=== PATIENT | male | born 1940 | race Caucasian/White ===

== ENCOUNTER 2016-10-02 10:19 | Emergency (ER) | payer MEDICARE, MEDICAID ==
[~2016-10-02] VITALS: Ht 172.7 cm; Wt 83.0 kg
--- NOTE | 2016-10-02 10:40 | NUR ---
PT BIB FAMILY MEMBER FOR RIGHT LEG AND LEFT SHOULDER PAIN. DENIES TRAUMA. NAD NOTED. VSS. SEEN BY MD FOR EVAL. FAMILY MEMBER FOR INFO. SAFETY AND COMFORT MEASURES PROVIDED. WILL MONITOR.
--- NOTE | 2016-10-02 11:02 | NUR ---
ESTEFANY BRUNSON AT FOR DOPPLER STUDY.
--- NOTE | 2016-10-02 11:40 | NUR ---
Patient discharged to home in stable condition. Written and verbal after care instructions given. Patient verbalizes understanding of instruction.
[2016-10-02 11:58] VITALS: BP 152/70
== END 2016-10-02 12:00 | disposition home or self-care (01) ==
LOC: ER 10:22
DX: M77.9 Enthesopathy, unspecified (principal); I10 Essential (primary) hypertension; I49.9 Cardiac arrhythmia, unspecified; N40.0 Benign prostatic hyperplasia without lower urinary tract symptoms
CPT/HCPCS: 73030-TC; 93971-TC; A4606; Z7610

== ENCOUNTER 2020-03-12 08:07 | Inpatient (IN) | payer MEDICARE, OTHER ==
[2020-03-12] VITALS (13 sets, daily range): BP systolic 110–169; BP diastolic 55–96
[~2020-03-12] VITALS: Ht 170.2 cm; Wt 86.2 kg
--- NOTE | 2020-03-12 08:10 | NUR ---
PT BIB FAMILY. COVID + 4 DAYS AGO PER SON. C/O WORSENING SOB AND HYPOXIE W/ O2 SATURATION OF 77% RA . PLACED ON NON REBREATHER MASK WHICH IMPROVES TO 91%. LOW GRADE FEVER CHIEF RADIOLOGY. AWAITING MD AMBROSE.
--- NOTE | 2020-03-12 08:11 | NUR ---
DR RODRIGUEZ INTO SEE PATIENT FOR EVAL.
--- NOTE | 2020-03-12 08:11 | NUR ---
Nat zheng in ED - 03/12/20 at 0912 by LISHA RADIOLOGY AT BEDSIDE FOR CHEST XRAY.
[2020-03-12] MEDS ORDERED: ACETAMINOPHEN ES 500 MG TABLET PO ONE (08:30)
[2020-03-12] MEDS ORDERED: DEXAMETHASONE SOD PHOSPHATE 10 MG/ML VIAL IV ONE (08:30)
[2020-03-12 08:34] LABS: WHITE BLOOD COUNT (AUTO) 9.3 K/uL (4.3-11.0)
[2020-03-12 08:38] LABS: BASOPHILS % (AUTO) 0.1 % (0.0-2.0); EOSINOPHILS % (AUTO) 0.1 % (0.0-6.0); HEMATOCRIT 42 % (39-51); HEMOGLOBIN 13.5 g/dL (13.5-17.5); LYMPHOCYTES # (AUTO) 0.6 /CMM (0.8-4.8); LYMPHOCYTES % (AUTO) 6.1 % (20.0-44.0); MEAN CORPUSCULAR HGB CONC 33 g/dl (31.0-36.0); MEAN CORPUSCULAR VOLUME 91 fL (80-96); MONOCYTES # (AUTO) 0.4 /CMM (0.1-1.30); MONOCYTES % (AUTO) 4.8 % (2.0-12.0); NEUTROPHILS # (AUTO) 8.2 /CMM (1.8-8.9); NEUTROPHILS % (AUTO) 88.9 % (43.0-81.0); PLATELET COUNT (AUTO) 281 /CMM (150-450); RED BLOOD CELL COUNT(AUTO) 4.55 MIL/uL (4.5-6.0)
[2020-03-12] MEDS ORDERED: ACETAMINOPHEN ES 500 MG TABLET ONE (08:40)
[2020-03-12] MEDS ORDERED: DEXAMETHASONE SOD PHOSPHATE 10 MG/ML VIAL ONE (08:40)
--- NOTE | 2020-03-12 08:41 | NUR ---
Nat zheng in [facility] - 03/12/20 at 0842 by CARISSA MOVE SHEET SUBMITTED AND CALLED FOR ICU BED
[2020-03-12] MEDS ORDERED: ASPI-1420 PO (08:43)
[2020-03-12] MEDS ORDERED: ACET-868 PO (08:43)
[2020-03-12] MEDS ORDERED: IBUP-1955 PO (08:43)
--- NOTE | 2020-03-12 08:43 | NUR ---
MOVE SHEET SUBMITTED AND CALLED FOR ICU BED
[2020-03-12 09:00] LABS: ALANINE AMINOTRANSFERASE 54 U/L (12-78); ALBUMIN 2.7 g/dL (3.4-5.0); ALKALINE PHOSPHATASE 55 U/L (46-116); ASPARTATE AMINOTRANSFERASE 53 U/L (15-37); BILIRUBIN,DIRECT 0.2 mg/dL (0.0-0.2); BILIRUBIN,TOTAL 0.5 mg/dL (0.2-1.0); CALCIUM, SERUM 8.3 mg/dL (8.5-10.1); CARBON DIOXIDE 22 mmol/L (21-32); CHLORIDE 95 mmol/L (98-107); CREATININE 1.2 mg/dL (0.6-1.3); GLUCOSE 164 mg/dL (74-106); POTASSIUM 4.2 mmol/L (3.5-5.1); SODIUM SERUM 132 mmol/L (136-145); TOTAL PROTEIN, SERUM 7.8 g/dL (6.4-8.2)
--- NOTE | 2020-03-12 09:07 | NUR ---
PT IS STILL SATTING 86% ON 15L NON REBREATHER MASK. DR RODRIGUEZ MADE AWARE. PLACED ON HIGH FLOW. 60L 100%
[2020-03-12 09:10] LABS: UREA NITROGEN, BLOOD 21 mg/dL (7-18)
--- NOTE | 2020-03-12 09:11 | NUR ---
RADIOLOGY AT BEDSIDE FOR CHEST XRAY.
--- NOTE | 2020-03-12 09:18 | NUR ---
CALLED [facility] FOR [facility] LANDSCAPE ARCHITECT, PAGED
--- NOTE | 2020-03-12 09:58 | NUR ---
room [id number]
--- NOTE | 2020-03-12 10:08 | NUR ---
REPORT GIVEN TO ELVIE COOPER FOR KIKE
--- NOTE | 2020-03-12 10:25 | NUR ---
RN NOTE PATIENT ARRIVED TO UNIT VIA GURNEY ACCOMPANIED BY RN AND RT. PATIENT A/O X4, CITIZEN OF [place] SPEAKING, ABLE TO MAKE NEEDS KNOWN. PATIENT CURRENTLY ON 60L HIGH FLOW OXYGEN VIA NASAL CANNULA AND A 15L NONREBREATHER. OXYGEN SATURATION 96%. NO S/S OF DISTRESS AT THIS TIME. IV ON L AC 20G INTACT AND PATENT, NO S/S OF INFECTION AT THIS TIME. ALL SAFETY MEASURES IN PLACE. BED LOCKED IN LOWEST POSITION CALL LIGHT WITHIN REACH. WILL CONTINUE TO MONITOR AND PROVIDE CARE.
[2020-03-12] MEDS ORDERED: ONDANSETRON HCL/PF 4 MG/2 ML VIAL IVP PRN (10:30)
[2020-03-12] MEDS ORDERED: MAGNESIUM HYDROXIDE 30 ML UDC PO PRN (10:30)
[2020-03-12] MEDS ORDERED: HYDROCODONE/APAP 5/325MG TABLET PO PRN (10:30)
[2020-03-12] MEDS ORDERED: Z GUARD REMEDY 2 OZ OINT TP PRN (10:30)
[2020-03-12] MEDS ORDERED: ENOXAPARIN SODIUM 40 MG/0.4 ML DISP.SYRIN SQ SCH ×3 (10:30→21:00)
[2020-03-12] MEDS ORDERED: ZOLPIDEM TARTRATE 5 MG TABLET PO PRN (10:30)
[2020-03-12] MEDS ORDERED: ACETAMINOPHEN 325 MG TABLET PO PRN (10:30)
[2020-03-12] MEDS ORDERED: MAG HYDROX/AL HYDROX/SIMETH 30 ML UDC PO PRN (10:30)
[2020-03-12] MEDS: ASPIRIN 81 MG TAB.CHEW PO SCH (10:58)
[2020-03-12 11:16] LABS: ABG BASE EXCESS 2.5 mmol/L; ABG OXYGEN SATURATION 95.3 % (92.0-98.5); ABG PCO2 32.6 mmHg (35.0-45.0); ABG PH 7.504 (7.350-7.450); ABG PO2 73.5 mmHg (75.0-100.0); AaDO2 606.9 mmHg; MetHb 0.3 % (0.0-1.5); O2Hb 94.1 % (94.0-97.0); SITE, ABG Right Radial; VENT MODE, BG HFNC 60L 100% +NRB
[2020-03-12 11:48] LABS: THYROID STIMULATING HORMONE 0.573 uIU/mL (0.358-3.74)
[2020-03-12 12:12] LABS: CALCIUM, SERUM 8.2 mg/dL (8.5-10.1); POTASSIUM 4.3 mmol/L (3.5-5.1)
[2020-03-12] MEDS ORDERED: REMDESIVIR (CHARGED) 200 MG, *LOADING DOSE 1 EA in IV NS 0.9% 210 ML IV ONE (13:00)
[2020-03-12] MEDS ORDERED: ENOXAPARIN SODIUM 40 MG/0.4 ML DISP.SYRIN SQ ONE (13:13)
[2020-03-12] MEDS ORDERED: CEFTRIAXONE 1 G in IV D5W 50 ML IV SCH (13:30)
--- NOTE | 2020-03-12 14:54 | NUR ---
PATIENT REMOVED NONREBREATHER MASK, COMPLAINED OF NOISE BEING TOO LOUD. MONITORED PATIENT OFF NONREBREATHER, OXYGEN SATURATION CONTINUED TO BE 95-96% WITH JUST HIGH FLOW OXYGEN.
--- NOTE | 2020-03-12 18:50 | NUR ---
PATIENT PLACED BACK ON NONREBREATHER DUE TO DESATURATING DOWN TO 88. RT INFORMED TO ASSESS PATIENT.
--- NOTE | 2020-03-12 19:15 | NUR ---
RN CLOSING NOTE PATIENT CURRENTLY IN BED, RESTING. PATIENT A/O X4, AFGHAN SPEAKING, ABLE TO MAKE NEEDS KNOWN. PATIENT CURRENTLY ON 60L HIGH FLOW OXYGEN VIA NASAL CANNULA AND A 15L NONREBREATHER. OXYGEN SATURATION 92%. NO S/S OF DISTRESS AT THIS TIME. IV ON L AC 20G INTACT AND PATENT, NO S/S OF INFECTION AT THIS TIME. ALL SAFETY MEASURES IN PLACE. BED LOCKED IN LOWEST POSITION CALL LIGHT WITHIN REACH. WILL ENDORSE TO RETOUCHING OPERATOR NURSE FOR KIKE.
--- NOTE | 2020-03-12 19:23 | NUR ---
RT NOTE PT RECEIVED ON HFNC 60L 100% W/O NON REBREATHER SATURATING 94%. PT SITING UP RESTING COMFORTABLY. NO SOB OR RESPIRATORY DISTRESS NOTED @ THIS TIME. Addendum: 03/12/20 at 2201 by OSCAR LOUIS RT Amended: Links added. Addendum: 03/12/20 at 2212 by OSCAR LOUIS RT WITH NON REBREATHER @ 15L 100%
--- NOTE | 2020-03-12 19:35 | NUR ---
RN NOTES RECEIVED PATIENT IN BED, ALERT AND ORIENTED X 4. VERBALLY RESPONSIVE. ON O2 HIGHFLOW AT 60L AND NONREBREATER 15L. O2 SAT AT 92 %. PT DENIES ANY SOB. HOB SLIGHTLY ELEVATED. ON TELE MONITOR, SR HR AT 95. IV ON LAC, FLUSHED. PATENT AND INTACT. NO INFILTRATION NOTED. ALL SAFETY MEASURES IMPLEMENTED PER PROTOCOL. SIDE RAILS UP X 2. CALL LIGHT WITHIN REACH. BED LOCKED IN LOWEST POSITION.
--- NOTE | 2020-03-12 20:20 | NUR ---
RN NOTE PATIENT STARTED HAVING SHORTNESS OF BREATH, REMAINS IN BED. O2 SAT AT 77 % WITH HFNC 60L AND NONREBREATHER. PT RESPONDING VERBALLY. CALLED RT. RELAXATION TECHNIQUES GIVEN.
--- NOTE | 2020-03-12 20:45 | NUR ---
RN NOTE PT STILL HAVING SOB. WITH O2 SAT AT 81%. RT, CHARGE NURSE AND PT DAUGHTER, VIDYA AT BEDSIDE. ABG WAS ORDERED, NOTED AND CARRIED OUT.
[2020-03-12 20:54] LABS: ABG BASE EXCESS -3.7 mmol/L; ABG OXYGEN SATURATION 75.8 % (92.0-98.5); ABG PCO2 30.5 mmHg (35.0-45.0); ABG PH 7.423 (7.350-7.450); AaDO2 641.5 mmHg; COHb 0.5 % (0.5-1.5); MetHb 0.3 % (0.0-1.5); O2Hb 75.2 % (94.0-97.0); SITE, ABG Right Radial; VENT MODE, BG HFNC 60L 100% + NRB
--- NOTE | 2020-03-12 20:56 | NUR ---
RN NOTE SALES REPRESENTATIVE MARINE SUPPLIES TOMMY PERDOMO NOTIFIED ABOUT ABG RESULTS. GAVE ORDERS TO INTUBATE PT. HR 158. BP 118/92 R 30 02 SAT 74 %. CALLED ER DOCTOR.
--- NOTE | 2020-03-12 21:25 | NUR ---
RN NOTES PT INTUBATED BY DR MARTIN.
--- NOTE | 2020-03-12 21:32 | NUR ---
RN NOTE S/P INTUBATION PT WENT TO VTACH. HR 178 BP 127/94. PER DR MARTIN, ITS STABLE VTACH. EKG WAS ORDERED.
--- NOTE | 2020-03-12 21:33 | NUR ---
RN NOTE CHILDCARE DIRECTOR LEANNE ORDERED PROPOFOL. NOTED AND CARRIED OUT. STARTED PROPOFOL PER PROTOCOL, 5 MCG/KG/MIN.
--- NOTE | 2020-03-12 21:50 | NUR ---
RN NOTE AMIODARONE DRIP STARTED BY CHARGE NURSE. STARTED AT 1MG FOR 6 HOURS
--- NOTE | 2020-03-12 22:00 | NUR ---
RN NOTE PT REMAINS SEDATED. VENT SETTINGS TOLERATING WELL. NO DISTRESS NOTED. NO S/SX OF PAIN. BILATERAL SOFT WRIST RESTRAINT ON. BP 137/96 HR 169. WILL CONTINUE TO MONITOR.
[2020-03-12] MEDS: PROPOFOL 100 ML IV PRN (22:02)
[2020-03-12] MEDS: ENOXAPARIN SODIUM 80 MG/0.8 ML DISP.SYRIN SQ SCH (22:12)
[2020-03-12] MEDS ORDERED: IV LIDOCAINE HCL/D5W/PF/500ML 2,000 MG in PREMIX 1 EA IV PRN (22:30)
[2020-03-12] MEDS: AMIODARONE 450 MG in IV D5W 250 ML IV PRN (22:53)
[2020-03-12 23:19] LABS: ABG BASE EXCESS -7.8 mmol/L; ABG OXYGEN SATURATION 96.5 % (92.0-98.5); ABG PCO2 41.4 mmHg (35.0-45.0); ABG PH 7.272 (7.350-7.450); ABG PO2 98.4 mmHg (75.0-100.0); AaDO2 573.2 mmHg; COHb 0.8 % (0.5-1.5); MetHb 0.1 % (0.0-1.5); O2Hb 95.6 % (94.0-97.0); PEEP,BG 10 cm H2O; SITE, ABG Right Radial; VENT MODE, BG AC 100%; VT, ABG 500 mL
[2020-03-12 23:21] LABS: MAGNESIUM 2.4 mg/dL (1.8-2.4)
[2020-03-12] MEDS ORDERED: CEFEPIME 1 GM VIAL ONE (23:25)
--- NOTE | 2020-03-12 23:29 | NUR ---
RN NOTE RECEIVED A CALL FROM ELAINE FROM LAB, LACTIC ACID 5.5 AND TROPONIN I 10.436. VARNISH MIXER TOMMY PERDOMO MADE AWARE, NO NEW ORDER AT THIS TIME.
[2020-03-12] MEDS ORDERED: SODIUM BICARBONATE SYR 50 MEQ/50 ML DISP.SYRIN IV ONE (23:30)
--- NOTE | 2020-03-12 23:30 | NUR ---
RN NOTE ABG RESULT PH 7.272, PCO2 41.4 PO2 98.4 HCO3 18.7 B 7.8. DERRICK BOAT OPERATOR KE AWARE. ORDERED SODIUM BICARB 1AMP. NOTED AND CARRIED OUT.
[2020-03-12] MEDS: CEFEPIME 2 GM in IV D5W 100 ML IV SCH (23:33)
[2020-03-13] VITALS (79 sets, daily range): BP systolic 69–132; BP diastolic 44–89
--- NOTE | 2020-03-13 00:35 | NUR ---
RN NOTE JEFFERSON CATHETER INSERTED, WITH CLEAR URINE OUTPUT, INDWELLING WELL. NO S/SX OF INFECTION.
[2020-03-13] MEDS: NOREPINEPHRINE 32 MG in IV NS 0.9% 218 ML IV PRN ×2 (00:37→10:03)
[2020-03-13] MEDS ORDERED: AMIODARONE 150 MG/3 ML VIAL IV ONE ×2 (03:11→09:07)
[2020-03-13] MEDS ORDERED: TAMS-12 PO (04:30)
[2020-03-13] MEDS ORDERED: FINA5TAB11 PO (04:30)
--- NOTE | 2020-03-13 04:30 | NUR ---
RN NOTE NOTED WITH ELEVATED TEMP OF 101.9. COOLING MEASURES APPLIES. PT REMAINS SEDATED. SHEARER PRINTED CIRCUIT BOARDS TOMMY PERDOMO NOTIFIED. ATTEMPTED TO INSERT NGT. PT DAUGHTER VIDYA, REFUSED.
[2020-03-13 06:05] LABS: ABG BASE EXCESS -1.3 mmol/L; ABG OXYGEN SATURATION 99.1 % (92.0-98.5); ABG PCO2 33.2 mmHg (35.0-45.0); AaDO2 392.8 mmHg; COHb 0.1 % (0.5-1.5); MetHb 0.3 % (0.0-1.5); O2Hb 98.7 % (94.0-97.0); PEEP,BG 15 cm H2O; SITE, ABG Right Radial; VENT MODE, BG AC 30 500 100% +15; VT, ABG 500 mL
[2020-03-13 06:07] LABS: BASOPHILS % (AUTO) 0.2 % (0.0-2.0); HEMATOCRIT 43 % (39-51); HEMOGLOBIN 13.9 g/dL (13.5-17.5); LYMPHOCYTES # (AUTO) 0.8 /CMM (0.8-4.8); LYMPHOCYTES % (AUTO) 4.6 % (20.0-44.0); MEAN CORPUSCULAR HGB CONC 33 g/dl (31.0-36.0); MEAN CORPUSCULAR VOLUME 89 fL (80-96); MONOCYTES # (AUTO) 1.2 /CMM (0.1-1.30); MONOCYTES % (AUTO) 6.7 % (2.0-12.0); NEUTROPHILS # (AUTO) 15.9 /CMM (1.8-8.9); NEUTROPHILS % (AUTO) 88.5 % (43.0-81.0); PLATELET COUNT (AUTO) 440 /CMM (150-450); RED BLOOD CELL COUNT(AUTO) 4.77 MIL/uL (4.5-6.0); WHITE BLOOD COUNT (AUTO) 17.9 K/uL (4.3-11.0)
[2020-03-13 06:24] LABS: ALANINE AMINOTRANSFERASE 855 U/L (12-78); ALBUMIN 2.3 g/dL (3.4-5.0); ALKALINE PHOSPHATASE 72 U/L (46-116); ASPARTATE AMINOTRANSFERASE 925 U/L (15-37); BILIRUBIN,DIRECT 0.5 mg/dL (0.0-0.2); BILIRUBIN,TOTAL 0.6 mg/dL (0.2-1.0); CALCIUM, SERUM 8.1 mg/dL (8.5-10.1); CARBON DIOXIDE 25 mmol/L (21-32); CHLORIDE 98 mmol/L (98-107); CREATININE 1.8 mg/dL (0.6-1.3); GLUCOSE 169 mg/dL (74-106); MAGNESIUM 2.5 mg/dL (1.8-2.4); PHOSPHORUS 3.7 mg/dL (2.5-4.9); POTASSIUM 4.5 mmol/L (3.5-5.1); SODIUM SERUM 133 mmol/L (136-145); TOTAL PROTEIN, SERUM 6.9 g/dL (6.4-8.2); UREA NITROGEN, BLOOD 31 mg/dL (7-18)
[2020-03-13 06:33] LABS: CHOLESTEROL 183 mg/dL (<200); HDL CHOLESTEROL 33 mg/dL (40-60); LDL 126 mg/dL (0-99); THYROID STIMULATING HORMONE 0.296 uIU/mL (0.358-3.74); TRIGLYCERIDES 167 mg/dL (30-150)
--- NOTE | 2020-03-13 06:50 | NUR ---
RN NOTE TRANSFERRED PT TO ICU. PT REMAIN SEDATED, TOLERATING VENT SETTINGS. ON PROPOFOL 40MCG/KG/MIN, ON AMIODARONE DRIP 0.5MG AND LEVOPHED AT O.4MCG. NO DISTRESS NOTED. REPORTED TO ICU NURSE GINA REGARDING PTS STATUS, AND ELEVATED BODY TEMP.
[2020-03-13] MEDS: AMIODARONE 450 MG in IV D5W 250 ML IV PRN (07:05)
--- NOTE | 2020-03-13 07:06 | NUR ---
COMPUTER TYPESETTER RCDanny PT FROM ICU OF PT IS NSR ON MONITOR. SEDATED ON PROPOFOL @ 40 MCG/KG/MIN. BSWR IN PLACE FOR SAFETY. INTUBATED 7.5@ 23 W/VENT SETTINGS AC 30 500 100% +5. JEFFERSON CATH IN PLACE DRAINING YELLOW COLORED URINE. TRINITY PICC PATENT. NO SKIN ISSUES AT THIS TIME. PENDING BLE DOPPLER TO R/O DVT. DAUGHTER AT BEDSIDE.
--- NOTE | 2020-03-13 07:27 | NUR ---
decreased fio2 from 100% to 60% due to 287 pao2 and 100% spo2. rn notified on changes. Addendum: 03/13/20 at 0728 by MIKAL ROSENBAUM RT Amended: Links added.
[2020-03-13] MEDS ORDERED: PANTOPRAZOLE 40 MG TABLET.DR PO SCH (07:30)
[2020-03-13 07:31] LABS: FERRITIN 4976 ng/mL (8-388)
--- NOTE | 2020-03-13 08:00 | NUR ---
RN NOTES RECEIVED PATIENT IN THE BED EET SEETHING WITH MECHANICAL VENTILATOR, TOLERATING WELL, OGT INSERTED, INFUSING ON TRINITY PICC LINE DIPRIVAN 4MCG, LEVOPHED 0.4 MCG, PATIENT T-100.3 F, COOLING MEASURE DONE, ALSO ADMINISTERED TYLENOL VIA OGT, AND SCHEDULED MEDICATION. JEFFERSON DRAINING YELLOW OUTPUT, ASSIST TURN AND REPOSTION Q 2 HR. WILL MONITORING.
[2020-03-13] MEDS: PROPOFOL 100 ML IV PRN ×7 (08:34→22:42)
--- NOTE | 2020-03-13 08:44 | NUR ---
vent changes below per dr. red: fio2 50% peep + 10 rn notified on changes. Addendum: 03/13/20 at 0845 by MIKAL ROSENBAUM RT Amended: Links added.
[2020-03-13] MEDS ORDERED: VANCOMYCIN 1 GM in IV D5W 250ml IV SCH (09:00)
[2020-03-13] MEDS ORDERED: FEE EMEERGENCY 1 MIN EA MC ONE (09:07)
[2020-03-13] MEDS: DEXAMETHASONE SOD PHOSPHATE 10 MG/ML VIAL IV SCH (09:29)
[2020-03-13] MEDS: HYDROCORTISONE SOD SUCCINATE 100 MG/2 ML VIAL IV SCH ×3 (09:29→21:57)
[2020-03-13] MEDS: ASPIRIN 81 MG TAB.CHEW PO SCH (09:29)
[2020-03-13] MEDS: ENOXAPARIN SODIUM 80 MG/0.8 ML DISP.SYRIN SQ SCH ×2 (09:39→21:57)
[2020-03-13] MEDS: ACETAMINOPHEN 650 MG/20.3 ML UDC NG PRN (10:30)
--- NOTE | 2020-03-13 10:31 | NUR ---
rn notes administered tylenol 650 ml via OGT, and scheduled medication, echo done EF 15 to 20, per US it help desk technician will notify wall scraper Dr Shelton.
[2020-03-13] MEDS: CEFEPIME 2 GM in IV D5W 100 ML IV SCH ×2 (11:11→21:59)
[2020-03-13] MEDS ORDERED: REMDESIVIR (CHARGED) 100 MG in IV NS 0.9% 230 ML IV SCH (13:00)
--- NOTE | 2020-03-13 14:03 | NUR ---
rn notes GET LAB RESULT TROPONIN LEVEL 159.49 CRITICAL RESULT , NOTIFIED BONUS CLERK Dr KAMARA, WAITING FOR RESPOND.
--- NOTE | 2020-03-13 18:37 | NUR ---
rn notes pm care done, v/s stable, patient tolerating EET setting well. Patient on Diprivan 75mcg, Levophed 0.3 mcg at this time, assist turn and reposition q 2 hr, Frank draining 725ml output, endorsed oncoming nurse follow plan of care.
--- NOTE | 2020-03-13 20:27 | NUR ---
RT pt found on mechanical vent with current settings. orally intubated. ett size 7.5, 22@lip. charting states 23@lip, pt has good volume on vent. will notify day shift. jay harvey, made aware. ett secure. vent plugged in to red outlet. ambu bag at bedside. small, thick blood tinged/phillips secretions suctioned via ett. will continue to monitor.
[2020-03-14] VITALS (87 sets, daily range): BP systolic 90–154; BP diastolic 56–101
[2020-03-14 05:00] LABS: BASOPHILS % (AUTO) 0.2 % (0.0-2.0); HEMATOCRIT 41 % (39-51); HEMOGLOBIN 13.4 g/dL (13.5-17.5); LYMPHOCYTES # (AUTO) 0.7 /CMM (0.8-4.8); LYMPHOCYTES % (AUTO) 4.2 % (20.0-44.0); MEAN CORPUSCULAR HGB CONC 33 g/dl (31.0-36.0); MEAN CORPUSCULAR VOLUME 89 fL (80-96); MONOCYTES # (AUTO) 0.4 /CMM (0.1-1.30); MONOCYTES % (AUTO) 2.8 % (2.0-12.0); NEUTROPHILS # (AUTO) 14.9 /CMM (1.8-8.9); NEUTROPHILS % (AUTO) 92.8 % (43.0-81.0); PLATELET COUNT (AUTO) 456 /CMM (150-450); RED BLOOD CELL COUNT(AUTO) 4.63 MIL/uL (4.5-6.0)
[2020-03-14 05:13] LABS: CALCIUM, SERUM 7.9 mg/dL (8.5-10.1); CARBON DIOXIDE 25 mmol/L (21-32); CHLORIDE 102 mmol/L (98-107); CREATININE 1.7 mg/dL (0.6-1.3); GLUCOSE 199 mg/dL (74-106); POTASSIUM 3.5 mmol/L (3.5-5.1); SODIUM SERUM 138 mmol/L (136-145); UREA NITROGEN, BLOOD 34 mg/dL (7-18)
[2020-03-14 05:14] LABS: ALANINE AMINOTRANSFERASE 595 U/L (12-78); ALBUMIN 1.9 g/dL (3.4-5.0); ALKALINE PHOSPHATASE 70 U/L (46-116); ASPARTATE AMINOTRANSFERASE 414 U/L (15-37); BILIRUBIN,TOTAL 0.6 mg/dL (0.2-1.0); MAGNESIUM 2.7 mg/dL (1.8-2.4); PHOSPHORUS 3.3 mg/dL (2.5-4.9); TOTAL PROTEIN, SERUM 6.8 g/dL (6.4-8.2)
[2020-03-14] MEDS: HYDROCORTISONE SOD SUCCINATE 100 MG/2 ML VIAL IV SCH ×3 (05:35→22:28)
[2020-03-14] MEDS: PROPOFOL 100 ML IV PRN ×5 (06:28→23:27)
[2020-03-14] MEDS ORDERED: ASPIRIN 81 MG TAB.CHEW NG SCH (06:44)
[2020-03-14] MEDS ORDERED: MAG HYDROX/AL HYDROX/SIMETH 30 ML UDC NG PRN (06:44)
[2020-03-14] MEDS ORDERED: MAGNESIUM HYDROXIDE 30 ML UDC NG PRN (06:45)
[2020-03-14] MEDS: NOREPINEPHRINE 32 MG in IV NS 0.9% 218 ML IV PRN (07:53)
--- NOTE | 2020-03-14 08:00 | NUR ---
received pt from operations supervisor 2nd shift, sedated on Diprivan at 75mcg, SR, intubated, sat well on 50% fi02, peep 10, lungs congested, no edema, OG clamped, f/c good output, v/s stable, no pain, pt turned and repositioned.
--- NOTE | 2020-03-14 08:06 | NUR ---
Patient remains in no acute distress in bed. patient tolerating vent setting well with o2 sat @ 94%. Patient currently on pressure support medication Levo @ 0.2 mcg. Patient is sedated on propofol @ 75 mcg. Patient is sedated and not showing any s/s of difficulty breathing or pain at this time. Patient turned and repositioned Q2H and bath given at 0400. Skin is clean dry and intact. Oral care performed Q4H PRN. bed in low lock position with rails up x 2. call light within reach and all safety measures ensured and carried out. will endorse care to am RN for continuity of care.
[2020-03-14 08:34] LABS: BILIRUBIN,DIRECT 0.4 mg/dL (0.0-0.2); BILIRUBIN,TOTAL 0.5 mg/dL (0.2-1.0); TOTAL PROTEIN, SERUM 6.8 g/dL (6.4-8.2)
[2020-03-14] MEDS: ZINC SULFATE 220 MG CAPSULE PO SCH (08:42)
[2020-03-14] MEDS: CHOLECALCIFEROL 1,000 UNIT TABLET (VIT D3) PO SCH (08:42)
[2020-03-14] MEDS: ASPIRIN 81 MG TAB.CHEW NG SCH (08:42)
[2020-03-14] MEDS: DEXAMETHASONE SOD PHOSPHATE 10 MG/ML VIAL IV SCH (08:42)
[2020-03-14] MEDS: PANTOPRAZOLE 40 MG/PACK PACK NG SCH (08:42)
[2020-03-14] MEDS: ENOXAPARIN SODIUM 80 MG/0.8 ML DISP.SYRIN SQ SCH ×2 (08:50→22:29)
--- NOTE | 2020-03-14 15:24 | NUR ---
ETT PUSHED IN AND SECURED AT 28CM AT THE LIP PER DR PELEG. ALLISON FRENCH AWARE Addendum: 03/14/20 at 1525 by OMER MICHELLE Amended: Links added.
--- NOTE | 2020-03-14 16:54 | NUR ---
pt is resting in the bed, sedated on Diprivan at 75mcg, SR, sat well on 50% fio2, good urine output, v/s stable, no pain, pt cleaned, changed and repositioned.
--- NOTE | 2020-03-14 20:16 | NUR ---
PT REC'D ORALLY INTUBATED VIA ETT 7.5 SECURED @ 28 [facility] WITH THE SETTINGS OF AC 30, 500,50%,PEEP 10. NO RESPIRATORY DISTRESS NOTED AT THIS TIME. SX DONE . ALARMS ARE SET AND AUDIBLE. VENT PLUGGED INTO RED OUTLET. AMBU BAG@ BEDSIDE. WILL CONTINUE TO MONITOR T/O THE SHIFT.
[2020-03-14] MEDS: CEFEPIME 2 GM in IV D5W 100 ML IV SCH (22:31)
[2020-03-15] VITALS (91 sets, daily range): BP systolic 77–138; BP diastolic 48–89
[2020-03-15] MEDS: PROPOFOL 100 ML IV PRN ×8 (02:00→23:56)
[2020-03-15 05:20] LABS: BASOPHILS % (AUTO) 0.2 % (0.0-2.0); HEMATOCRIT 41 % (39-51); HEMOGLOBIN 13.5 g/dL (13.5-17.5); LYMPHOCYTES # (AUTO) 0.7 /CMM (0.8-4.8); LYMPHOCYTES % (AUTO) 4.6 % (20.0-44.0); MEAN CORPUSCULAR HGB CONC 33 g/dl (31.0-36.0); MEAN CORPUSCULAR VOLUME 89 fL (80-96); MONOCYTES # (AUTO) 0.4 /CMM (0.1-1.30); MONOCYTES % (AUTO) 2.9 % (2.0-12.0); NEUTROPHILS # (AUTO) 13.9 /CMM (1.8-8.9); NEUTROPHILS % (AUTO) 92.3 % (43.0-81.0); PLATELET COUNT (AUTO) 533 /CMM (150-450); RED BLOOD CELL COUNT(AUTO) 4.54 MIL/uL (4.5-6.0); WHITE BLOOD COUNT (AUTO) 15.1 K/uL (4.3-11.0)
[2020-03-15 05:33] LABS: ALANINE AMINOTRANSFERASE 475 U/L (12-78); ALKALINE PHOSPHATASE 74 U/L (46-116); ASPARTATE AMINOTRANSFERASE 194 U/L (15-37); BILIRUBIN,DIRECT 0.4 mg/dL (0.0-0.2); BILIRUBIN,TOTAL 0.6 mg/dL (0.2-1.0); CARBON DIOXIDE 23 mmol/L (21-32); CHLORIDE 104 mmol/L (98-107); CREATININE 1.8 mg/dL (0.6-1.3); GLUCOSE 213 mg/dL (74-106); SODIUM SERUM 140 mmol/L (136-145); UREA NITROGEN, BLOOD 41 mg/dL (7-18)
[2020-03-15 05:35] LABS: ABG OXYGEN SATURATION 96.9 % (92.0-98.5); ABG PCO2 32.7 mmHg (35.0-45.0); ABG PH 7.434 (7.350-7.450); ABG PO2 93.8 mmHg (75.0-100.0); AaDO2 225.9 mmHg; COHb 0.6 % (0.5-1.5); MetHb 0.3 % (0.0-1.5); PEEP,BG 10 cm H2O; SITE, ABG Right Radial; VT, ABG 500 mL
[2020-03-15 05:39] LABS: ALBUMIN 1.8 g/dL (3.4-5.0)
[2020-03-15 06:05] LABS: FERRITIN 2745 ng/mL (8-388)
[2020-03-15] MEDS: HYDROCORTISONE SOD SUCCINATE 100 MG/2 ML VIAL IV SCH ×3 (06:22→19:00)
[2020-03-15] MEDS ORDERED: IBUPROFEN 600 MG TABLET PO PRN (08:30)
[2020-03-15] MEDS ORDERED: ACETAMINOPHEN 325 MG TABLET PO PRN (08:30)
[2020-03-15] MEDS ORDERED: ASPIRIN EC 81 MG TABLET.DR PO SCH (09:00)
--- NOTE | 2020-03-15 09:11 | NUR ---
WOUND CARE CONSULT: REVIEWED CHART, NURSING DOCUMENTATION WHICH INDICATES INTUBATED PATIENT. RECOMMENDATIONS MADE FOR SKIN PROTECTION. DISCUSSED WITH NURSING STAFF. PT IS ON [facility] LOW AIRSS BED. MD IN AGREEMENT WITH PLAN OF CARE.
[2020-03-15] MEDS: ZINC SULFATE 220 MG CAPSULE PO SCH (09:38)
[2020-03-15] MEDS: CHOLECALCIFEROL 1,000 UNIT TABLET (VIT D3) PO SCH (09:38)
[2020-03-15] MEDS: DEXAMETHASONE SOD PHOSPHATE 10 MG/ML VIAL IV SCH (09:38)
[2020-03-15] MEDS: ASPIRIN 81 MG TAB.CHEW NG SCH (09:38)
[2020-03-15] MEDS: TAMSULOSIN 0.4 MG CAP.SR.24H PO SCH (09:39)
[2020-03-15] MEDS: PANTOPRAZOLE 40 MG/PACK PACK NG SCH (09:39)
[2020-03-15] MEDS: FINASTERIDE (5 MG) 5 MG TABLET PO SCH (09:39)
[2020-03-15] MEDS: ENOXAPARIN SODIUM 80 MG/0.8 ML DISP.SYRIN SQ SCH ×2 (09:40→21:39)
[2020-03-15] MEDS: NOREPINEPHRINE 32 MG in IV NS 0.9% 218 ML IV PRN (11:56)
[2020-03-15] MEDS: PROSOURCE / PROSTAT (PYXIS) 30 ML UDC GT SCH (17:24)
[2020-03-15] MEDS: CEFEPIME 2 GM in IV D5W 100 ML IV SCH (21:38)
--- NOTE | 2020-03-15 21:48 | NUR ---
RT NOTE PT RECEIVED INTUBATED WITH 7.5 ET TUBE @ 28 CM. SX DONE, SMALL CLEAR SECRETIONS NOTED. BILATERAL CHEST RISE NOTED. NO DISTRESS NOTED. ALARMS ON AND AUDIBLE. VENT PLUGGED TO RED OUTLET. WILL CONTINUE TO MONITOR CLOSELY. Addendum: 03/15/20 at 2150 by GIA FERRIS RT Amended: Links added.
--- NOTE | 2020-03-15 22:00 | NUR ---
agricultural produce sorter. initial assessment, received the pt orally intubated. sedated with diprivan. ett 7.5,lip 26,ac 30,tv 500,fio2 50%,peep 10. sat 98%, no acute distress noted, capacity planning engineer showing nsr.iv rt upper arm picc line levophed 0.1mcg/kg/min,propofol 55mcg/kg/min, hob elevated. ogt feeding tolerated well. fc patent. omar soft wrist restraint checked and released. no injue=ry or redness noted. turn and reposition will continue to monitor vitals,
[2020-03-16] VITALS (90 sets, daily range): BP systolic 93–144; BP diastolic 49–81
--- NOTE | 2020-03-16 01:00 | NUR ---
agriculture engineer. 0000. fever 100. tylenol given per ordered
[2020-03-16 04:19] LABS: BASOPHILS % (AUTO) 0.1 % (0.0-2.0); HEMATOCRIT 38 % (39-51); HEMOGLOBIN 12.3 g/dL (13.5-17.5); LYMPHOCYTES # (AUTO) 0.9 /CMM (0.8-4.8); LYMPHOCYTES % (AUTO) 5.8 % (20.0-44.0); MEAN CORPUSCULAR HGB CONC 33 g/dl (31.0-36.0); MEAN CORPUSCULAR VOLUME 90 fL (80-96); MONOCYTES # (AUTO) 0.4 /CMM (0.1-1.30); MONOCYTES % (AUTO) 2.9 % (2.0-12.0); NEUTROPHILS # (AUTO) 13.5 /CMM (1.8-8.9); NEUTROPHILS % (AUTO) 91.2 % (43.0-81.0); PLATELET COUNT (AUTO) 495 /CMM (150-450); RED BLOOD CELL COUNT(AUTO) 4.21 MIL/uL (4.5-6.0); WHITE BLOOD COUNT (AUTO) 14.9 K/uL (4.3-11.0)
[2020-03-16 04:31] LABS: ALANINE AMINOTRANSFERASE 321 U/L (12-78); ALBUMIN 1.6 g/dL (3.4-5.0); ALKALINE PHOSPHATASE 75 U/L (46-116); ASPARTATE AMINOTRANSFERASE 129 U/L (15-37); BILIRUBIN,DIRECT 0.4 mg/dL (0.0-0.2); BILIRUBIN,TOTAL 0.5 mg/dL (0.2-1.0); CALCIUM, SERUM 8.1 mg/dL (8.5-10.1); CARBON DIOXIDE 26 mmol/L (21-32); CHLORIDE 107 mmol/L (98-107); GLUCOSE 203 mg/dL (74-106); POTASSIUM 3.9 mmol/L (3.5-5.1); SODIUM SERUM 143 mmol/L (136-145); TOTAL PROTEIN, SERUM 6.6 g/dL (6.4-8.2); UREA NITROGEN, BLOOD 60 mg/dL (7-18)
[2020-03-16 05:24] LABS: ABG BASE EXCESS -0.6 mmol/L; ABG PCO2 35.1 mmHg (35.0-45.0); ABG PH 7.437 (7.350-7.450); ABG PO2 73.6 mmHg (75.0-100.0); AaDO2 315.6 mmHg; COHb 0.9 % (0.5-1.5); MetHb 0.3 % (0.0-1.5); O2Hb 92.9 % (94.0-97.0); PEEP,BG 5 cm H2O; SITE, ABG Right Radial; VENT MODE, BG AC 30 500 60%+5; VT, ABG 500 mL
--- NOTE | 2020-03-16 07:03 | NUR ---
rn surgery icu. am care, given. linen changed, remaining same vent setting tolearted well. sat 94%, no acute distress noted. laboratory monitor showing nsr. iv rt upper arm picc line. levophed 0.1mcg/kg/min, diprivan 55mcg/kg/min. hob eleavted. ogt feeding tolerated well. febrile at this time. turn and reposition q2h. will continue to monitor vitals.
--- NOTE | 2020-03-16 07:06 | NUR ---
vocational horticulture instructor. fc patent. urine draining. omar soft wrist restraint checked and released. no injury or redness noted.
[2020-03-16] MEDS: ASPIRIN 81 MG TAB.CHEW NG SCH (08:23)
[2020-03-16] MEDS: CHOLECALCIFEROL 1,000 UNIT TABLET (VIT D3) PO SCH (08:23)
[2020-03-16] MEDS: ZINC SULFATE 220 MG CAPSULE PO SCH (08:23)
[2020-03-16] MEDS: TAMSULOSIN 0.4 MG CAP.SR.24H PO SCH (08:23)
[2020-03-16] MEDS: PANTOPRAZOLE 40 MG/PACK PACK NG SCH (08:23)
[2020-03-16] MEDS: HYDROCORTISONE SOD SUCCINATE 100 MG/2 ML VIAL IV SCH ×2 (08:23→16:07)
[2020-03-16] MEDS: FINASTERIDE (5 MG) 5 MG TABLET PO SCH (08:23)
[2020-03-16] MEDS: DEXAMETHASONE SOD PHOSPHATE 10 MG/ML VIAL IV SCH (08:23)
[2020-03-16] MEDS: PROSOURCE / PROSTAT (PYXIS) 30 ML UDC GT SCH ×2 (08:25→16:07)
[2020-03-16] MEDS: ENOXAPARIN SODIUM 80 MG/0.8 ML DISP.SYRIN SQ SCH ×2 (08:27→21:13)
[2020-03-16] MEDS: PROPOFOL 100 ML IV PRN ×5 (10:13→23:28)
[2020-03-16] MEDS: NOREPINEPHRINE 32 MG in IV NS 0.9% 218 ML IV PRN (17:15)
[2020-03-16] MEDS: GLUCERNA 1.2 1,000 ML BOTTLE NG PRN (17:19)
[2020-03-16] MEDS: CEFEPIME 2 GM in IV D5W 100 ML IV SCH (21:11)
[2020-03-17] VITALS (94 sets, daily range): BP systolic 91–120; BP diastolic 50–66
[2020-03-17] MEDS: PROPOFOL 100 ML IV PRN ×5 (03:21→19:00)
[2020-03-17 05:38] LABS: BASOPHILS % (AUTO) 0.2 % (0.0-2.0); HEMATOCRIT 36 % (39-51); HEMOGLOBIN 11.8 g/dL (13.5-17.5); LYMPHOCYTES # (AUTO) 0.7 /CMM (0.8-4.8); MEAN CORPUSCULAR HGB CONC 33 g/dl (31.0-36.0); MEAN CORPUSCULAR VOLUME 91 fL (80-96); MONOCYTES # (AUTO) 0.5 /CMM (0.1-1.30); MONOCYTES % (AUTO) 3.4 % (2.0-12.0); NEUTROPHILS # (AUTO) 12.4 /CMM (1.8-8.9); NEUTROPHILS % (AUTO) 91.4 % (43.0-81.0); PLATELET COUNT (AUTO) 479 /CMM (150-450); RED BLOOD CELL COUNT(AUTO) 3.94 MIL/uL (4.5-6.0); WHITE BLOOD COUNT (AUTO) 13.6 K/uL (4.3-11.0)
[2020-03-17 05:39] LABS: CARBON DIOXIDE 26 mmol/L (21-32); CHLORIDE 112 mmol/L (98-107); CREATININE 1.7 mg/dL (0.6-1.3); GLUCOSE 160 mg/dL (74-106); POTASSIUM 4.4 mmol/L (3.5-5.1); SODIUM SERUM 149 mmol/L (136-145); UREA NITROGEN, BLOOD 74 mg/dL (7-18)
--- NOTE | 2020-03-17 05:45 | NUR ---
COUNSELING CASE MANAGER PER REPORT PT NEEDS CONVALESCENT PLASMA TO BE GIVEN HOWEVER PER LAB KIERRA THE ORDER IS NOT INPUT CORRECTLY AND NURSE UNABLE TO ENTER IT. S/W KIERRA WHO GAVE INSTRUCTIONS ON HOW TO PLACE ORDER FOR BLOOD PRODUCT. ORDERS ENTERED AND S/W KATALINA WHO SAID ALL PAPER WORK WAS IN PLACE AND SHE WOULD CALL [facility] TO REQUEST THE PRODUCT. PT WAS TYPE AND SCREENED.
--- NOTE | 2020-03-17 07:17 | NUR ---
RN NOTES RECEIVED PT ON BED, INTUBATED, SEDATED , CURRENT VENT SETTING WELL, ON TELE SR HR IN 60'S , JEFFERSON DRAINING TO GRAVITY, R UPPER ARM PICC LINE SITE CLEAN ,DRY AND INTACT, SR UP x3, CALL LIGHT WITHIN EASY REACH , CONTINUE TO MONITOR .
[2020-03-17] MEDS: TAMSULOSIN 0.4 MG CAP.SR.24H PO SCH (08:21)
[2020-03-17] MEDS: FINASTERIDE (5 MG) 5 MG TABLET PO SCH (08:21)
[2020-03-17] MEDS: ASPIRIN 81 MG TAB.CHEW NG SCH (08:21)
[2020-03-17] MEDS: ZINC SULFATE 220 MG CAPSULE PO SCH (08:21)
[2020-03-17] MEDS: PANTOPRAZOLE 40 MG/PACK PACK NG SCH (08:21)
[2020-03-17] MEDS: DEXAMETHASONE SOD PHOSPHATE 10 MG/ML VIAL IV SCH (08:22)
[2020-03-17] MEDS: CHOLECALCIFEROL 1,000 UNIT TABLET (VIT D3) PO SCH (08:22)
[2020-03-17] MEDS: HYDROCORTISONE SOD SUCCINATE 100 MG/2 ML VIAL IV SCH ×2 (08:22→16:58)
[2020-03-17] MEDS: PROSOURCE / PROSTAT (PYXIS) 30 ML UDC GT SCH ×2 (08:22→16:55)
[2020-03-17] MEDS: ENOXAPARIN SODIUM 80 MG/0.8 ML DISP.SYRIN SQ SCH (08:23)
[2020-03-17 08:27] LABS: ABG BASE EXCESS 0.5 mmol/L; ABG OXYGEN SATURATION 98.5 % (92.0-98.5); ABG PCO2 34.3 mmHg (35.0-45.0); AaDO2 328.2 mmHg; COHb 0.8 % (0.5-1.5); MetHb 0.3 % (0.0-1.5); O2Hb 97.4 % (94.0-97.0); PEEP,BG 5 cm H2O; SITE, ABG Right Radial; VT, ABG 500 mL
[2020-03-17] MEDS ORDERED: HYDROCORTISONE SOD SUCCINATE 100 MG/2 ML VIAL IV SCH (09:00)
[2020-03-17] MEDS: APIXABAN 2.5 MG TABLET PO SCH ×2 (09:26→16:53)
[2020-03-17] MEDS: GLUCERNA 1.2 1,000 ML BOTTLE NG PRN (16:49)
[2020-03-17] MEDS: ACETAMINOPHEN 650 MG/20.3 ML UDC NG PRN (16:53)
--- NOTE | 2020-03-17 16:58 | NUR ---
FIO2 INCREASED TO 75% DUE TO 90% SPO2. Addendum: 03/17/20 at 1658 by MIKAL ROSENBAUM RT Amended: Links added.
--- NOTE | 2020-03-17 19:35 | NUR ---
RN OPENING NOTES RECEIVED PT IN BED. ORALLY INTUBATED AND SEDATED. ETT 7.5 AND 26 AT THE LIP, AC 24 TV 500 FIO2 75% PEEP OF 5. PT TOLERATING ORDERED VENT SETTINGS WELL, NO SOB OR RESP DISTRESS NOTED. BREATHING IS EVEN AND UNLABORED AT THIS TIME. SATURATING 93%. PT ON CLINICAL LABORATORY MANAGER NSR WITH INVERTED T WAVES NOTED, PT HX AND DR RODRIGES FOLLOWING. IV SITES FLUSHED ASEPTICALLY, LAC SALINE LOCKED AND TRINITY PICC HAS PROPOFOL RUNNING AT 40MCG. OG TUBE PRESENT AUSCULTATED TO CONFIRM PLACEMENT, NO S/S OF ASPIRATION. PT HAS GLUCERNA RUNNING, RESIDUAL OF <15CC NOTED. PT IS AFEBRILE. F/C DRAINING VIA GRAVITY, YELLOW CLEAR FREE OF SEDIMENT. SAFETY MEASURES IN PLACE. HOB ELEVATED. SIDE RAILS UP X2. BED IS LOCKED IN LOWEST POSITION. WILL CONTINUE TO MONITOR.
--- NOTE | 2020-03-17 19:50 | NUR ---
LEFT AC LEAKING, REMOVED IV LINE NO S/S OF BLEEDING NOTED.
[2020-03-17] MEDS: CEFEPIME 2 GM in IV D5W 100 ML IV SCH (20:01)
--- NOTE | 2020-03-17 20:47 | NUR ---
SODIUM NOTED TO BE TRENDING UP, 149 FROM AM LABS. NO ORDERS FOR WATER FLUSHES, NOTIFIED WEIGHER AND CRUSHER ARSH, NO NEW ORDERS AT THIS TIME. WILL CONTINUE TO MONITOR AND F/U.
--- NOTE | 2020-03-17 21:18 | NUR ---
NEW ORDERS FOR WATER FLUSHES NOTED. 200CC/HR Q6H.
[2020-03-18] VITALS (93 sets, daily range): BP systolic 80–133; BP diastolic 44–74
[2020-03-18] MEDS: PROPOFOL 100 ML IV PRN ×8 (00:01→23:20)
[2020-03-18] MEDS: ACETAMINOPHEN 650 MG/20.3 ML UDC NG PRN ×2 (01:04→10:03)
--- NOTE | 2020-03-18 01:20 | NUR ---
TEMP NOTED TO BE 100.0 WITH INCREASING HEART RATE 110-130. ADMINISTERED TYLENOL PRN ORDERED. WILL CONT TO MONITOR.
--- NOTE | 2020-03-18 04:17 | NUR ---
ONE PORT ON TRINITY PICC IS OCCLUDED AND CLAMPED. OTHER IS STILL RUNNING DIPRIVAN, PATENT.
[2020-03-18 04:52] LABS: BASOPHILS % (AUTO) 0.1 % (0.0-2.0); HEMATOCRIT 36 % (39-51); HEMOGLOBIN 11.4 g/dL (13.5-17.5); LYMPHOCYTES # (AUTO) 0.5 /CMM (0.8-4.8); LYMPHOCYTES % (AUTO) 3.5 % (20.0-44.0); MEAN CORPUSCULAR HGB CONC 32 g/dl (31.0-36.0); MEAN CORPUSCULAR VOLUME 90 fL (80-96); MONOCYTES # (AUTO) 0.2 /CMM (0.1-1.30); MONOCYTES % (AUTO) 1.3 % (2.0-12.0); NEUTROPHILS # (AUTO) 13.5 /CMM (1.8-8.9); NEUTROPHILS % (AUTO) 95.1 % (43.0-81.0); PLATELET COUNT (AUTO) 376 /CMM (150-450); RED BLOOD CELL COUNT(AUTO) 3.95 MIL/uL (4.5-6.0); WHITE BLOOD COUNT (AUTO) 14.3 K/uL (4.3-11.0)
--- NOTE | 2020-03-18 05:35 | NUR ---
LEFT FOREARM #20 PLACED GOOD BLOOD RETURN SALINE LOCKED.
[2020-03-18 05:46] LABS: ALANINE AMINOTRANSFERASE 157 U/L (12-78); ALBUMIN 1.5 g/dL (3.4-5.0); ALKALINE PHOSPHATASE 65 U/L (46-116); ASPARTATE AMINOTRANSFERASE 60 U/L (15-37); BILIRUBIN,TOTAL 0.7 mg/dL (0.2-1.0); CARBON DIOXIDE 28 mmol/L (21-32); CHLORIDE 115 mmol/L (98-107); CREATININE 1.7 mg/dL (0.6-1.3); GLUCOSE 136 mg/dL (74-106); PHOSPHORUS 4.4 mg/dL (2.5-4.9); POTASSIUM 4.4 mmol/L (3.5-5.1); SODIUM SERUM 151 mmol/L (136-145); TOTAL PROTEIN, SERUM 6.3 g/dL (6.4-8.2)
[2020-03-18 05:53] LABS: UREA NITROGEN, BLOOD 85 mg/dL (7-18)
--- NOTE | 2020-03-18 06:00 | NUR ---
PT NOTED TO DESAT TO 86-89%, STAT ABG ORDERED. PT BREATHES IN BETWEEN VENT DELIVERY, ABDOMEN EXPANDS UPON INSPIRATION.
--- NOTE | 2020-03-18 06:06 | NUR ---
RT AT BEDSIDE CURRENT O2 SAT IS 92% AT THIS TIME
[2020-03-18 06:26] LABS: ABG BASE EXCESS -0.5 mmol/L; ABG OXYGEN SATURATION 88.7 % (92.0-98.5); ABG PCO2 34.2 mmHg (35.0-45.0); ABG PH 7.447 (7.350-7.450); AaDO2 442.4 mmHg; COHb 0.6 % (0.5-1.5); MetHb 0.3 % (0.0-1.5); O2Hb 87.9 % (94.0-97.0); SITE, ABG Right Radial
--- NOTE | 2020-03-18 08:00 | NUR ---
RN NOTES RECEIVED PT ORALLY INTUBATED AND SEDATED. ETT 7.5 AND 26 AT THE LIP, AC 24 TV 500 FIO2 85% PEEP OF 10 INCREASED. PT TOLERATING EET VENT SETTINGS WELL, NO SOB OR RESP DISTRESS NOTED. BREATHING IS EVEN AND UNLABORED AT THIS TIME. SATURATING 98%. PT ON SYSTEMS CHECKOUT MECHANIC NSR WITH INVERTED T WAVES NOTED, PT HX AND DR RODRIGES FOLLOWING. IV SITES FLUSHED ASEPTICALLY, LAC SALINE LOCKED AND TRINITY PICC HAS PROPOFOL RUNNING AT 45MCG. OG TUBE PRESENT AUSCULTATED TO CONFIRM PLACEMENT, NO RESIDUAL STARTRF GLUCERNA 25 ML/HR INTACT, ADMINISTERED SCHEDULED MEDICATION VIA OGT, SUCTION, KEEP HOB ELEVATED. F/C DRAINING VIA GRAVITY, YELLOW CLEAR FREE OF SEDIMENT. SAFETY MEASURES IN PLACE. SIDE RAILS UP X2. BED IS LOCKED IN LOWEST POSITION. ASSIST TURN AND REPOSTION Q 2 HR. WILL CONTINUE TO MONITOR.
--- NOTE | 2020-03-18 08:15 | NUR ---
peep increased to [address] aponteeg Addendum: 03/18/20 at 1046 by OMER LEWIS RT Amended: Links added.
[2020-03-18] MEDS: HYDROCORTISONE SOD SUCCINATE 100 MG/2 ML VIAL IV SCH (08:58)
[2020-03-18] MEDS: ASPIRIN 81 MG TAB.CHEW NG SCH (08:58)
[2020-03-18] MEDS: CHOLECALCIFEROL 1,000 UNIT TABLET (VIT D3) PO SCH (08:58)
[2020-03-18] MEDS: ZINC SULFATE 220 MG CAPSULE PO SCH (08:58)
[2020-03-18] MEDS: TAMSULOSIN 0.4 MG CAP.SR.24H PO SCH (08:58)
[2020-03-18] MEDS: DEXAMETHASONE SOD PHOSPHATE 10 MG/ML VIAL IV SCH (08:58)
[2020-03-18] MEDS: APIXABAN 2.5 MG TABLET PO SCH ×2 (08:59→17:28)
[2020-03-18] MEDS: PROSOURCE / PROSTAT (PYXIS) 30 ML UDC GT SCH ×2 (09:06→17:29)
[2020-03-18] MEDS: GLUCERNA 1.2 1,000 ML BOTTLE NG PRN (09:07)
[2020-03-18] MEDS: FINASTERIDE (5 MG) 5 MG TABLET PO SCH (09:21)
--- NOTE | 2020-03-18 10:03 | NUR ---
RN NOTES ADMINISTERED TYLENOL 650 MG OGT PER T-100.3, WILL MONITORING.
[2020-03-18] MEDS: FAMOTIDINE/PF INJ 20 MG/2 ML VIAL IV SCH ×2 (10:06→21:20)
[2020-03-18] MEDS: NOREPINEPHRINE 32 MG in IV NS 0.9% 218 ML IV PRN (13:57)
--- NOTE | 2020-03-18 13:57 | NUR ---
rn notes started levophed 0.1 mcg at this time because droping bp 80/50, will monitoring.
[2020-03-18] MEDS ORDERED: REMDESIVIR (CHARGED) 200 MG, *LOADING DOSE 1 EA in IV NS 0.9% 210 ML IV ONE (18:00)
--- NOTE | 2020-03-18 18:30 | NUR ---
RN NOTES PM CARE DONE, SUCTION, PT TOLERATED EET SEETING WELL. NO SOB OR RESP DISTRESS NOTED. BREATHING IS EVEN AND UNLABORED AT THIS TIME. SATURATING 98%. IV SITES FLUSHED ASEPTICALLY, LAC SALINE LOCKED AND TRINITY PICC HAS PROPOFOL RUNNING AT 60 MCG,LEVOPHED 0.06MCG. OG TUBE PRESENT AUSCULTATED TO CONFIRM PLACEMENT, NO RESIDUAL RUNNING GLUCERNA 30 ML/HR INTACT, ADMINISTERED SCHEDULED MEDICATION VIA OGT, SUCTION, KEEP HOB ELEVATED. F/C DRAINING VIA GRAVITY, YELLOW CLEAR FREE OF SEDIMENT. SAFETY MEASURES IN PLACE. SIDE RAILS UP X2. BED IS LOCKED IN LOWEST POSITION. ASSIST TURN AND REPOSTION Q 2 HR. ENDORSED ONCOMING NURSE FOLLOW PLAN OF CARE.
[2020-03-18] MEDS: CEFEPIME 2 GM in IV D5W 100 ML IV SCH (21:20)
--- NOTE | 2020-03-18 23:05 | NUR ---
ENDORSED TO WEB DEVELOPMENT CONSULTANT FOR CONTINUATION OF CARE.
[2020-03-19] VITALS (95 sets, daily range): BP systolic 94–165; BP diastolic 50–93
[2020-03-19] MEDS: PROPOFOL 100 ML IV PRN ×7 (03:14→22:20)
[2020-03-19 04:56] LABS: BASOPHILS % (AUTO) 0.1 % (0.0-2.0); HEMATOCRIT 37 % (39-51); HEMOGLOBIN 11.8 g/dL (13.5-17.5); LYMPHOCYTES # (AUTO) 0.5 /CMM (0.8-4.8); LYMPHOCYTES % (AUTO) 2.8 % (20.0-44.0); MEAN CORPUSCULAR HGB CONC 32 g/dl (31.0-36.0); MEAN CORPUSCULAR VOLUME 91 fL (80-96); MONOCYTES # (AUTO) 0.3 /CMM (0.1-1.30); MONOCYTES % (AUTO) 1.4 % (2.0-12.0); NEUTROPHILS # (AUTO) 18.5 /CMM (1.8-8.9); NEUTROPHILS % (AUTO) 95.7 % (43.0-81.0); PLATELET COUNT (AUTO) 363 /CMM (150-450); RED BLOOD CELL COUNT(AUTO) 4.05 MIL/uL (4.5-6.0); WHITE BLOOD COUNT (AUTO) 19.3 K/uL (4.3-11.0)
[2020-03-19 05:22] LABS: ALANINE AMINOTRANSFERASE 113 U/L (12-78); ALBUMIN 1.5 g/dL (3.4-5.0); ALKALINE PHOSPHATASE 67 U/L (46-116); ASPARTATE AMINOTRANSFERASE 42 U/L (15-37); BILIRUBIN,DIRECT 0.6 mg/dL (0.0-0.2); BILIRUBIN,TOTAL 0.7 mg/dL (0.2-1.0); CALCIUM, SERUM 8.3 mg/dL (8.5-10.1); CARBON DIOXIDE 30 mmol/L (21-32); CHLORIDE 113 mmol/L (98-107); CREATININE 1.5 mg/dL (0.6-1.3); GLUCOSE 149 mg/dL (74-106); POTASSIUM 4.5 mmol/L (3.5-5.1); SODIUM SERUM 142 mmol/L (136-145); TOTAL PROTEIN, SERUM 6.9 g/dL (6.4-8.2)
[2020-03-19 05:25] LABS: UREA NITROGEN, BLOOD 82 mg/dL (7-18)
[2020-03-19 05:30] LABS: ABG BASE EXCESS 2.1 mmol/L; ABG OXYGEN SATURATION 92.9 % (92.0-98.5); ABG PCO2 45.9 mmHg (35.0-45.0); ABG PH 7.395 (7.350-7.450); ABG PO2 68.7 mmHg (75.0-100.0); AaDO2 236.2 mmHg; COHb 1.6 % (0.5-1.5); MetHb 0.3 % (0.0-1.5); O2Hb 91.1 % (94.0-97.0); SITE, ABG Right Radial
[2020-03-19 05:52] LABS: FERRITIN 1864 ng/mL (8-388)
[2020-03-19 06:04] LABS: C-REACTIVE PROTEIN 30.3 mg/dL (0.0-0.9)
--- NOTE | 2020-03-19 08:00 | NUR ---
RT PATIENT REC'D ORALLY INTUBATED ON [facility] VENT WITH ORDERED SETTINGS. ETT IN PROPER POSITION. AIRWAY SECURE AT 28CM AT THE LIP. 4CM ABOVE CATHRYN ON CHEST X-RAY. VENT ALARMS CHECKED + AUDIBLE. MATT NGUYEN AT [facility]. CONT CURRENT PLAN OF RESP CARE. Addendum: 03/19/20 at 1512 by OMER LEWIS RT Amended: Links added.
--- NOTE | 2020-03-19 08:00 | NUR ---
RN NOTES RECEIVED PT ORALLY INTUBATED AND SEDATED. ETT 7.5 AND 26 AT THE LIP, AC 24 TV 500 FIO2 50% PEEP OF 10 INCREASED. PT TOLERATING EET VENT SETTINGS WELL, NO SOB OR RESP DISTRESS NOTED. BREATHING IS EVEN AND UNLABORED AT THIS TIME. SATURATING 98%. IV SITES FLUSHED ASEPTICALLY, [facility] PICC HAS PROPOFOL RUNNING AT 50MCG. OG TUBE PRESENT AUSCULTATED TO CONFIRM PLACEMENT, RESIDUAL 30 CC, RUNNING GLUCERNA 30 ML/HR INTACT, ADMINISTERED SCHEDULED MEDICATION VIA OGT, SUCTION, KEEP HOB ELEVATED. F/C DRAINING VIA GRAVITY, YELLOW CLEAR FREE OF SEDIMENT. SAFETY MEASURES IN PLACE. SIDE RAILS UP X2. BED IS LOCKED IN LOWEST POSITION. ASSIST TURN AND REPOSTION Q 2 HR. WILL CONTINUE TO MONITOR.
[2020-03-19] MEDS: FAMOTIDINE/PF INJ 20 MG/2 ML VIAL IV SCH ×2 (08:33→20:31)
[2020-03-19] MEDS: HYDROCORTISONE SOD SUCCINATE 100 MG/2 ML VIAL IV SCH (08:33)
[2020-03-19] MEDS: DEXAMETHASONE SOD PHOSPHATE 10 MG/ML VIAL IV SCH (08:34)
[2020-03-19] MEDS: ZINC SULFATE 220 MG CAPSULE PO SCH (08:34)
[2020-03-19] MEDS: ASPIRIN 81 MG TAB.CHEW NG SCH (08:34)
[2020-03-19] MEDS: FINASTERIDE (5 MG) 5 MG TABLET PO SCH (08:35)
[2020-03-19] MEDS: TAMSULOSIN 0.4 MG CAP.SR.24H PO SCH (08:35)
[2020-03-19] MEDS: APIXABAN 2.5 MG TABLET PO SCH ×2 (08:36→17:16)
[2020-03-19] MEDS: CHOLECALCIFEROL 1,000 UNIT TABLET (VIT D3) PO SCH (08:36)
[2020-03-19] MEDS: PROSOURCE / PROSTAT (PYXIS) 30 ML UDC GT SCH ×2 (08:40→17:17)
[2020-03-19] MEDS: ACETAMINOPHEN 650 MG/20.3 ML UDC NG PRN (10:45)
--- NOTE | 2020-03-19 10:45 | NUR ---
rn notes administered Tylenol 650 mg via ogt for temperature 99.7.
[2020-03-19] MEDS: GLUCERNA 1.2 1,000 ML BOTTLE NG PRN (13:51)
--- NOTE | 2020-03-19 15:36 | NUR ---
RN NOTES STARTED CONVALESCENT PLASMA AT THIS TIME 50 ML/RH, V/S TAKEN T-99, P-77, R-21, BP-101/55, NO ACUTE RESPIRATORY DISTRESS, PATIENT EET TOLERATING WELL. WILL MONITORING.
--- NOTE | 2020-03-19 15:56 | NUR ---
RN NOTES V/S TAKEN BP 100/56, P-76, R-21, T-99 AXILLARY, PATIENT HAS NO ACUTE RESPIRATORY DISTRESS, INCREASED INFUSION 250 ML/HR WILL MONITORING.
--- NOTE | 2020-03-19 16:55 | NUR ---
RN NOTES INFUSION ENDED AT THIS TIME, PATIENT HAS NO ACUTE RESPIRATORY DISTRESS, T-98, PATIENT TOLERATED INFUSION WELL.
[2020-03-19] MEDS: REMDESIVIR (CHARGED) 100 MG in IV NS 0.9% 100 ML IV SCH (17:19)
--- NOTE | 2020-03-19 18:00 | NUR ---
RN NOTES PM CARE DONE, ADMINISTERED SCHEDULED MEDICATION, ETT TOLERATING SETTINGS WELL, NO SOB OR RESP DISTRESS NOTED. BREATHING IS EVEN AND UNLABORED AT THIS TIME. SATURATING 98%. IV SITES FLUSHED ASEPTICALLY, [facility] PICC HAS PROPOFOL RUNNING AT 70MCG. OG TUBE PRESENT AUSCULTATED TO CONFIRM PLACEMENT, RESIDUAL 30 CC, RUNNING GLUCERNA 30 ML/HR INTACT, ADMINISTERED SCHEDULED MEDICATION VIA OGT, SUCTION, KEEP HOB ELEVATED. F/C DRAINING VIA GRAVITY, YELLOW CLEAR FREE OF SEDIMENT. SAFETY MEASURES IN PLACE. SIDE RAILS UP X2. BED IS LOCKED IN LOWEST POSITION. ASSIST TURN AND REPOSTION Q 2 HR. ENDORSED ONCOMING NURSE FOLLOW PLAN OF CARE.
--- NOTE | 2020-03-19 19:10 | NUR ---
MOUNTAIN OR GLACIER GUIDE OPENING NOTES: Rec'd pt in bed, intubated 7.5/26cm at the lip and sedated. SR on tele monitor. OGT in place w/ Glucerna infusing at 25ml/hr. TRINITY PICC line in place w/ Diprivan infusing at 70mcg. Frank catheter in place draining urine via gravity. Safety measures in place.
[2020-03-19] MEDS: CEFEPIME 2 GM in IV D5W 100 ML IV SCH (20:31)
--- NOTE | 2020-03-19 20:37 | NUR ---
Received patient intubated on Vent AC 24 500 +10 50%. On ETT tube 7.5 27cm @ Lip. No Respiratory distress noted. Suctioned moderate of thick blood-tinged secretions. Ambu bag at bedside. Will continue to monitor. Addendum: 03/19/20 at 2039 by BALJINDER SIMPSON RT Amended: Links added.
--- NOTE | 2020-03-19 23:21 | NUR ---
QUALITY ASSURANCE CONSULTANT NOTE: RT titrated fio2 up to 60%. Will continue to monitor.
[2020-03-20] VITALS (33 sets, daily range): BP systolic 82–132; BP diastolic 48–64
[2020-03-20] MEDS: ACETAMINOPHEN 650 MG/20.3 ML UDC NG PRN ×2 (00:31→08:55)
--- NOTE | 2020-03-20 00:39 | NUR ---
[employer] NOTE: Pt noted w/ temp of 100.1. Tylenol PRN given as ordered. Will continue to monitor.
[2020-03-20] MEDS: PROPOFOL 100 ML IV PRN ×10 (00:52→22:00)
[2020-03-20 04:45] LABS: EOSINOPHILS % (AUTO) 0.6 % (0.0-6.0); HEMATOCRIT 35 % (39-51); LYMPHOCYTES # (AUTO) 0.3 /CMM (0.8-4.8); LYMPHOCYTES % (AUTO) 2.4 % (20.0-44.0); MEAN CORPUSCULAR HGB CONC 32 g/dl (31.0-36.0); MEAN CORPUSCULAR VOLUME 91 fL (80-96); MONOCYTES # (AUTO) 0.2 /CMM (0.1-1.30); MONOCYTES % (AUTO) 1.2 % (2.0-12.0); NEUTROPHILS # (AUTO) 13.7 /CMM (1.8-8.9); NEUTROPHILS % (AUTO) 95.8 % (43.0-81.0); PLATELET COUNT (AUTO) 316 /CMM (150-450); RED BLOOD CELL COUNT(AUTO) 3.83 MIL/uL (4.5-6.0); WHITE BLOOD COUNT (AUTO) 14.3 K/uL (4.3-11.0)
[2020-03-20 04:57] LABS: BILIRUBIN,DIRECT 0.5 mg/dL (0.0-0.2); BILIRUBIN,TOTAL 0.7 mg/dL (0.2-1.0); TOTAL PROTEIN, SERUM 6.5 g/dL (6.4-8.2)
[2020-03-20 05:04] LABS: CALCIUM, SERUM 8.4 mg/dL (8.5-10.1); CARBON DIOXIDE 30 mmol/L (21-32); CHLORIDE 115 mmol/L (98-107); CREATININE 1.5 mg/dL (0.6-1.3); GLUCOSE 128 mg/dL (74-106); MAGNESIUM 3.6 mg/dL (1.8-2.4); PHOSPHORUS 3.6 mg/dL (2.5-4.9); POTASSIUM 4.4 mmol/L (3.5-5.1); SODIUM SERUM 153 mmol/L (136-145)
[2020-03-20 05:08] LABS: UREA NITROGEN, BLOOD 92 mg/dL (7-18)
[2020-03-20 05:22] LABS: ALBUMIN 1.4 g/dL (3.4-5.0)
[2020-03-20 05:45] LABS: ABG BASE EXCESS 2.6 mmol/L; ABG PCO2 40.5 mmHg (35.0-45.0); ABG PH 7.441 (7.350-7.450); ABG PO2 58.4 mmHg (75.0-100.0); AaDO2 324.9 mmHg; MetHb 0.3 % (0.0-1.5); O2Hb 88.8 % (94.0-97.0); SITE, ABG Right Radial; VENT MODE, BG AC 24 500 60% +5
--- NOTE | 2020-03-20 08:13 | NUR ---
PT RECEIVED IN BED ON PRESCCRIBED VENT SETTINGS 7.5/26, AC 24, TV 500, FIO2 60%, PEEP 10, O2 SAT 95%. PT SEDATED ON 80 MCG DIPROVAN. PT HAS GLUCERNA RUNNING AT 20 ML/HR. PT HAS TRINITY PICC LINE, INTACT. ALL SAFETY MEASURES IN PLACE. WILL CONTINUE TO MONITOR CLOSELY
[2020-03-20] MEDS: ZINC SULFATE 220 MG CAPSULE PO SCH (08:44)
[2020-03-20] MEDS: FINASTERIDE (5 MG) 5 MG TABLET PO SCH (08:44)
[2020-03-20] MEDS: DEXAMETHASONE SOD PHOSPHATE 10 MG/ML VIAL IV SCH (08:45)
[2020-03-20] MEDS: TAMSULOSIN 0.4 MG CAP.SR.24H PO SCH (08:45)
[2020-03-20] MEDS: CHOLECALCIFEROL 1,000 UNIT TABLET (VIT D3) PO SCH (08:45)
[2020-03-20] MEDS: ASPIRIN 81 MG TAB.CHEW NG SCH (08:45)
[2020-03-20] MEDS: PANTOPRAZOLE 40 MG/PACK PACK GT SCH (08:45)
[2020-03-20] MEDS: APIXABAN 2.5 MG TABLET PO SCH ×2 (08:46→17:55)
--- NOTE | 2020-03-20 08:54 | NUR ---
RT PEEP INCREASED TO [address] JIMENEZ Addendum: 03/20/20 at 0854 by OMER LEWIS RT Amended: Links added.
[2020-03-20] MEDS: PROSOURCE / PROSTAT (PYXIS) 30 ML UDC GT SCH ×2 (09:10→17:54)
[2020-03-20] MEDS: NOREPINEPHRINE 8 MG in IV NS 0.9% 242 ML IV PRN (17:32)
[2020-03-20] MEDS: REMDESIVIR (CHARGED) 100 MG in IV NS 0.9% 100 ML IV SCH (17:56)
--- NOTE | 2020-03-20 20:00 | NUR ---
Received patient orally intubated to mechanical vent on full vent support.Dx:Acute respiratory Failure Covid Pneumonia.Sedated on Diprivan gtt infusing at 80 mcg via TRINITY PICC LINE and site intact.SR per monitor.VSS.Maintained HOB elevated with OGT feeding infusing.Residual /placement checked.FC to gravity drainage.Turned and repositioned.No acute distress noted.Continue monitoring.
[2020-03-20] MEDS: CEFEPIME 2 GM in IV D5W 100 ML IV SCH (20:30)
--- NOTE | 2020-03-20 21:30 | NUR ---
Patient desat to 88% and Roger MICHELLE titrated FIO2 TO 100%.No acute respiratory distress noted.Continue monitoring.
[2020-03-21] VITALS (27 sets, daily range): BP systolic 86–118; BP diastolic 51–67
--- NOTE | 2020-03-21 | NUR ---
Patient remains sedated.VSS.FIO2 titrated down to 80 % by Roger MICHELLE.Tolerating vent settings well.
[2020-03-21] MEDS: PROPOFOL 100 ML IV PRN ×13 (00:18→23:34)
--- NOTE | 2020-03-21 02:00 | NUR ---
VSS.Bed bath rendered and complete linens changed.Turned and repositioned offloading pressure points.Continue monitoring.
[2020-03-21 03:23] LABS: BASOPHILS # (AUTO) 0.1 /CMM (0.0-0.2); BASOPHILS % (AUTO) 0.6 % (0.0-2.0); EOSINOPHILS % (AUTO) 1.2 % (0.0-6.0); HEMATOCRIT 35 % (39-51); HEMOGLOBIN 11.1 g/dL (13.5-17.5); LYMPHOCYTES # (AUTO) 0.3 /CMM (0.8-4.8); LYMPHOCYTES % (AUTO) 2.8 % (20.0-44.0); MEAN CORPUSCULAR HGB CONC 32 g/dl (31.0-36.0); MEAN CORPUSCULAR VOLUME 91 fL (80-96); MONOCYTES # (AUTO) 0.1 /CMM (0.1-1.30); MONOCYTES % (AUTO) 1.1 % (2.0-12.0); NEUTROPHILS # (AUTO) 11.6 /CMM (1.8-8.9); NEUTROPHILS % (AUTO) 94.3 % (43.0-81.0); PLATELET COUNT (AUTO) 260 /CMM (150-450); RED BLOOD CELL COUNT(AUTO) 3.81 MIL/uL (4.5-6.0); WHITE BLOOD COUNT (AUTO) 12.3 K/uL (4.3-11.0)
[2020-03-21 03:38] LABS: ALANINE AMINOTRANSFERASE 60 U/L (12-78); ALKALINE PHOSPHATASE 58 U/L (46-116); ASPARTATE AMINOTRANSFERASE 28 U/L (15-37); BILIRUBIN,DIRECT 0.5 mg/dL (0.0-0.2); BILIRUBIN,TOTAL 0.7 mg/dL (0.2-1.0); CALCIUM, SERUM 8.3 mg/dL (8.5-10.1); CARBON DIOXIDE 31 mmol/L (21-32); CHLORIDE 117 mmol/L (98-107); CREATININE 1.6 mg/dL (0.6-1.3); GLUCOSE 124 mg/dL (74-106); MAGNESIUM 3.7 mg/dL (1.8-2.4); POTASSIUM 4.6 mmol/L (3.5-5.1); SODIUM SERUM 154 mmol/L (136-145); TOTAL PROTEIN, SERUM 6.3 g/dL (6.4-8.2)
[2020-03-21 03:39] LABS: ALBUMIN 1.3 g/dL (3.4-5.0); UREA NITROGEN, BLOOD 98 mg/dL (7-18)
[2020-03-21] MEDS ORDERED: IV NS 0.9% 250 ML IV ONE (04:30)
[2020-03-21 06:23] LABS: ABG BASE EXCESS -0.3 mmol/L; ABG OXYGEN SATURATION 95.4 % (92.0-98.5); ABG PH 7.338 (7.350-7.450); ABG PO2 83.7 mmHg (75.0-100.0); AaDO2 434.2 mmHg; COHb 1.4 % (0.5-1.5); O2Hb 94.1 % (94.0-97.0); PEEP,BG 12 cm H2O; SITE, ABG Right Radial; VENT MODE, BG VENT AC; VT, ABG 500 mL
--- NOTE | 2020-03-21 07:10 | NUR ---
RN INITIAL NOTES RECEIVED PT INTUBATED, ON VENT. PT SEDATED, ON DIPRIVAN. ON TUBE FEEDING, TOLERATING WELL. JEFFERSON IN PLACE. NO HEMATURIA NOTED. BLE ELEVATED. WILL MONITOR
--- NOTE | 2020-03-21 07:30 | NUR ---
Patient remains sedated on Diprivan gtt at 80 mcg.VS remains stable.Tolerating feeding well. No significant change noted during the shift.All needs met.No acute distress noted.Report given to day shift for KIKE.
[2020-03-21] MEDS: CHOLECALCIFEROL 1,000 UNIT TABLET (VIT D3) PO SCH (08:21)
[2020-03-21] MEDS: FINASTERIDE (5 MG) 5 MG TABLET PO SCH (08:21)
[2020-03-21] MEDS: ASPIRIN 81 MG TAB.CHEW NG SCH (08:21)
[2020-03-21] MEDS: DEXAMETHASONE SOD PHOSPHATE 10 MG/ML VIAL IV SCH (08:21)
[2020-03-21] MEDS: PANTOPRAZOLE 40 MG/PACK PACK GT SCH (08:21)
[2020-03-21] MEDS: ZINC SULFATE 220 MG CAPSULE PO SCH (08:21)
[2020-03-21] MEDS: TAMSULOSIN 0.4 MG CAP.SR.24H PO SCH (08:22)
[2020-03-21] MEDS: PROSOURCE / PROSTAT (PYXIS) 30 ML UDC GT SCH ×2 (08:22→16:41)
[2020-03-21] MEDS: APIXABAN 2.5 MG TABLET PO SCH ×2 (08:27→16:42)
--- NOTE | 2020-03-21 08:32 | NUR ---
FIO2 TITRATE DOWN TO 70% PER DR. JIMENEZ. Addendum: 03/21/20 at 0832 by MIKAL ROSENBAUM RT Amended: Links added.
[2020-03-21] MEDS: GLUCERNA 1.2 1,000 ML BOTTLE NG PRN (13:55)
[2020-03-21] MEDS: ACETAMINOPHEN 650 MG/20.3 ML UDC NG PRN (14:23)
[2020-03-21] MEDS: REMDESIVIR (CHARGED) 100 MG in IV NS 0.9% 100 ML IV SCH (17:37)
--- NOTE | 2020-03-21 19:59 | NUR ---
PT REC'D ORALLY INTUBATED VIA ETT 7.5 SECURED @ 27 CM L[facility] WITH THE SETTINGS OF AC 24, 500,75%,PEEP 12. NO RESPIRATORY DISTRESS NOTED AT THIS TIME. SX DONE . ALARMS ARE SET AND AUDIBLE. VENT PLUGGED INTO RED OUTLET. AMBU BAG@ BEDSIDE. WILL CONTINUE TO MONITOR T/O THE SHIFT.
--- NOTE | 2020-03-21 20:00 | NUR ---
Received patient non verbal orally intubated on full vent support and sedated on Diprivan gtt at 90 mcg infusing via TRINITY PICC LINE and site intact.ST 118.Afebrile.OGT feeding in progress . OGT placement verified.Maintained HOB elevated.FC to gravity drainage.Turned and repositioned. No acute distress noted.
[2020-03-21] MEDS: HYDROCODONE/APAP 5/325MG TABLET NG PRN (20:47)
--- NOTE | 2020-03-21 21:30 | NUR ---
Patient grimacing and tachycardic.Good response from pain medication.
[2020-03-21] MEDS ORDERED: NOREPINEPHRINE 4 MG/4 ML AMPUL IV ONE (23:38)
[2020-03-21] MEDS: NOREPINEPHRINE 8 MG in IV NS 0.9% 242 ML IV PRN (23:48)
--- NOTE | 2020-03-21 23:50 | NUR ---
Patient with low BP Levophed gtt administered per order and will titrate accordingly to keep SBP>90.
[2020-03-22] VITALS (84 sets, daily range): BP systolic 65–163; BP diastolic 42–76
[2020-03-22] MEDS: PROPOFOL 100 ML IV PRN ×8 (01:40→16:08)
[2020-03-22] MEDS: IV NS 0.9% 250 ML IV PRN (03:08)
[2020-03-22 05:00] LABS: BASOPHILS % (AUTO) 0.2 % (0.0-2.0); EOSINOPHILS % (AUTO) 1.9 % (0.0-6.0); HEMATOCRIT 33 % (39-51); HEMOGLOBIN 10.5 g/dL (13.5-17.5); LYMPHOCYTES # (AUTO) 0.5 /CMM (0.8-4.8); LYMPHOCYTES % (AUTO) 4.6 % (20.0-44.0); MEAN CORPUSCULAR HGB CONC 32 g/dl (31.0-36.0); MEAN CORPUSCULAR VOLUME 92 fL (80-96); MONOCYTES # (AUTO) 0.2 /CMM (0.1-1.30); MONOCYTES % (AUTO) 1.9 % (2.0-12.0); NEUTROPHILS # (AUTO) 10.2 /CMM (1.8-8.9); NEUTROPHILS % (AUTO) 91.4 % (43.0-81.0); PLATELET COUNT (AUTO) 258 /CMM (150-450); RED BLOOD CELL COUNT(AUTO) 3.65 MIL/uL (4.5-6.0); WHITE BLOOD COUNT (AUTO) 11.2 K/uL (4.3-11.0)
[2020-03-22 05:14] LABS: ALANINE AMINOTRANSFERASE 47 U/L (12-78); ALKALINE PHOSPHATASE 56 U/L (46-116); ASPARTATE AMINOTRANSFERASE 24 U/L (15-37); BILIRUBIN,DIRECT 0.4 mg/dL (0.0-0.2); BILIRUBIN,TOTAL 0.6 mg/dL (0.2-1.0); CARBON DIOXIDE 27 mmol/L (21-32); CHLORIDE 116 mmol/L (98-107); CREATININE 1.7 mg/dL (0.6-1.3); GLUCOSE 140 mg/dL (74-106); MAGNESIUM 3.7 mg/dL (1.8-2.4); PHOSPHORUS 4.6 mg/dL (2.5-4.9); SODIUM SERUM 154 mmol/L (136-145); UREA NITROGEN, BLOOD 110 mg/dL (7-18)
[2020-03-22 05:15] LABS: ALBUMIN 1.2 g/dL (3.4-5.0)
--- NOTE | 2020-03-22 08:00 | NUR ---
jay christianson Received patient hr 117 bedside telemonitor shows, stop Levophed, assist turn and reposition q 2 hr, rechecked residual 20 ml with fresh blood on it, stop ogt feeding, checked placement, and checked placement. stop scheduled aspirin, and elaquis as ordered, notified Dr Huitron, and Dr Barrera. infusing Diprivan 90mcg/kg/hr at this time patient sedated.will monitoring.
[2020-03-22] MEDS ORDERED: FENTANYL CITRATE IV 1,250 MCG in IV NS 0.9% 225 ML IV PRN (09:00)
[2020-03-22] MEDS: ASPIRIN 81 MG TAB.CHEW NG SCH (09:00)
--- NOTE | 2020-03-22 09:00 | NUR ---
RN NOTES TRIGLYCERIDE LEVEL IS -[address] DE LA TORRE AND GET TO ORDER START VERSED, AND FENTANYL. AFTER START STOP DIPRIVAN DRIP. ALSO NOTIFIED Dr MALCOLM FOR DOSAGE, PER GOLD, WE WILL START VERSED, ANS FENTANYL AFTER FIND OUT GI BLEEDING. AND WILL TITRATE MEDS PER PHARMACY.
[2020-03-22] MEDS: CHOLECALCIFEROL 1,000 UNIT TABLET (VIT D3) PO SCH (09:28)
[2020-03-22] MEDS: PANTOPRAZOLE 40 MG/PACK PACK GT SCH (09:28)
[2020-03-22] MEDS: ZINC SULFATE 220 MG CAPSULE PO SCH (09:28)
[2020-03-22] MEDS: DEXAMETHASONE SOD PHOSPHATE 10 MG/ML VIAL IV SCH (09:29)
[2020-03-22] MEDS: TAMSULOSIN 0.4 MG CAP.SR.24H PO SCH (09:29)
[2020-03-22] MEDS: FINASTERIDE (5 MG) 5 MG TABLET PO SCH (09:29)
[2020-03-22] MEDS: PROSOURCE / PROSTAT (PYXIS) 30 ML UDC GT SCH ×2 (09:32→16:17)
--- NOTE | 2020-03-22 16:21 | NUR ---
RN NOTES GI CONSOLATION ORDERED PER Dr MALCOLM FOR GI BLEEDING.
[2020-03-22] MEDS: IV D5/ 0.9% NACL 1,000 ML IV PRN (16:30)
[2020-03-22] MEDS: HYDROCODONE/APAP 5/325MG TABLET NG PRN (16:35)
--- NOTE | 2020-03-22 17:00 | NUR ---
RN NOTES STARTED VERSED 1 MG. AND FENTANYL 1MCG AT THIS TIME. STOP DIPRIVAN.
[2020-03-22] MEDS: MIDAZOLAM HCL 100 MG in IV NS 0.9% 80 ML IV PRN (17:07)
[2020-03-22] MEDS: FENTANYL CITRAT IV 2,500 MCG in IV NS 0.9% 250 ML IV PRN ×2 (17:13→17:27)
[2020-03-22] MEDS: REMDESIVIR (CHARGED) 100 MG in IV NS 0.9% 100 ML IV SCH (17:14)
[2020-03-22] MEDS: FENTANYL CITRAT IV 2,500 MCG in IV NS 0.9% 200 ML IV PRN (17:51)
--- NOTE | 2020-03-22 18:30 | NUR ---
RN NOTES PATIENT NPO AT THIS TIME, PEEPER EGD PER ZACK, TO ORDER TAKEN AND CARRIED OUT. EGD CONSENT FORM SIGNED PER SON, 1800 OGT FLASH NOT ADMINISTERED BECAUSE OF NPO, V/S STABLE, PATIENT TOLERATED EET VENT SETTING WELL, ASSIST TURN AND REPOSITION Q 2 HR. ENDORSED ONCOMING NURSE FOLLOW PLAN OF CARE.
--- NOTE | 2020-03-22 20:00 | NUR ---
Received patient non verbal orally intubated on full vent support.Sedated on Fentanyl gtt and Versed gtt infusing via TRINITY PICC LINE and site intact.SR.VSS.OGT intact and placement verified remained clamped.Kept NPO for EGD in am with consent signed.IVF infusing.FC to gravity.Will turned and repositioned q 2 hrs.No acute distress noted.
[2020-03-23] VITALS (72 sets, daily range): BP systolic 92–145; BP diastolic 23–72
--- NOTE | 2020-03-23 | NUR ---
Patient VSS.Hygeinic measures done.Turned and repositioned.
[2020-03-23 04:44] LABS: ABG BASE EXCESS 0.3 mmol/L; ABG OXYGEN SATURATION 94.5 % (92.0-98.5); ABG PCO2 47.1 mmHg (35.0-45.0); ABG PH 7.361 (7.350-7.450); ABG PO2 80.6 mmHg (75.0-100.0); AaDO2 367.9 mmHg; COHb 0.4 % (0.5-1.5); MetHb 0.3 % (0.0-1.5); O2Hb 93.8 % (94.0-97.0); PEEP,BG 12 cm H2O; SITE, ABG Right Radial; VT, ABG 500 mL
[2020-03-23 05:32] LABS: BASOPHILS % (AUTO) 0.2 % (0.0-2.0); EOSINOPHILS % (AUTO) 0.8 % (0.0-6.0); HEMATOCRIT 33 % (39-51); HEMOGLOBIN 10.5 g/dL (13.5-17.5); LYMPHOCYTES # (AUTO) 0.4 /CMM (0.8-4.8); LYMPHOCYTES % (AUTO) 4.6 % (20.0-44.0); MEAN CORPUSCULAR HGB CONC 32 g/dl (31.0-36.0); MEAN CORPUSCULAR VOLUME 91 fL (80-96); MONOCYTES # (AUTO) 0.2 /CMM (0.1-1.30); MONOCYTES % (AUTO) 2.9 % (2.0-12.0); NEUTROPHILS # (AUTO) 7.3 /CMM (1.8-8.9); NEUTROPHILS % (AUTO) 91.5 % (43.0-81.0); PLATELET COUNT (AUTO) 207 /CMM (150-450)
[2020-03-23 05:45] LABS: ALANINE AMINOTRANSFERASE 39 U/L (12-78); ALKALINE PHOSPHATASE 51 U/L (46-116); ASPARTATE AMINOTRANSFERASE 27 U/L (15-37); BILIRUBIN,DIRECT 0.5 mg/dL (0.0-0.2); BILIRUBIN,TOTAL 0.7 mg/dL (0.2-1.0); CALCIUM, SERUM 8.1 mg/dL (8.5-10.1); CREATININE 1.4 mg/dL (0.6-1.3); GLUCOSE 150 mg/dL (74-106); MAGNESIUM 3.4 mg/dL (1.8-2.4); PHOSPHORUS 4.7 mg/dL (2.5-4.9); TOTAL PROTEIN, SERUM 6.1 g/dL (6.4-8.2)
[2020-03-23 05:54] LABS: CARBON DIOXIDE 28 mmol/L (21-32); CHLORIDE 119 mmol/L (98-107); POTASSIUM 4.7 mmol/L (3.5-5.1)
[2020-03-23 06:19] LABS: SODIUM SERUM 157 mmol/L (136-145)
[2020-03-23 06:20] LABS: ALBUMIN 1.3 g/dL (3.4-5.0); UREA NITROGEN, BLOOD 95 mg/dL (7-18)
[2020-03-23] MEDS: IV D5/ 0.9% NACL 1,000 ML IV PRN ×2 (06:46→18:15)
--- NOTE | 2020-03-23 07:00 | NUR ---
AM labs resulted with Sodium level 157.Unable to give free water flush via OGT. Maintained on npo status per MD's order.Good urine output.No BM noted. Cont on same sedation gtts and infusing well.All needs met.No acute distress noted. Will endorse to day shift for KIKE.
--- NOTE | 2020-03-23 07:15 | NUR ---
PRIMARY HEALTH ORGANISATION MANAGER NOTES RECEIVED PATIENT SEDATED , RESPONSIVE TO PAIN STIMULI , NOT IN ACUTE DISTRESS , RESPIRATIONS EVEN AND UNLABORED , SPO2O F 98% VIA MECHANICAL VENT SETTINGS ORDERED , ETT 7.5/ IN PLACE , SR 85 ON BEDSIDE MONITOR , OGT PATENT AND INTACT WITH NO RESIDUALS NOTED, NO BLEEDING NOTED , FC DRAINING VIA GRAVITY , BILATERAL SOFT WRIST RESTRAINS IN PLACE , TRINITY PICC LINE WITH FENTANYL @1MCG/KG/MIN , VERSED@ 1MG/HR , D5NS @ 60ML/HR INFUSING WELL , ALL NEEDS ATTENDED , WILL CONTINUE TO MONITOR,
[2020-03-23] MEDS: CHOLECALCIFEROL 1,000 UNIT TABLET (VIT D3) PO SCH (08:10)
[2020-03-23] MEDS: ZINC SULFATE 220 MG CAPSULE PO SCH (08:10)
[2020-03-23] MEDS: PANTOPRAZOLE 40 MG/PACK PACK GT SCH (08:10)
[2020-03-23] MEDS: FINASTERIDE (5 MG) 5 MG TABLET PO SCH (08:10)
[2020-03-23] MEDS: PROSOURCE / PROSTAT (PYXIS) 30 ML UDC GT SCH ×2 (08:10→17:23)
[2020-03-23] MEDS: TAMSULOSIN 0.4 MG CAP.SR.24H PO SCH (08:10)
--- NOTE | 2020-03-23 09:00 | NUR ---
BRIGADIER NOTES UNABLE TO DO SEDATION VACATION , PT UNSTABLE , DR JIMENEZ AWARE .
--- NOTE | 2020-03-23 09:28 | NUR ---
PREPARING BOX TENDER NOTES NOTIFIED DR RODRIGES THAT PT NOTED IT HAVE A HR OF 170'S UNCONTROLLED AFIB ON BEDSIDE MONITOR , PER MD REPEAT K AND MAG , START AMIO BOLUS AND AMIO DRIP PER PROTOCOL . ORDER CARRIED OUT
[2020-03-23] MEDS ORDERED: AMIODARONE 450 MG in IV D5W 250 ML IV PRN (09:30)
[2020-03-23] MEDS ORDERED: AMIODARONE 150 MG in IV D5W 100 ML IV ONE (10:00)
[2020-03-23 11:28] LABS: MAGNESIUM 3.3 mg/dL (1.8-2.4); POTASSIUM 4.6 mmol/L (3.5-5.1)
[2020-03-23 11:32] LABS: CALCIUM, SERUM 8.3 mg/dL (8.5-10.1); CREATININE 1.2 mg/dL (0.6-1.3); POTASSIUM 4.6 mmol/L (3.5-5.1)
--- NOTE | 2020-03-23 11:44 | NUR ---
GUILLOTINE OPERATOR NOTES CARDIOVERSION ORDERED UNDER DR RODRIGES , ANGELIKA AMIODARONE PER DR RODRIGES MONITOR , PADS ATTACHED , AFIB 170'S UNCONTROLLED ON BEDSIDE AND MONITOR , BP STABLE , SEDATED WITH FENTANYL 1MCG/KG/MIN , VERSED @ 1MG/HR , VSS STABLE DR RODRIGES AT BEDSIDE , CARDIOVERTED THE PT , PREVIOUS RYTHM WAS AFIB UNCONTROLLED 170'S , CARDIOVERTED PT WITH 120 J , PT STABLE POST CARDIVERSION , PT CONVERTED TO ST 118-120BPM , NO EKG PER ANGELIKA MORALES AMIO , ORDER CARRIED OUT .
--- NOTE | 2020-03-23 13:37 | NUR ---
LIFE MANAGER NOTES OR AT BEDSIDE FOR EGD , PT STABLE AT THIS TIME , ON FENTANYL @1MCG/KG/MIN , VERSED @ 1MG/HR , S/P CARDIOVERSION DUE TO AFIB UNCONTROLLED 170'S , CURRENT HR OF ST 120'S , AFEBRILE , BP WNL , DISCUSSED WITH ANESTHESIOLOGIST AND GI , DR KESHAV MD AWARE . RT PAGED , CONSENT VERIFIED SIGNED BY THE SON , PRE OP CHECK LIST DONE
[2020-03-23] MEDS: FENTANYL CITRAT IV 2,500 MCG in IV NS 0.9% 200 ML IV PRN (13:47)
[2020-03-23] MEDS: MIDAZOLAM HCL 100 MG in IV NS 0.9% 80 ML IV PRN (13:50)
--- NOTE | 2020-03-23 13:56 | NUR ---
SUPERVISING PRODUCER NOTES PT STABLE S/P EGD , PER DR DELCID,I , OK TO USE NG AND MAY START FEEDING , OK TO START ANTICOAGULANT WITH THE PT , NOTIFIED DR JIMENEZ , DISCUSSED PREVIOUS ANTICOAGULANT WHICH IS ELIQUIS 2.5MG , ASPIRIN 81MG AND LOVENOX 80MG SQ, PER MD CONTINUE ELIQUIS 2.5MG , ORDER CARRIED OUT ,
--- NOTE | 2020-03-23 14:09 | NUR ---
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
[2020-03-23] MEDS: DILTIAZEM HCL 30 MG TABLET PO SCH ×2 (14:25→17:17)
[2020-03-23] MEDS: APIXABAN 2.5 MG TABLET NG SCH ×2 (14:28→21:00)
[2020-03-23] MEDS: GLUCERNA 1.2 1,000 ML BOTTLE NG PRN (17:59)
--- NOTE | 2020-03-23 20:00 | NUR ---
agricultural purchasing agent.. initial assessment, received the pt rest on the bed. orally intubated, sedated with fentanyl and versed. ett 7.5,lip 26,ac 24,tv 500,fio2 50%,peep 12. sat 98%. no acute distress noted, air sampling and monitoring showing nsr. iv rt upper arm picc line. fentanyl and versed. levo and ivf d5ns 60 ml/h. omar soft wrist restraint checked and released. no injury or redness noted. fc patent. ogt feed started, will continue to monitor vitals.
--- NOTE | 2020-03-23 22:06 | NUR ---
agriculturist. around 2133 short run v tach 15 beats. notified frank . ordered mg and bmp. will continue to monitor
[2020-03-23] MEDS: MICAFUNGIN SODIUM 100 MG in IV NS 0.9% 100 ML IV SCH (22:21)
[2020-03-23 22:33] LABS: CALCIUM, SERUM 7.9 mg/dL (8.5-10.1); CREATININE 1.3 mg/dL (0.6-1.3)
[2020-03-23 22:52] LABS: MAGNESIUM 3.1 mg/dL (1.8-2.4)
--- NOTE | 2020-03-23 23:27 | NUR ---
horticultural farm manager. lab result notified frank. no new order
[2020-03-24] VITALS (70 sets, daily range): BP systolic 101–139; BP diastolic 54–72
[2020-03-24] MEDS: DILTIAZEM HCL 30 MG TABLET PO SCH ×2 (00:10→05:32)
[2020-03-24 04:51] LABS: BASOPHILS # (AUTO) 0.1 /CMM (0.0-0.2); BASOPHILS % (AUTO) 0.5 % (0.0-2.0); EOSINOPHILS % (AUTO) 1.2 % (0.0-6.0); HEMATOCRIT 36 % (39-51); HEMOGLOBIN 11.2 g/dL (13.5-17.5); LYMPHOCYTES # (AUTO) 0.6 /CMM (0.8-4.8); LYMPHOCYTES % (AUTO) 5.5 % (20.0-44.0); MEAN CORPUSCULAR HGB CONC 31 g/dl (31.0-36.0); MEAN CORPUSCULAR VOLUME 93 fL (80-96); MONOCYTES # (AUTO) 0.4 /CMM (0.1-1.30); NEUTROPHILS # (AUTO) 10.6 /CMM (1.8-8.9); NEUTROPHILS % (AUTO) 89.8 % (43.0-81.0); PLATELET COUNT (AUTO) 268 /CMM (150-450); RED BLOOD CELL COUNT(AUTO) 3.86 MIL/uL (4.5-6.0); WHITE BLOOD COUNT (AUTO) 11.8 K/uL (4.3-11.0)
[2020-03-24 05:01] LABS: CARBON DIOXIDE 30 mmol/L (21-32); CREATININE 1.2 mg/dL (0.6-1.3); GLUCOSE 140 mg/dL (74-106); MAGNESIUM 3.2 mg/dL (1.8-2.4); PHOSPHORUS 3.5 mg/dL (2.5-4.9); UREA NITROGEN, BLOOD 78 mg/dL (7-18)
[2020-03-24 05:16] LABS: CHLORIDE 126 mmol/L (98-107); SODIUM SERUM 162 mmol/L (136-145)
[2020-03-24 05:29] LABS: ABG BASE EXCESS 1.3 mmol/L; ABG OXYGEN SATURATION 91.5 % (92.0-98.5); ABG PCO2 58.6 mmHg (35.0-45.0); ABG PH 7.307 (7.350-7.450); ABG PO2 69.4 mmHg (75.0-100.0); AaDO2 221.2 mmHg; COHb 0.9 % (0.5-1.5); MetHb 0.1 % (0.0-1.5); O2Hb 90.6 % (94.0-97.0); PEEP,BG 12 cm H2O; SITE, ABG Right Radial; VT, ABG 500 mL
[2020-03-24] MEDS: ACETAMINOPHEN 650 MG/20.3 ML UDC NG PRN ×2 (05:33→22:19)
[2020-03-24] MEDS: IV D5/ 0.9% NACL 1,000 ML IV PRN (05:58)
--- NOTE | 2020-03-24 07:15 | NUR ---
MICROSOFT SOLUTIONS ARCHITECT NOTES RECEIVED PATIENT SEDATED , RESPONSIVE TO PAIN STIMULI , NOT IN ACUTE DISTRESS , RESPIRATIONS EVEN AND UNLABORED , SPO2O F 98% VIA MECHANICAL VENT SETTINGS ORDERED , ETT 7.5/ IN PLACE , ST105 ON BEDSIDE MONITOR , OGT PATENT AND INTACT WITH NO RESIDUALS NOTED, NO BLEEDING NOTED GLUCERNA @ 30ML/HR TOLERATING WELL , , FC DRAINING VIA GRAVITY , BILATERAL SOFT WRIST RESTRAINS IN PLACE , TRINITY PICC LINE WITH FENTANYL @1MCG/KG/MIN , VERSED@ 1MG/HR , D5W @ 60ML/HR INFUSING WELL , ALL NEEDS ATTENDED , WILL CONTINUE TO MONITOR,
[2020-03-24] MEDS: IV D5W 1,000 ML IV SCH ×2 (07:46→17:25)
--- NOTE | 2020-03-24 08:00 | NUR ---
BASKET MENDER NOTES SEEN AND EVALUATED BY DR RODRIGES , DISCUSSED PT HAD A RUNS OF VTACH AT 0530 AND 2134 , RELAYED STRIPS TO MD ,PT BP STABLE , SR 85 ON BEDSIDE MONITOR , DISCUSSED LABS AND ELECTROLYTES , MD AWARE .
[2020-03-24] MEDS: TAMSULOSIN 0.4 MG CAP.SR.24H PO SCH (08:07)
[2020-03-24] MEDS: ZINC SULFATE 220 MG CAPSULE PO SCH (08:07)
[2020-03-24] MEDS: PROSOURCE / PROSTAT (PYXIS) 30 ML UDC GT SCH ×2 (08:07→17:27)
[2020-03-24] MEDS: CHOLECALCIFEROL 1,000 UNIT TABLET (VIT D3) PO SCH (08:07)
[2020-03-24] MEDS: PANTOPRAZOLE 40 MG/PACK PACK GT SCH (08:07)
[2020-03-24] MEDS: FINASTERIDE (5 MG) 5 MG TABLET PO SCH (08:08)
[2020-03-24] MEDS: APIXABAN 2.5 MG TABLET NG SCH ×2 (08:08→21:43)
[2020-03-24] MEDS ORDERED: FLUCONAZOLE (100 MG) 100 MG TABLET NG SCH (09:00)
--- NOTE | 2020-03-24 10:23 | NUR ---
DIRECTOR OF MARKETING AND PROMOTIONS NOTES SEEN AND EVALUATED BY DR SARKAR , DISCUSSED ABG CHEST XRAY LABS , CURRENT VENT SETTINGS , PT ON VERSED 1MG/HR AND FENTANYL 1MCG/KG/MIN , SPO2 99% , FEBRILE LAST NIGHT DISCUSSED TEMP TREND , BP STABLE , SR 85 ON BEDSIDE MONITOR , TEMP OF 98.7 AT THIS TIME , PER MD CHANGE VENT SETTINGS TO AC 24 TV 500 FIO2 TITRATE TO KEEP SPO2 ABOVE 90% AND PEEP OF 10 , AND ORDER BLOOD CULTURE X2 PERIPHERAL AND CENTRAL LINE , URINE CULTURE AND SPUTUM CULTURE , ORDER CARRIED OUT
[2020-03-24] MEDS: METOPROLOL TARTRATE 50 MG TABLET PO SCH ×2 (11:06→17:24)
[2020-03-24] MEDS: MIDAZOLAM HCL 100 MG in IV NS 0.9% 80 ML IV PRN (16:16)
[2020-03-24] MEDS: FENTANYL CITRAT IV 2,500 MCG in IV NS 0.9% 200 ML IV PRN (16:17)
[2020-03-24] MEDS: MICAFUNGIN SODIUM 100 MG in IV NS 0.9% 100 ML IV SCH (21:43)
[2020-03-25] VITALS (72 sets, daily range): BP systolic 89–149; BP diastolic 46–81
[2020-03-25] MEDS: METOPROLOL TARTRATE 50 MG TABLET PO SCH ×5 (00:40→23:46)
[2020-03-25] MEDS: IV D5W 1,000 ML IV SCH ×2 (04:33→15:45)
[2020-03-25 04:52] LABS: CALCIUM, SERUM 7.8 mg/dL (8.5-10.1); CREATININE 1.1 mg/dL (0.6-1.3); MAGNESIUM 2.7 mg/dL (1.8-2.4); PHOSPHORUS 2.5 mg/dL (2.5-4.9); POTASSIUM 4.5 mmol/L (3.5-5.1)
[2020-03-25 04:53] LABS: BASOPHILS % (AUTO) 0.2 % (0.0-2.0); EOSINOPHILS % (AUTO) 2.5 % (0.0-6.0); HEMATOCRIT 32 % (39-51); HEMOGLOBIN 10.2 g/dL (13.5-17.5); LYMPHOCYTES # (AUTO) 0.7 /CMM (0.8-4.8); LYMPHOCYTES % (AUTO) 6.2 % (20.0-44.0); MEAN CORPUSCULAR HGB CONC 32 g/dl (31.0-36.0); MEAN CORPUSCULAR VOLUME 93 fL (80-96); MONOCYTES # (AUTO) 0.3 /CMM (0.1-1.30); MONOCYTES % (AUTO) 2.5 % (2.0-12.0); NEUTROPHILS # (AUTO) 9.3 /CMM (1.8-8.9); NEUTROPHILS % (AUTO) 88.6 % (43.0-81.0); PLATELET COUNT (AUTO) 217 /CMM (150-450); RED BLOOD CELL COUNT(AUTO) 3.49 MIL/uL (4.5-6.0); WHITE BLOOD COUNT (AUTO) 10.5 K/uL (4.3-11.0)
--- NOTE | 2020-03-25 06:31 | NUR ---
Patient remains in no acute distress in bed. patient did not have any significant change in condition during shift. Patient tolerated vent setting well. all needs met, all orders carried out. will endorse care to am RN for continuity of care.
--- NOTE | 2020-03-25 07:05 | NUR ---
MUSIC THERAPIST NOTES RECEIVED PATIENT ON BED INTUBATED AND SEDATED , RESPONSIVE TO PAIN STIMULI ,TOLERATING CURRENT VENT SETTING WELL, O2 SAT WNL, ETT 7.5/[address] , ON TELE SR HR IN 80'S , TOLERAING TF AT 30CC/HR WELL, NO RESIDUAL NOTED NOTED, FC DRAINING VIA GRAVITY , TRINITY PICC LINE WITH FENTANYL @1MCG/KG/MIN , VERSED@ 1MG/HR , D5W @ 60ML/HR INFUSING WELL , ALL NEEDS ATTENDED , SR UP x3, WILL CONTINUE TO MONITOR CLOSELY.
[2020-03-25] MEDS: PROSOURCE / PROSTAT (PYXIS) 30 ML UDC GT SCH ×2 (08:09→17:28)
[2020-03-25] MEDS: ZINC SULFATE 220 MG CAPSULE PO SCH (08:10)
[2020-03-25] MEDS: PANTOPRAZOLE 40 MG/PACK PACK GT SCH (08:10)
[2020-03-25] MEDS: CHOLECALCIFEROL 1,000 UNIT TABLET (VIT D3) PO SCH (08:11)
[2020-03-25] MEDS: TAMSULOSIN 0.4 MG CAP.SR.24H PO SCH (08:11)
[2020-03-25] MEDS: FINASTERIDE (5 MG) 5 MG TABLET PO SCH (08:11)
[2020-03-25] MEDS: APIXABAN 2.5 MG TABLET NG SCH ×2 (08:12→20:11)
[2020-03-25] MEDS: ACETAMINOPHEN 650 MG/20.3 ML UDC NG PRN (08:17)
[2020-03-25 08:22] LABS: ABG BASE EXCESS 0.3 mmol/L; ABG PCO2 43.3 mmHg (35.0-45.0); ABG PH 7.387 (7.350-7.450); ABG PO2 55.6 mmHg (75.0-100.0); AaDO2 252.2 mmHg; COHb 0.9 % (0.5-1.5); MetHb 0.3 % (0.0-1.5); O2Hb 86.9 % (94.0-97.0); PEEP,BG 8 cm H2O; SITE, ABG Right Radial; VT, ABG 500 mL
[2020-03-25] MEDS: FENTANYL CITRAT IV 2,500 MCG in IV NS 0.9% 200 ML IV PRN (16:56)
[2020-03-25] MEDS: MIDAZOLAM HCL 100 MG in IV NS 0.9% 80 ML IV PRN (16:56)
[2020-03-25] MEDS: GLUCERNA 1.2 1,000 ML BOTTLE NG PRN (17:28)
--- NOTE | 2020-03-25 18:00 | NUR ---
RN NOTES NO SIGNIFICANT CHANGES NOTED ON THIS SHIFT, WILL ENDORSE TO BROOM BUILDER NURSE FOR CONTINUITY OF CARE .
--- NOTE | 2020-03-25 19:39 | NUR ---
school curriculum developer. initial assessment. received the pt rest on the bed. orally intubated. sedated with versed and fentanyl. ivf d5w 100ml/h. ett7.5lip 26,ac 24,tv 500,fio2 50%,peep 8. sat 98%.guyline operator showing nsr. iv rt upper arm picc line fc patent. ogt feeding tolerated well. will continue to monitor vitals.
[2020-03-25] MEDS ORDERED: PIPERACILLIN /TAZOBACTAM 3.375 G in IV D5W 50 ML IV SCH (21:00)
[2020-03-25] MEDS ORDERED: PIPERACILLIN /TAZOBACTAM 3.375 G VIAL IV ONE (21:01)
[2020-03-25] MEDS: MICAFUNGIN SODIUM 100 MG in IV NS 0.9% 100 ML IV SCH (21:02)
[2020-03-25] MEDS: ZOSYN IVPB 3.375 G in IV D5W 50ml IV SCH (21:03)
[2020-03-26] VITALS (69 sets, daily range): BP systolic 93–150; BP diastolic 47–76
--- NOTE | 2020-03-26 00:48 | NUR ---
PLANTING MATERIAL REMOVER. REMAINING SAME VENT SETTING TOLERATED WELL. SAT 98%. NO ACUTE DISTRESS NOTED. TURN AND REPOSITION Q2H. WILL CONTINUE TO MONITOR VITALS
[2020-03-26] MEDS: IV D5W 1,000 ML IV SCH ×3 (01:16→20:19)
[2020-03-26] MEDS: ACETAMINOPHEN 650 MG/20.3 ML UDC NG PRN (02:23)
--- NOTE | 2020-03-26 04:15 | NUR ---
METAL CUTTER. AM CARE GIVEN. LINEN CHANGED. REMAINING SAME VENT SETTING TOLERATED WELL. SAT 98%. CONE CLASSIFIER TENDER SHOWING NSR, HOB ELEVATED.
[2020-03-26] MEDS ORDERED: PIPERACILLIN /TAZOBACTAM 3.375 G VIAL IV ONE (04:51)
[2020-03-26] MEDS: ZOSYN IVPB 3.375 G in IV D5W 50ml IV SCH (04:56)
[2020-03-26] MEDS: METOPROLOL TARTRATE 50 MG TABLET PO SCH ×3 (05:46→17:03)
[2020-03-26 07:56] LABS: BASOPHILS # (AUTO) 0.1 /CMM (0.0-0.2); BASOPHILS % (AUTO) 0.7 % (0.0-2.0); EOSINOPHILS % (AUTO) 0.8 % (0.0-6.0); HEMATOCRIT 32 % (39-51); LYMPHOCYTES # (AUTO) 0.5 /CMM (0.8-4.8); LYMPHOCYTES % (AUTO) 4.4 % (20.0-44.0); MEAN CORPUSCULAR HGB CONC 31 g/dl (31.0-36.0); MEAN CORPUSCULAR VOLUME 92 fL (80-96); MONOCYTES # (AUTO) 0.2 /CMM (0.1-1.30); MONOCYTES % (AUTO) 1.5 % (2.0-12.0); NEUTROPHILS # (AUTO) 11.1 /CMM (1.8-8.9); NEUTROPHILS % (AUTO) 92.6 % (43.0-81.0); PLATELET COUNT (AUTO) 200 /CMM (150-450); RED BLOOD CELL COUNT(AUTO) 3.47 MIL/uL (4.5-6.0)
[2020-03-26 08:18] LABS: CALCIUM, SERUM 7.8 mg/dL (8.5-10.1); MAGNESIUM 2.5 mg/dL (1.8-2.4); PHOSPHORUS 3.2 mg/dL (2.5-4.9); POTASSIUM 4.6 mmol/L (3.5-5.1)
[2020-03-26] MEDS: TAMSULOSIN 0.4 MG CAP.SR.24H PO SCH (08:32)
[2020-03-26] MEDS: CHOLECALCIFEROL 1,000 UNIT TABLET (VIT D3) PO SCH (08:32)
[2020-03-26] MEDS: ZINC SULFATE 220 MG CAPSULE PO SCH (08:32)
[2020-03-26] MEDS: PANTOPRAZOLE 40 MG/PACK PACK GT SCH (08:32)
[2020-03-26] MEDS: FINASTERIDE (5 MG) 5 MG TABLET PO SCH (08:32)
[2020-03-26] MEDS: APIXABAN 2.5 MG TABLET NG SCH ×2 (08:33→20:31)
[2020-03-26] MEDS: PROSOURCE / PROSTAT (PYXIS) 30 ML UDC GT SCH ×2 (08:34→17:03)
[2020-03-26] MEDS: ZOSYN IVPB 4.5 G in IV D5W 50ml IV SCH ×2 (11:35→17:03)
[2020-03-26] MEDS: LACTULOSE 10 G/15 ML UDC (PYXIS) PO PRN (14:12)
[2020-03-26] MEDS: MIDAZOLAM HCL 100 MG in IV NS 0.9% 80 ML IV PRN (16:26)
[2020-03-26] MEDS: FENTANYL CITRAT IV 2,500 MCG in IV NS 0.9% 200 ML IV PRN (16:27)
[2020-03-26] MEDS: GLUCERNA 1.2 1,000 ML BOTTLE NG PRN (16:51)
--- NOTE | 2020-03-26 18:00 | NUR ---
RN NOTES PT REMAINS INTUBATED AND SEDATED, TOLERATING VENT SETTING WELL, NO SIGNIFCANT CHANGES NOTED ON THIS SHIFT , WILL ENDORSE TO PALLET STONE POSITIONER NURSE FOR CONTINUITY OF CARE
--- NOTE | 2020-03-26 20:00 | NUR ---
DENTAL EQUIPMENT MECHANIC NOTES GASTRIC RESIDUAL APPROXIMATELY 240ML OF STRAW COLORED FLUID MIXED WITH TUBE FEEDING. TUBE FEEDING PLACED ON HOLD. WILL MONITOR
[2020-03-26] MEDS: MICAFUNGIN SODIUM 100 MG in IV NS 0.9% 100 ML IV SCH (21:45)
[2020-03-27] VITALS (37 sets, daily range): BP systolic 93–143; BP diastolic 51–66
--- NOTE | 2020-03-27 | NUR ---
FRUIT THINNER NOTES GASTRIC RESIDUAL NOW INCREASED TO 450ML. ANAIS ENGLISH DNP NOTIFIED, WITH ORDER TO CONTINUE TO HOLD TUBE FEEDING ASND RECHECK IN 4 HOURS. PER ANAIS MANUFACTURER'S REPRESENTATIVE, HOLD FREE WATER FLUSH WELL. WILL FOLLOW ORDERS ANC CONTINUE TO MONITOR
[2020-03-27] MEDS: ZOSYN IVPB 4.5 G in IV D5W 50ml IV SCH ×5 (00:37→23:42)
[2020-03-27 04:37] LABS: HEMATOCRIT 29 % (39-51); HEMOGLOBIN 9.5 g/dL (13.5-17.5); MEAN CORPUSCULAR HGB CONC 32 g/dl (31.0-36.0); MEAN CORPUSCULAR VOLUME 91 fL (80-96); WHITE BLOOD COUNT (AUTO) 9.6 K/uL (4.3-11.0)
[2020-03-27 04:38] LABS: BASOPHILS % (AUTO) 0.3 % (0.0-2.0); EOSINOPHILS % (AUTO) 2.2 % (0.0-6.0); LYMPHOCYTES # (AUTO) 0.6 /CMM (0.8-4.8); LYMPHOCYTES % (AUTO) 6.5 % (20.0-44.0); MONOCYTES # (AUTO) 0.2 /CMM (0.1-1.30); NEUTROPHILS # (AUTO) 8.5 /CMM (1.8-8.9); PLATELET COUNT (AUTO) 193 /CMM (150-450)
[2020-03-27 04:46] LABS: CALCIUM, SERUM 7.5 mg/dL (8.5-10.1); CREATININE 0.9 mg/dL (0.6-1.3); MAGNESIUM 2.4 mg/dL (1.8-2.4); PHOSPHORUS 3.2 mg/dL (2.5-4.9); POTASSIUM 4.8 mmol/L (3.5-5.1)
[2020-03-27 05:54] LABS: ABG BASE EXCESS 3.2 mmol/L; ABG OXYGEN SATURATION 90.9 % (92.0-98.5); ABG PCO2 45.4 mmHg (35.0-45.0); ABG PH 7.412 (7.350-7.450); AaDO2 244.4 mmHg; COHb 0.8 % (0.5-1.5); MetHb 0.3 % (0.0-1.5); O2Hb 89.9 % (94.0-97.0); PEEP,BG 8 cm H2O; SITE, ABG Right Radial; VENT MODE, BG AC 24 500 50% +8; VT, ABG 500 mL
[2020-03-27] MEDS: LACTULOSE 10 G/15 ML UDC (PYXIS) PO PRN (06:07)
[2020-03-27] MEDS: METOPROLOL TARTRATE 50 MG TABLET PO SCH ×5 (06:09→23:31)
[2020-03-27] MEDS: IV D5W 1,000 ML IV SCH ×2 (06:14→15:43)
--- NOTE | 2020-03-27 07:10 | NUR ---
RN INITIAL NOTES RECEIVED PT INTUBATED, ON VENT. NO RESPIRATORY DISTRESS NOTED. NI SIGNS OF PAIN NOTED. ON VERSED AND FENTANYL DRIP. IVF INFUSING. OGT CLAMPED. JEFFERSON IN PLACE. WILL MONITOR
[2020-03-27] MEDS: CHOLECALCIFEROL 1,000 UNIT TABLET (VIT D3) PO SCH (08:25)
[2020-03-27] MEDS: PANTOPRAZOLE 40 MG/PACK PACK GT SCH (08:25)
[2020-03-27] MEDS: FINASTERIDE (5 MG) 5 MG TABLET PO SCH (08:25)
[2020-03-27] MEDS: TAMSULOSIN 0.4 MG CAP.SR.24H PO SCH (08:25)
[2020-03-27] MEDS: ZINC SULFATE 220 MG CAPSULE PO SCH (08:26)
[2020-03-27] MEDS: PROSOURCE / PROSTAT (PYXIS) 30 ML UDC GT SCH ×2 (09:13→17:10)
[2020-03-27] MEDS: APIXABAN 2.5 MG TABLET NG SCH ×2 (09:14→20:21)
[2020-03-27] MEDS ORDERED: SORBITOL SOLUTION 30 ML PO ONE (13:30)
[2020-03-27] MEDS: MIDAZOLAM HCL 100 MG in IV NS 0.9% 80 ML IV PRN (15:49)
[2020-03-27] MEDS: FENTANYL CITRAT IV 2,500 MCG in IV NS 0.9% 200 ML IV PRN (15:55)
--- NOTE | 2020-03-27 18:48 | NUR ---
RN CLOSING NOTES NO SIGNIFICANT CHANGE NOTED. TUBE FEEDING STILL ON HOLD. LATEST GASTRIC RESIDUAL 160ML. IVF INFUSING. REMAINS ON FENTANYL AND VERSED DRIP. KEPT CLEAN AND DRY. BLE ELEVATED. WILL ENDORSE FOR CONTINUITY OF CARE.
[2020-03-27] MEDS: MICAFUNGIN SODIUM 100 MG in IV NS 0.9% 100 ML IV SCH (21:04)
[2020-03-27] MEDS: ACETAMINOPHEN 650 MG/20.3 ML UDC NG PRN (23:31)
[2020-03-28] VITALS (47 sets, daily range): BP systolic 91–152; BP diastolic 43–87
--- NOTE | 2020-03-28 04:00 | NUR ---
CONVENTIONAL MORTGAGE UNDERWRITER NOTES PATIENT S/P MANUAL DISIMPACTION, NOTED WITH LARGE AMOUNT OF HARD, DARK BROWN STOOL.
[2020-03-28 04:46] LABS: BASOPHILS % (AUTO) 0.3 % (0.0-2.0); EOSINOPHILS % (AUTO) 2.3 % (0.0-6.0); HEMATOCRIT 26 % (39-51); HEMOGLOBIN 8.3 g/dL (13.5-17.5); LYMPHOCYTES # (AUTO) 0.6 /CMM (0.8-4.8); LYMPHOCYTES % (AUTO) 6.4 % (20.0-44.0); MEAN CORPUSCULAR HGB CONC 32 g/dl (31.0-36.0); MEAN CORPUSCULAR VOLUME 91 fL (80-96); MONOCYTES # (AUTO) 0.2 /CMM (0.1-1.30); NEUTROPHILS # (AUTO) 7.9 /CMM (1.8-8.9); PLATELET COUNT (AUTO) 186 /CMM (150-450); RED BLOOD CELL COUNT(AUTO) 2.84 MIL/uL (4.5-6.0); WHITE BLOOD COUNT (AUTO) 8.8 K/uL (4.3-11.0)
[2020-03-28 04:49] LABS: CALCIUM, SERUM 7.3 mg/dL (8.5-10.1); MAGNESIUM 2.4 mg/dL (1.8-2.4); PHOSPHORUS 3.3 mg/dL (2.5-4.9); POTASSIUM 4.6 mmol/L (3.5-5.1)
[2020-03-28 05:22] LABS: ABG BASE EXCESS 2.4 mmol/L; ABG OXYGEN SATURATION 92.2 % (92.0-98.5); ABG PCO2 45.2 mmHg (35.0-45.0); ABG PH 7.403 (7.350-7.450); ABG PO2 67.4 mmHg (75.0-100.0); AaDO2 238.3 mmHg; COHb 1.1 % (0.5-1.5); O2Hb 91.2 % (94.0-97.0); PEEP,BG 8 cm H2O; SITE, ABG Right Radial; VENT MODE, BG AC 24 500 50% +8; VT, ABG 500 mL
[2020-03-28] MEDS: IV D5W 1,000 ML IV SCH (06:00)
--- NOTE | 2020-03-28 06:30 | NUR ---
CREW TRAINER NOTES PATIENT REMAINS ORALLY INTUBATED ON MECHANICAL VENTILATION, FIO2 50%, PEEP +8, TOLERATED VENT SETTINGS WELL THROUGHOUT SHIFT.. GASTRIC RESIDUAL REMAINS ELEVATED, CURRENTLY 75 ML OF GREEN-BILIOUS FLUID. REMAINS SEDATED ON FENTANYL DRIP @ 1MCG/KG/HR OR 9 ML /HR, AND VERSED DRIP @ 1MG/HR
[2020-03-28] MEDS: METOPROLOL TARTRATE 50 MG TABLET PO SCH ×3 (07:00→18:00)
[2020-03-28] MEDS: ZOSYN IVPB 4.5 G in IV D5W 50ml IV SCH ×4 (07:01→23:51)
[2020-03-28] MEDS: FINASTERIDE (5 MG) 5 MG TABLET PO SCH (09:39)
[2020-03-28] MEDS: ZINC SULFATE 220 MG CAPSULE PO SCH (09:39)
[2020-03-28] MEDS: PANTOPRAZOLE 40 MG/PACK PACK GT SCH (09:39)
[2020-03-28] MEDS: CHOLECALCIFEROL 1,000 UNIT TABLET (VIT D3) PO SCH (09:39)
[2020-03-28] MEDS: TAMSULOSIN 0.4 MG CAP.SR.24H PO SCH (09:39)
[2020-03-28] MEDS: PROSOURCE / PROSTAT (PYXIS) 30 ML UDC GT SCH ×2 (09:39→17:58)
[2020-03-28] MEDS: APIXABAN 2.5 MG TABLET NG SCH ×2 (09:40→21:00)
[2020-03-28] MEDS: GLUCERNA 1.2 1,000 ML BOTTLE NG PRN (11:51)
[2020-03-28] MEDS: MIDAZOLAM HCL 100 MG in IV NS 0.9% 80 ML IV PRN (16:18)
[2020-03-28] MEDS: FENTANYL CITRAT IV 2,500 MCG in IV NS 0.9% 200 ML IV PRN (16:19)
--- NOTE | 2020-03-28 20:10 | NUR ---
ICU/SHELLFISH DREDGE OPERATOR STOOL COLLECTED FOR OCCULT. PT'S POSITIONED WAS CHANGED. PT AT THIS TIME GIVEN ORAL CARE. WILL CONTINUE TO MONITOR THIS PT.
--- NOTE | 2020-03-28 20:30 | NUR ---
ICU/FENCE SETTER TYLENOL WAS GIVEN FOR FLACC SCALE OF 6/10. WILL CONTINUE TO MONITOR THIS PT.
--- NOTE | 2020-03-28 20:50 | NUR ---
ICU/RIPRAP PLACING SUPERVISOR PT'S DAUGHTER ASKED THAT THE ETT TUBE BE REPOSTIONED SO THAT THERE IS NO SKIN BREAKDOWN TO THE LIP AND FACIAL AREA. THIS WAS DONE BY THE NIGHT RT. WILL CONTINUE TO MONITOR THIS PT.
[2020-03-28] MEDS: ACETAMINOPHEN 650 MG/20.3 ML UDC NG PRN (20:59)
[2020-03-28] MEDS: DOCUSATE SODIUM LIQ 100 MG/10 ML UDC NG SCH (21:01)
[2020-03-28] MEDS: MICAFUNGIN SODIUM 100 MG in IV NS 0.9% 100 ML IV SCH (21:18)
--- NOTE | 2020-03-28 22:30 | NUR ---
ICU/HEADER BOSS PT'S RESIDUAL FOR THE FEEDING IS 7ML/HR. THE FEEDING WAS INCREASED TO 15ML FROM 10ML. THE GOAL IS 30ML. WILL CONTINUE TO MONITOR HIS PT.
[2020-03-29] VITALS (55 sets, daily range): BP systolic 80–181; BP diastolic 42–95
[2020-03-29] MEDS: METOPROLOL TARTRATE 50 MG TABLET PO SCH ×4 (01:41→17:05)
[2020-03-29 02:04] LABS: OCCULT BLOOD STOOL POSITIVE (NEGATIVE)
--- NOTE | 2020-03-29 02:30 | NUR ---
ICU/TERRAZZO WORKER PT IS POSITIVE STOOL FOR OCCULT. NOTIFIED CHARGE NURSE AND ALSO FAMILY, DAUGHTER VIDYA.
[2020-03-29 04:35] LABS: BASOPHILS % (AUTO) 0.1 % (0.0-2.0); HEMATOCRIT 25 % (39-51); HEMOGLOBIN 8.2 g/dL (13.5-17.5); LYMPHOCYTES # (AUTO) 0.3 /CMM (0.8-4.8); LYMPHOCYTES % (AUTO) 4.1 % (20.0-44.0); MEAN CORPUSCULAR HGB CONC 33 g/dl (31.0-36.0); MEAN CORPUSCULAR VOLUME 90 fL (80-96); MONOCYTES # (AUTO) 0.2 /CMM (0.1-1.30); MONOCYTES % (AUTO) 2.9 % (2.0-12.0); NEUTROPHILS # (AUTO) 7.2 /CMM (1.8-8.9); NEUTROPHILS % (AUTO) 90.9 % (43.0-81.0); PLATELET COUNT (AUTO) 177 /CMM (150-450); RED BLOOD CELL COUNT(AUTO) 2.77 MIL/uL (4.5-6.0); WHITE BLOOD COUNT (AUTO) 7.9 K/uL (4.3-11.0)
[2020-03-29 04:46] LABS: CALCIUM, SERUM 7.4 mg/dL (8.5-10.1); CREATININE 0.9 mg/dL (0.6-1.3); MAGNESIUM 2.5 mg/dL (1.8-2.4); PHOSPHORUS 3.6 mg/dL (2.5-4.9); POTASSIUM 4.3 mmol/L (3.5-5.1)
[2020-03-29] MEDS: ZOSYN IVPB 4.5 G in IV D5W 50ml IV SCH ×3 (05:52→17:02)
--- NOTE | 2020-03-29 07:00 | NUR ---
RN INITIAL NOTES RECEIVED PT INTUBATED, ON VENT. TOLERATING CURRENT VENT SETTING WEL, O2 SAT WNL, NO RESPIRATORY DISTRESS NOTED. NI SIGNS OF PAIN NOTED. ON VERSED AND FENTANYL DRIP. IVF INFUSING. OGT CLAMPED. JEFFERSON IN PLACE. WILL MONITOR
[2020-03-29] MEDS: CHOLECALCIFEROL 1,000 UNIT TABLET (VIT D3) PO SCH (09:00)
[2020-03-29] MEDS: TAMSULOSIN 0.4 MG CAP.SR.24H PO SCH (09:00)
[2020-03-29] MEDS: DOCUSATE SODIUM LIQ 100 MG/10 ML UDC NG SCH ×2 (09:00→21:36)
[2020-03-29] MEDS: PROSOURCE / PROSTAT (PYXIS) 30 ML UDC GT SCH ×2 (09:00→17:02)
[2020-03-29] MEDS ORDERED: PANTOPRAZOLE 40 MG VIAL IV SCH (09:00)
[2020-03-29] MEDS: FINASTERIDE (5 MG) 5 MG TABLET PO SCH (09:00)
[2020-03-29] MEDS: ZINC SULFATE 220 MG CAPSULE PO SCH (09:01)
[2020-03-29] MEDS: IV D5/ 0.9% NACL 1,000 ML IV PRN (14:04)
--- NOTE | 2020-03-29 15:00 | NUR ---
RN NOTES PT BACK ON SEDATION PER DR JIMENEZ ORDER, PT DOES NOT FOLLOW COMMAND , STILL SEDATED , MD AWARE, CT OF THE HEAD ORDERED .
[2020-03-29] MEDS ORDERED: ALTEPLASE CATHFLO 2 MG/VIAL XX ONE (15:30)
[2020-03-29] MEDS: GLUCERNA 1.2 1,000 ML BOTTLE NG PRN (17:52)
[2020-03-29] MEDS: FENTANYL CITRAT IV 2,500 MCG in IV NS 0.9% 200 ML IV PRN (17:55)
[2020-03-29] MEDS: MIDAZOLAM HCL 100 MG in IV NS 0.9% 80 ML IV PRN (17:55)
--- NOTE | 2020-03-29 18:00 | NUR ---
RN NOTES PT REMANINS INTUBATED AND SEDATED, ON SIGNIFICANT CHANGES NOTED ON THIS SHIFT.
--- NOTE | 2020-03-29 19:00 | NUR ---
Received patient orally intubated to the ventilator on AC mode,sedated on Fentanyl drip and Versed drip.RASS -4 no cough reflex when suctioned, no movement noted ,no response even to deep pain stimuli. + generalized edema.With tube feeding via OGT,Aspiration Precaution observed,comfort care done.On Contact/Droplet isolation .
--- NOTE | 2020-03-29 21:20 | NUR ---
Noted to have episode of bradycardia HR in the 60's , while patient was placed on flat position while turning patient.Also observed to desaturate in the low 80's when turned to the left.Turned patient back to the right side.
[2020-03-29] MEDS: PANTOPRAZOLE 40 MG VIAL IV SCH (21:35)
[2020-03-29] MEDS: MICAFUNGIN SODIUM 100 MG in IV NS 0.9% 100 ML IV SCH (21:36)
--- NOTE | 2020-03-29 22:30 | NUR ---
BP 85/44, HR=88 .closely monitor and will repeat.
[2020-03-29] MEDS: IV NS 0.9% 250 ML IV PRN (22:33)
[2020-03-29] MEDS ORDERED: NOREPINEPHRINE 8MG/250ML RTU 250 ML IV ONE (22:40)
--- NOTE | 2020-03-29 22:40 | NUR ---
bP still in the 80's systolic. 80/43, HR=87. Will start on Levophed drip.
--- NOTE | 2020-03-29 22:50 | NUR ---
Now on Levophed drip, @ 0.1 mcg/kg/min. ,noted to be suddenly progressively became bradycardic 50's, then 40's ,30's . Increased Levophed drip .
[2020-03-29] MEDS: NOREPINEPHRINE 8 MG in IV NS 0.9% 242 ML IV PRN (22:56)
--- NOTE | 2020-03-29 23:00 | NUR ---
BP improved right away as soon as Levophed drip started, and Heart rate slowly back uo 70's- 80's.Will titrate Levophed as needed,will closely monitor.
--- NOTE | 2020-03-29 23:30 | NUR ---
Noted to be breathing slightly llabored but saturation 94 %,will increased Versed drip.
[2020-03-30] VITALS (70 sets, daily range): BP systolic 96–152; BP diastolic 53–79
[2020-03-30] MEDS: ZOSYN IVPB 4.5 G in IV D5W 50ml IV SCH ×4 (00:06→17:12)
--- NOTE | 2020-03-30 00:30 | NUR ---
Had another brief episode of bradycardia in the 40's while RT quickly changed HME . FIO2 increased to 60 %.
--- NOTE | 2020-03-30 02:00 | NUR ---
V/S stable ,still on Levophed drip @ 0.03 mcg/kg/min.,HR in the 80's.
--- NOTE | 2020-03-30 04:00 | NUR ---
Had another very brief bradycardia episode in the 40's while Levophed drip and all IV's were on hold ( for blood drawing from line),but slowly back up in the 70's.BP remained stable.
[2020-03-30 05:49] LABS: CALCIUM, SERUM 7.6 mg/dL (8.5-10.1); MAGNESIUM 2.4 mg/dL (1.8-2.4); PHOSPHORUS 3.7 mg/dL (2.5-4.9)
[2020-03-30] MEDS: METOPROLOL TARTRATE 50 MG TABLET PO SCH ×5 (06:00→23:59)
--- NOTE | 2020-03-30 06:00 | NUR ---
Levophed off. AM care done,tolerated quick turning and flat position but saturation drop in the low 90's , but easily improved after putting HOB up.
[2020-03-30] MEDS: IV D5/ 0.9% NACL 1,000 ML IV PRN (06:28)
[2020-03-30 08:40] LABS: BASOPHILS % (AUTO) 0.5 % (0.0-2.0); EOSINOPHILS % (AUTO) 4.6 % (0.0-6.0); HEMATOCRIT 26 % (39-51); HEMOGLOBIN 8.2 g/dL (13.5-17.5); LYMPHOCYTES # (AUTO) 0.5 /CMM (0.8-4.8); LYMPHOCYTES % (AUTO) 6.7 % (20.0-44.0); MEAN CORPUSCULAR HGB CONC 32 g/dl (31.0-36.0); MEAN CORPUSCULAR VOLUME 92 fL (80-96); MONOCYTES # (AUTO) 0.3 /CMM (0.1-1.30); MONOCYTES % (AUTO) 3.4 % (2.0-12.0); NEUTROPHILS # (AUTO) 6.4 /CMM (1.8-8.9); NEUTROPHILS % (AUTO) 84.8 % (43.0-81.0); PLATELET COUNT (AUTO) 191 /CMM (150-450); RED BLOOD CELL COUNT(AUTO) 2.79 MIL/uL (4.5-6.0); WHITE BLOOD COUNT (AUTO) 7.5 K/uL (4.3-11.0)
[2020-03-30] MEDS: DOCUSATE SODIUM LIQ 100 MG/10 ML UDC NG SCH ×2 (09:04→21:19)
[2020-03-30] MEDS: CHOLECALCIFEROL 1,000 UNIT TABLET (VIT D3) PO SCH (09:04)
[2020-03-30] MEDS: PANTOPRAZOLE 40 MG VIAL IV SCH ×2 (09:04→21:19)
[2020-03-30] MEDS: ZINC SULFATE 220 MG CAPSULE PO SCH (09:04)
[2020-03-30] MEDS: FINASTERIDE (5 MG) 5 MG TABLET PO SCH (09:05)
[2020-03-30] MEDS: TAMSULOSIN 0.4 MG CAP.SR.24H PO SCH (09:05)
[2020-03-30] MEDS: PROSOURCE / PROSTAT (PYXIS) 30 ML UDC GT SCH ×2 (09:06→17:15)
--- NOTE | 2020-03-30 09:56 | NUR ---
WOUND CARE CONSULT: REVIEWED CHART, NURSING DOCUMENTATION AND PHOTO WHICH INDICATES LEFT EAR INTACT DEEP TISSUE INJURY. 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 RECOMMENDATIONS MADE FOR SKIN PROTECTION AND WOUND CARE. DISCUSSED WITH NURSING STAFF. PT IS ON [place] ISOFLEX LOW AIRLOSS BED. MD IN AGREEMENT WITH PLAN OF CARE.
--- NOTE | 2020-03-30 10:00 | NUR ---
RN NOTES CALL RECEIVED FROM RADIOLOGIST , ET TUBE IS 1 CM ABOVE CATHRYN , DR JIMENEZ NOTIFED, ET TUBE PULLED BACK BY 4 CM PER MD ORDER .
--- NOTE | 2020-03-30 12:00 | NUR ---
RN NOTES 150 CC TF RESIDUAL NOTED , TF HELD AT THIS TIME.
[2020-03-30] MEDS: CLOTRIMAZOLE 1% 15 GM TUBE TP SCH (12:42)
[2020-03-30] MEDS: FENTANYL CITRAT IV 2,500 MCG in IV NS 0.9% 200 ML IV PRN (14:20)
--- NOTE | 2020-03-30 18:00 | NUR ---
RN NOTES VSS STABLE, PT DESATS WHEN TURNS ON HIS RIGH SIDE, VSS STABLE AT THIS TIME, TF AT 10C/HR , DUE TO HIGH RESIDUAL , PT REMANINS INTUBATED AND SEDATED, RONNY DRINING TO GRAVITY, R UPPER ARM PICC LINE SITE CLEAN, DRY AND INTACT, SR UP x3, CALL LIGHT WITHIN EASY REACH, BED LOCKED AND IN LOWEST POSITION, WILL ENDORSE TO GAS ENGINE OPERATOR NURSE FOR CONTINUITY OF CARE
--- NOTE | 2020-03-30 20:00 | NUR ---
Received patient orally intubated on full vent support.Sedated on Versed gtt and Fentanyl gtt. SR.VSS.Tolerating OGT feeding.Maintained HOB elevated.FC to gravity.Turned and repositioned. Continue monitoring.
[2020-03-30] MEDS: MICAFUNGIN SODIUM 100 MG in IV NS 0.9% 100 ML IV SCH (21:32)
[2020-03-31] VITALS (25 sets, daily range): BP systolic 98–158; BP diastolic 53–86
--- NOTE | 2020-03-31 02:45 | NUR ---
Bed bath rendered.Noted patient desaturate to 65% when turned to left side.RT made aware and increased FIO2 TO 70%.Continue monitoring.
[2020-03-31] MEDS: IV NS 0.9% 250 ML IV PRN (04:59)
[2020-03-31] MEDS: METOPROLOL TARTRATE 50 MG TABLET PO SCH ×4 (06:08→23:29)
--- NOTE | 2020-03-31 07:10 | NUR ---
Patient resting no acute distress noted.All needs met.Report given to day shift for KIKE.
[2020-03-31] MEDS: ZINC SULFATE 220 MG CAPSULE PO SCH (08:25)
[2020-03-31] MEDS: TAMSULOSIN 0.4 MG CAP.SR.24H PO SCH (08:25)
[2020-03-31] MEDS: FINASTERIDE (5 MG) 5 MG TABLET PO SCH (08:25)
[2020-03-31] MEDS: CLOTRIMAZOLE 1% 15 GM TUBE TP SCH ×2 (08:25→17:56)
[2020-03-31] MEDS: PANTOPRAZOLE 40 MG VIAL IV SCH ×2 (08:25→21:01)
[2020-03-31] MEDS: DOCUSATE SODIUM LIQ 100 MG/10 ML UDC NG SCH ×2 (08:25→21:01)
[2020-03-31] MEDS: CHOLECALCIFEROL 1,000 UNIT TABLET (VIT D3) PO SCH (08:25)
[2020-03-31] MEDS: PROSOURCE / PROSTAT (PYXIS) 30 ML UDC GT SCH ×2 (08:26→17:54)
[2020-03-31] MEDS: FENTANYL CITRAT IV 2,500 MCG in IV NS 0.9% 200 ML IV PRN (08:59)
--- NOTE | 2020-03-31 09:06 | NUR ---
VENT CHANGES BELOW PER DR. JIMENEZ: FIO2 60% PEEP +10 Addendum: 03/31/20 at 0907 by MIKAL ROSENBAUM RT Amended: Links added.
[2020-03-31] MEDS: MIDAZOLAM HCL 100 MG in IV NS 0.9% 80 ML IV PRN (09:07)
[2020-03-31] MEDS ORDERED: FUROSEMIDE 40 MG/4 ML VIAL IV SCH ×2 (09:30→11:30)
[2020-03-31] MEDS: HYDROCODONE/APAP 5/325MG TABLET NG PRN (17:57)
--- NOTE | 2020-03-31 18:50 | NUR ---
RN CLOSING NOTES PT REMAINS INTUBATED. VENT SETTINGS ADJUSTED. KEPT SEDATED. REMAINS ON FENTANYL AND VERSED DRIP. ON TUBE FEEDING, RESDIUAL MONITORED. JEFFERSON IN PLACE. KEPT COMFORTABLE. WILL ENDORSE FOR CONTINUITY OF CARE
--- NOTE | 2020-03-31 20:00 | NUR ---
Received patient intubated on full vent support.Sedated on Versed gtt at 3 mg and Fentanyl gtt at 1.5 mcg infusing via TRINITY PICC LINE and site intact.SR.VSS.OGT feeding in progress. Placement verified with small residual noted.Maintained HOB elevated.FC to gravity.Turned and repositioned.No acute distress noted.
[2020-03-31] MEDS: MICAFUNGIN SODIUM 100 MG in IV NS 0.9% 100 ML IV SCH (21:15)
[2020-04-01] VITALS (46 sets, daily range): BP systolic 66–184; BP diastolic 45–102
--- NOTE | 2020-04-01 02:00 | NUR ---
AM care done.Sacral wound care done.No distress noted.Turned and repositioned.
[2020-04-01] MEDS: FENTANYL CITRAT IV 2,500 MCG in IV NS 0.9% 200 ML IV PRN ×2 (03:46→14:53)
[2020-04-01] MEDS: METOPROLOL TARTRATE 50 MG TABLET PO SCH ×4 (05:29→23:29)
[2020-04-01 06:14] LABS: BASOPHILS % (AUTO) 0.3 % (0.0-2.0); EOSINOPHILS % (AUTO) 1.2 % (0.0-6.0); HEMATOCRIT 29 % (39-51); HEMOGLOBIN 9.3 g/dL (13.5-17.5); LYMPHOCYTES # (AUTO) 0.5 /CMM (0.8-4.8); LYMPHOCYTES % (AUTO) 6.5 % (20.0-44.0); MEAN CORPUSCULAR HGB CONC 32 g/dl (31.0-36.0); MEAN CORPUSCULAR VOLUME 92 fL (80-96); MONOCYTES # (AUTO) 0.4 /CMM (0.1-1.30); MONOCYTES % (AUTO) 4.6 % (2.0-12.0); NEUTROPHILS # (AUTO) 6.8 /CMM (1.8-8.9); NEUTROPHILS % (AUTO) 87.4 % (43.0-81.0); PLATELET COUNT (AUTO) 312 /CMM (150-450); RED BLOOD CELL COUNT(AUTO) 3.16 MIL/uL (4.5-6.0); WHITE BLOOD COUNT (AUTO) 7.8 K/uL (4.3-11.0)
[2020-04-01 06:35] LABS: CALCIUM, SERUM 8.5 mg/dL (8.5-10.1); CREATININE 0.8 mg/dL (0.6-1.3); MAGNESIUM 2.4 mg/dL (1.8-2.4); PHOSPHORUS 3.5 mg/dL (2.5-4.9); POTASSIUM 4.4 mmol/L (3.5-5.1)
--- NOTE | 2020-04-01 07:30 | NUR ---
Patient resting.Fentanyl and Versed gtt infusing well.NO distress noted.All due medications administered. All needs met.Report given to day shift RN for KIKE.
[2020-04-01] MEDS: HYDROCODONE/APAP 5/325MG TABLET NG PRN (07:42)
--- NOTE | 2020-04-01 08:00 | NUR ---
PARTS DRIVER NOTE PATIENT IN BED SEDATED BUT NOTED WITH RESPIRATORY DISTRESS, INCREASED FENTANYL AND VERSED DRIP PER PROTOCOL , ON GLUCERNA WITH 20 ML PER G HOUR PER DR TONY PATEL TO START 30 ML PER HOUR, PER DR BRANDON PATEL TO HAVE CURRENT SETTING OF VENT , WITH JEFFERSON CATH TO GRAVITY PICC LINE NURSE IS COMING DUE TO ONE LUMEN IS NOT WORKING , TYLENOL GIVEN T 99.7 , WILL MONITOR
[2020-04-01] MEDS: ACETAMINOPHEN 650 MG/20.3 ML UDC NG PRN (08:27)
[2020-04-01] MEDS: CHOLECALCIFEROL 1,000 UNIT TABLET (VIT D3) PO SCH (09:07)
[2020-04-01] MEDS: PANTOPRAZOLE 40 MG VIAL IV SCH ×2 (09:08→21:06)
[2020-04-01] MEDS: ZINC SULFATE 220 MG CAPSULE PO SCH (09:08)
[2020-04-01] MEDS: PROSOURCE / PROSTAT (PYXIS) 30 ML UDC GT SCH ×2 (09:08→16:40)
[2020-04-01] MEDS: DOCUSATE SODIUM LIQ 100 MG/10 ML UDC NG SCH ×2 (09:08→21:06)
[2020-04-01] MEDS: FINASTERIDE (5 MG) 5 MG TABLET PO SCH (09:08)
[2020-04-01] MEDS: TAMSULOSIN 0.4 MG CAP.SR.24H PO SCH (09:08)
[2020-04-01] MEDS: CLOTRIMAZOLE 1% 15 GM TUBE TP SCH ×2 (09:22→16:41)
--- NOTE | 2020-04-01 10:00 | NUR ---
apiculturist note cont on drip versed and fentanyl drip as ordered turn reposition
[2020-04-01] MEDS: NOREPINEPHRINE 8 MG in IV NS 0.9% 242 ML IV PRN ×2 (10:09→23:14)
--- NOTE | 2020-04-01 12:30 | NUR ---
WEDDING DECORATOR NOTE PICC LINE NURSE INSERTED PICC LINE ON LT UPPER ARM
--- NOTE | 2020-04-01 13:28 | NUR ---
vent changes below per dr. red: vt 450 ml fio2 60% peep +8 Addendum: 04/01/20 at 1329 by MIKAL ROSENBAUM RT Amended: Links added.
[2020-04-01] MEDS ORDERED: LACTULOSE 10 G/15 ML UDC (PYXIS) PO ONE (14:30)
[2020-04-01] MEDS ORDERED: SORBITOL SOLUTION 30 ML PO ONE (14:30)
[2020-04-01] MEDS: MIDAZOLAM HCL 100 MG in IV NS 0.9% 80 ML IV PRN (14:36)
--- NOTE | 2020-04-01 15:45 | NUR ---
DIRECTOR WORK NOTE ASAEL MURCIA AT BEDSIDE AWARE THAT PATIENT HAS SMALL PIMPLE LIKE RASHES ON BODY , NO NEW ORDER GIVEN AT THIS TIME
--- NOTE | 2020-04-01 15:49 | NUR ---
ORNAMENTAL PAINTER NOTE PER DR GONZALEZ OK TO CHANGE FIO2 TO 60% PEEP 8 . RT AT BEDSIDE ,O2 SATURATION 95%
[2020-04-01] MEDS: APIXABAN 2.5 MG TABLET PO SCH (16:40)
--- NOTE | 2020-04-01 17:00 | NUR ---
PATIENT FINANCIAL COUNSELOR NOTE DR RODRIGES NOTIFIED THAT ON TELE MONITOR TRIGEMINI BP 111/65 HR 85 NO SOB NO NEW ORDER GIVEN AT THIS TIME
--- NOTE | 2020-04-01 18:40 | NUR ---
COUNSELOR DORMITORY NOTE ON LEVOPHED AND FENTANYL AND VERSED DRIP ORDER. CONTINUE ON VENT SETTING ORDERED. KEEP HOB ELEVATED. WILL MONITOR.
--- NOTE | 2020-04-01 19:30 | NUR ---
EARLY CHILDHOOD INITIAL SHIFT NOTES RECEIVED PATIENT IN BED, ORALLY INTUBATED ON MECHANICAL VENTILATION, SEDATED ON FENTANYL AND VERSED DRIPS. FENTANYL @ 3MCG/KG/HR OR 25 ML/HR, VERSED DRIP @ 6MG/HR. PATIENT ALSO ON LEVOPHED DRIP FOR BP SUPPORT @ 0.08MCG/KG/MIN. JEFFERSON CATHETER PATENT AND INTACT, DRAINING RADHIKA COLORED URINE VIA GRAVITY. WILL MONITOR CLOSELY
[2020-04-01] MEDS: MICAFUNGIN SODIUM 100 MG in IV NS 0.9% 100 ML IV SCH (21:08)
[2020-04-01] MEDS: IV NS 0.9% 250 ML IV PRN (22:24)
[2020-04-01] MEDS ORDERED: NOREPINEPHRINE 8MG/250ML RTU 250 ML IV ONE (23:00)
[2020-04-02] VITALS (79 sets, daily range): BP systolic 104–152; BP diastolic 48–78
[2020-04-02] MEDS: FENTANYL CITRAT IV 2,500 MCG in IV NS 0.9% 200 ML IV PRN ×2 (00:37→10:48)
[2020-04-02] MEDS ORDERED: ALTEPLASE CATHFLO 2 MG/VIAL XX ONE (04:30)
[2020-04-02 04:31] LABS: BASOPHILS % (AUTO) 0.3 % (0.0-2.0); EOSINOPHILS % (AUTO) 15.4 % (0.0-6.0); HEMATOCRIT 26 % (39-51); HEMOGLOBIN 8.2 g/dL (13.5-17.5); LYMPHOCYTES # (AUTO) 0.6 /CMM (0.8-4.8); LYMPHOCYTES % (AUTO) 8.3 % (20.0-44.0); MEAN CORPUSCULAR HGB CONC 32 g/dl (31.0-36.0); MEAN CORPUSCULAR VOLUME 93 fL (80-96); MONOCYTES # (AUTO) 0.3 /CMM (0.1-1.30); MONOCYTES % (AUTO) 3.5 % (2.0-12.0); NEUTROPHILS # (AUTO) 5.3 /CMM (1.8-8.9); NEUTROPHILS % (AUTO) 72.5 % (43.0-81.0); PLATELET COUNT (AUTO) 320 /CMM (150-450); RED BLOOD CELL COUNT(AUTO) 2.74 MIL/uL (4.5-6.0); WHITE BLOOD COUNT (AUTO) 7.3 K/uL (4.3-11.0)
[2020-04-02 04:51] LABS: CALCIUM, SERUM 7.9 mg/dL (8.5-10.1); CREATININE 0.8 mg/dL (0.6-1.3); MAGNESIUM 2.3 mg/dL (1.8-2.4)
--- NOTE | 2020-04-02 05:00 | NUR ---
BUSINESS INTELLIGENCE ETL DEVELOPER NOTE 1 PORT ON TRINITY PICC OCCLUDED, ORDER OBTAINED FOR CATHFLO. WILL CARRY OUT NEW ORDERS AND CONTINUE CLOSE MONITORING
[2020-04-02] MEDS ORDERED: ALTEPLASE CATHFLO 2 MG/VIAL ONE (05:20)
[2020-04-02 05:51] LABS: ABG OXYGEN SATURATION 93.8 % (92.0-98.5); ABG PH 7.337 (7.350-7.450); ABG PO2 72.4 mmHg (75.0-100.0); MetHb 0.3 % (0.0-1.5); O2Hb 92.6 % (94.0-97.0); SITE, ABG Right Radial; VENT MODE, BG AC24 450 60% +8
[2020-04-02] MEDS: METOPROLOL TARTRATE 50 MG TABLET PO SCH ×3 (06:48→17:28)
--- NOTE | 2020-04-02 07:00 | NUR ---
TRANSPORT TANK TECHNICIAN NOTES PATIENT REMINS ORALLY INTUBATED ON MECHANICAL VENTILATION, REMAINS SEDATED ON FENTANYL AND VERSED DRIPS, WITH LEVOPHED DRIP FOR BP SUPPORT, CURRENTLY @ 0.08MCGH/KG/MIN. WILL ENDORSE PATIENT TO DAY SHIFT NURSE FOR KIKE
--- NOTE | 2020-04-02 08:00 | NUR ---
rn notes RECEIVED PATIENT ORALLY INTUBATED ON MECHANICAL VENTILATION TOLERATING WELL, NO ACUTE RESPIRATORY DISTRESS. REMAINS SEDATED ON FENTANYL 3MG/ML, VARCED 4MG/ML AND VERSED WITH LEVOPHED 0.08MCG/KG/HR DRIP FOR BP SUPPORT, RUNNING GLUCERNA 1.2 AT 25 ML/HR, RESIDUAL 20ML, ALSO CHECKED PLACEMENT. AM MEDICATION DONE , EDEMA BLE, AND UPPER ARMS, ELEVATED USING PILLOWS, SEEN PATIENT BY WOUND NURSE, ASSIST TURN AND REPOSTION Q 2 HR, JEFFERSON DRAINING LIGHT YELLOW OUTPUT. WILL MONITORING.
[2020-04-02] MEDS: MIDAZOLAM HCL 100 MG in IV NS 0.9% 80 ML IV PRN (08:02)
--- NOTE | 2020-04-02 08:18 | NUR ---
WOUND CARE CONSULT: REVIEWED CHART, NURSING DOCUMENTATION AND PHOTOS WHICH INDICATE SACRAL INTACT DEEP TISSUE INJURY. RECOMMENDATIONS MADE FOR SKIN PROTECTION AND WOUND CARE. DISCUSSED WITH NURSING STAFF. PT NOTED TO HAVE MULTIPLE CO-MORBIDITIES INCLUDING RESPIRATORY FAILURE, COVID PNEUMONIA, ACUTE RENAL FAILURE AND GI BLEED. DUE TO THESE CO-MORBIDITES, FURTHER SKIN BREAKDOWN MAY BE UNAVOIDABLE. PT IS ON [place] ISOFLEX LOW AIRLOSS BED. MD IN AGREEMENT WITH PLAN OF CARE.
[2020-04-02] MEDS: PANTOPRAZOLE 40 MG VIAL IV SCH ×2 (09:04→21:11)
[2020-04-02] MEDS: ZINC SULFATE 220 MG CAPSULE PO SCH (09:04)
[2020-04-02] MEDS: FINASTERIDE (5 MG) 5 MG TABLET PO SCH (09:04)
[2020-04-02] MEDS: CHOLECALCIFEROL 1,000 UNIT TABLET (VIT D3) PO SCH (09:04)
[2020-04-02] MEDS: TAMSULOSIN 0.4 MG CAP.SR.24H PO SCH (09:04)
[2020-04-02] MEDS: APIXABAN 2.5 MG TABLET PO SCH ×2 (09:05→17:25)
[2020-04-02] MEDS: PROSOURCE / PROSTAT (PYXIS) 30 ML UDC GT SCH ×2 (09:06→17:22)
[2020-04-02] MEDS: CLOTRIMAZOLE 1% 15 GM TUBE TP SCH ×2 (09:06→17:23)
[2020-04-02] MEDS: DOCUSATE SODIUM LIQ 100 MG/10 ML UDC NG SCH ×2 (09:09→21:11)
--- NOTE | 2020-04-02 11:07 | NUR ---
rn notes covid 19 testing swab taken .
[2020-04-02] MEDS: LACTULOSE 10 G/15 ML UDC (PYXIS) PO PRN (14:33)
--- NOTE | 2020-04-02 14:33 | NUR ---
rn notes administered lactulose 20 ml prn vis ogt., and start new feeding Glucerna 1.2 25 ml/hr.
[2020-04-02] MEDS: GLUCERNA 1.2 1,000 ML BOTTLE NG PRN (14:35)
--- NOTE | 2020-04-02 18:56 | NUR ---
RN NOTES AM CARE DONE, TOLERATING SETTING WELL, HELD METOPROLOL AT THIS TIME BECAUSE OF DROOPING HR , FLASH 250 ML WATER, INFUSING FENTANYL 2 MG/ML, AND VERSED 3 MG/ML INTACT ON LEFT PICC LINE INFUSING WELL, TITRATED PER PROTOCOL. PATIENT HAS ACTIVE BOWEL MOVEMENT IN FOR QUADRANT OF ABDOMEN, LACTULOSE WERE ADMINISTERED NOT WORKING YET, ASSIST TURN AND REPOSTION Q 2 HR, TOLERATING GLUCERNA AT 25 ML/HR, JEFFERSON DRAINS YELLOW OUTPUT. ASSIST TURN AND REPOSTION Q 2 HR. ENDORSED ONCOMING NURSE FOLLOW KIKE.
--- NOTE | 2020-04-02 19:30 | NUR ---
PANEL FITTER INITIAL SHIFT NOTES RECEIVED PATIENT IN BED, ORALLY INTUBATED ON MECHANICAL VENTILATION, SEDATED ON FENTANYL AND VERSED DRIPS. FENTANYL @ 2MCG/KG/HR, VERSED DRIP @ 3MG/HR. JEFFERSON CATHETER PATENT AND INTACT, DRAINING RADHIKA COLORED URINE VIA GRAVITY. ISOLATION PRECAUTIONS OBSERVED. WILL MONITOR CLOSELY
--- NOTE | 2020-04-02 20:00 | NUR ---
WHEEL GRINDER NOTES PATIENT CONTINUES WITH SUBCUTANEOUS EMPHYSEMA OF THE NECK AND UPPER CHEST WITH VISIBLE SWELLING, PALPABLE CREPITUS. REMAINS ORALLY INTUBATED, TOLERATING VENT SETTINGS WELL. WILL MONITOR CLSOELY
[2020-04-02] MEDS: MICAFUNGIN SODIUM 100 MG in IV NS 0.9% 100 ML IV SCH (21:11)
[2020-04-03] VITALS (45 sets, daily range): BP systolic 76–185; BP diastolic 40–107
[2020-04-03] MEDS: FENTANYL CITRAT IV 2,500 MCG in IV NS 0.9% 200 ML IV PRN ×2 (00:04→15:12)
[2020-04-03] MEDS: METOPROLOL TARTRATE 50 MG TABLET PO SCH ×4 (00:09→18:00)
[2020-04-03] MEDS: IV NS 0.9% 250 ML IV PRN (02:31)
--- NOTE | 2020-04-03 04:00 | NUR ---
PUBLIC ADDRESS ANNOUNCER NOTES BED BATH RENDERED. NO BM AT THIS TIME. PATIENT TOLERATED BATH WELL, WILL CONTINUE TO MONITOR
[2020-04-03 04:13] LABS: BASOPHILS % (AUTO) 0.1 % (0.0-2.0); EOSINOPHILS % (AUTO) 10.1 % (0.0-6.0); HEMATOCRIT 27 % (39-51); HEMOGLOBIN 8.6 g/dL (13.5-17.5); LYMPHOCYTES # (AUTO) 0.4 /CMM (0.8-4.8); MEAN CORPUSCULAR HGB CONC 32 g/dl (31.0-36.0); MEAN CORPUSCULAR VOLUME 93 fL (80-96); MONOCYTES # (AUTO) 0.2 /CMM (0.1-1.30); MONOCYTES % (AUTO) 3.9 % (2.0-12.0); NEUTROPHILS # (AUTO) 3.9 /CMM (1.8-8.9); NEUTROPHILS % (AUTO) 78.9 % (43.0-81.0); PLATELET COUNT (AUTO) 269 /CMM (150-450); RED BLOOD CELL COUNT(AUTO) 2.89 MIL/uL (4.5-6.0)
[2020-04-03 04:28] LABS: CALCIUM, SERUM 7.9 mg/dL (8.5-10.1); CREATININE 0.6 mg/dL (0.6-1.3); MAGNESIUM 2.3 mg/dL (1.8-2.4); PHOSPHORUS 3.1 mg/dL (2.5-4.9); POTASSIUM 4.4 mmol/L (3.5-5.1)
--- NOTE | 2020-04-03 07:00 | NUR ---
PRODUCTION TROUBLESHOOTER NOTES NO ACUTE CHANGES NOTED THROUGHOUT SHIFT. PATIENT REMAINS ORALLY INTUBATED ON MECHANICAL ENTILATION, SEDATED ON FENTANYL AND VERSED DRIPS.
[2020-04-03] MEDS: PANTOPRAZOLE 40 MG VIAL IV SCH ×2 (08:23→20:07)
[2020-04-03] MEDS: DOCUSATE SODIUM LIQ 100 MG/10 ML UDC NG SCH ×2 (08:23→20:07)
[2020-04-03] MEDS: CHOLECALCIFEROL 1,000 UNIT TABLET (VIT D3) PO SCH (08:26)
[2020-04-03] MEDS: CLOTRIMAZOLE 1% 15 GM TUBE TP SCH ×2 (08:26→17:05)
[2020-04-03] MEDS: FINASTERIDE (5 MG) 5 MG TABLET PO SCH (08:26)
[2020-04-03] MEDS: ZINC SULFATE 220 MG CAPSULE PO SCH (08:26)
[2020-04-03] MEDS: TAMSULOSIN 0.4 MG CAP.SR.24H PO SCH (08:26)
[2020-04-03] MEDS: PROSOURCE / PROSTAT (PYXIS) 30 ML UDC GT SCH ×2 (08:31→17:05)
[2020-04-03] MEDS: APIXABAN 2.5 MG TABLET PO SCH ×2 (08:32→17:05)
[2020-04-03 08:51] LABS: ABG BASE EXCESS 11.7 mmol/L; ABG OXYGEN SATURATION 91.9 % (92.0-98.5); ABG PCO2 58.3 mmHg (35.0-45.0); ABG PH 7.427 (7.350-7.450); ABG PO2 60.1 mmHg (75.0-100.0); AaDO2 230.8 mmHg; COHb 1.2 % (0.5-1.5); MetHb 0.3 % (0.0-1.5); O2Hb 90.5 % (94.0-97.0); SITE, ABG Left Radial; VENT MODE, BG AC24 450 +5 50%
[2020-04-03] MEDS ORDERED: LORAZEPAM INJ 2 MG/ML VIAL IV STA (10:02)
[2020-04-03] MEDS: MIDAZOLAM HCL 100 MG in IV NS 0.9% 80 ML IV PRN (12:58)
[2020-04-03] MEDS: NOREPINEPHRINE 8 MG in IV NS 0.9% 242 ML IV PRN (13:58)
[2020-04-03] MEDS: GLUCERNA 1.2 1,000 ML BOTTLE NG PRN (17:05)
--- NOTE | 2020-04-03 18:58 | NUR ---
RN CLOSING NOTES DONE SEDATION VACATION IN AM. PT BECAME TACHYCARDIC 140S, HYPERTENSION SBP 170S, DBP 100S. FENTANYL AND VERSED DRIP RESTARTED. TUBE FEEDING INCREASED TO 40ML/HR. TOLERATING WELL. JEFFERSON IN PLACE. KEPT COMFORTABLE. WILL ENDORSE FOR CONTINUITY OF CARE.
[2020-04-03] MEDS: MICAFUNGIN SODIUM 100 MG in IV NS 0.9% 100 ML IV SCH (22:15)
[2020-04-04] VITALS (60 sets, daily range): BP systolic 89–164; BP diastolic 46–92
[2020-04-04] MEDS: METOPROLOL TARTRATE 50 MG TABLET PO SCH ×5 (00:57→23:15)
[2020-04-04] MEDS: ACETAMINOPHEN 650 MG/20.3 ML UDC NG PRN (00:57)
[2020-04-04 04:48] LABS: BASOPHILS % (AUTO) 0.3 % (0.0-2.0); EOSINOPHILS % (AUTO) 10.2 % (0.0-6.0); HEMATOCRIT 27 % (39-51); HEMOGLOBIN 8.7 g/dL (13.5-17.5); LYMPHOCYTES # (AUTO) 0.4 /CMM (0.8-4.8); LYMPHOCYTES % (AUTO) 9.1 % (20.0-44.0); MEAN CORPUSCULAR HGB CONC 32 g/dl (31.0-36.0); MEAN CORPUSCULAR VOLUME 93 fL (80-96); MONOCYTES # (AUTO) 0.3 /CMM (0.1-1.30); MONOCYTES % (AUTO) 6.9 % (2.0-12.0); NEUTROPHILS # (AUTO) 3.5 /CMM (1.8-8.9); NEUTROPHILS % (AUTO) 73.5 % (43.0-81.0); PLATELET COUNT (AUTO) 292 /CMM (150-450); RED BLOOD CELL COUNT(AUTO) 2.95 MIL/uL (4.5-6.0); WHITE BLOOD COUNT (AUTO) 4.7 K/uL (4.3-11.0)
[2020-04-04 04:57] LABS: CALCIUM, SERUM 7.9 mg/dL (8.5-10.1); CARBON DIOXIDE 38 mmol/L (21-32); CHLORIDE 106 mmol/L (98-107); CREATININE 0.5 mg/dL (0.6-1.3); GLUCOSE 114 mg/dL (74-106); MAGNESIUM 2.3 mg/dL (1.8-2.4); POTASSIUM 4.3 mmol/L (3.5-5.1); SODIUM SERUM 145 mmol/L (136-145); UREA NITROGEN, BLOOD 22 mg/dL (7-18)
[2020-04-04 05:08] LABS: CREATINE KINASE, TOTAL 65 U/L (39-308); FERRITIN 458 ng/mL (8-388)
[2020-04-04] MEDS: FENTANYL CITRAT IV 2,500 MCG in IV NS 0.9% 200 ML IV PRN ×2 (05:45→20:56)
--- NOTE | 2020-04-04 06:22 | NUR ---
BOILERS INSPECTOR NOTES 0600 DOSE HELD PER PARAMETERS. HR NOTED TO DROP TO 50BPM DURING TURNING REPOSITIONING
--- NOTE | 2020-04-04 07:45 | NUR ---
ICU/RN PT IS INTUBATED ON THE VENT AC MODE,FIO2-50%.SAT O2-97%.V/S STABLE.AFEBRILE.NO PAIN REPORTED AT THIS TIME.PT IS SEDATED ON VERSED AND FENTANYL.OFF PRESSORS.OG TUBE INFUSING WITH JEVITY NO RESIDUAL NOTED.F/C DRAINING WITH RADHIKA URINE.LOWER BACK WOUND COVERED WITH MEPILEX.ABDOMEN DISTENDED.GENERALIZED EDEMA PRESENT.SUCTION PROVIDED.REPOSITION FOR COMFORT.LABS REVIEW.
--- NOTE | 2020-04-04 07:48 | NUR ---
[facility] VT 450 ML FIO2 50% PEEP +5 Addendum: 04/04/20 at 0749 by MIKAL ROSENBAUM RT Amended: Links added.
[2020-04-04] MEDS: DOCUSATE SODIUM LIQ 100 MG/10 ML UDC NG SCH ×2 (08:09→21:27)
[2020-04-04] MEDS: ZINC SULFATE 220 MG CAPSULE PO SCH (08:10)
[2020-04-04] MEDS: TAMSULOSIN 0.4 MG CAP.SR.24H PO SCH (08:10)
[2020-04-04] MEDS: PANTOPRAZOLE 40 MG VIAL IV SCH ×2 (08:10→21:27)
[2020-04-04] MEDS: CHOLECALCIFEROL 1,000 UNIT TABLET (VIT D3) PO SCH (08:10)
[2020-04-04] MEDS: FINASTERIDE (5 MG) 5 MG TABLET PO SCH (08:10)
[2020-04-04] MEDS: PROSOURCE / PROSTAT (PYXIS) 30 ML UDC GT SCH ×2 (08:11→18:10)
[2020-04-04] MEDS: APIXABAN 2.5 MG TABLET PO SCH ×2 (08:12→17:21)
[2020-04-04] MEDS: CLOTRIMAZOLE 1% 15 GM TUBE TP SCH ×2 (08:18→17:23)
--- NOTE | 2020-04-04 09:00 | NUR ---
ICU/RN DUE MEDS ARE GIVEN ORDERED.SEDATION VACATION PROVIDED.FENTANYL DECREASED.PT IS UNABLE TO TOLERATE.HR INCREASED TO 130-140 BPM.RR-30 BPM.BP INCREASED.MD NOTIFIED.CONTINUE MONITORING.
[2020-04-04 11:54] LABS: C-REACTIVE PROTEIN 7.7 mg/dL (0.0-0.9)
[2020-04-04] MEDS: GLUCERNA 1.2 1,000 ML BOTTLE NG PRN (15:15)
--- NOTE | 2020-04-04 17:20 | NUR ---
ICU/RN PM CARE PROVIDED.WOUND DRESSING DONE ORDERED.DUE MEDS ARE GIVEN ,SUCTION PROVIDED.PT IS ON VERSED AND FENTANYL.SEDATED.V/S STABLE ,AFEBRILE.NO PAIN REPORTED AT THIS TIME.CONTINUE MONITORING.
[2020-04-04] MEDS: MIDAZOLAM HCL 100 MG in IV NS 0.9% 80 ML IV PRN (17:23)
[2020-04-04] MEDS: HYDROCODONE/APAP 5/325MG TABLET NG PRN (21:27)
[2020-04-05] VITALS (33 sets, daily range): BP systolic 88–153; BP diastolic 50–83
[2020-04-05 04:10] LABS: BASOPHILS % (AUTO) 0.7 % (0.0-2.0); EOSINOPHILS % (AUTO) 11.2 % (0.0-6.0); HEMATOCRIT 26 % (39-51); HEMOGLOBIN 8.2 g/dL (13.5-17.5); LYMPHOCYTES # (AUTO) 0.4 /CMM (0.8-4.8); MEAN CORPUSCULAR HGB CONC 31 g/dl (31.0-36.0); MEAN CORPUSCULAR VOLUME 94 fL (80-96); MONOCYTES # (AUTO) 0.2 /CMM (0.1-1.30); MONOCYTES % (AUTO) 4.5 % (2.0-12.0); NEUTROPHILS # (AUTO) 3.9 /CMM (1.8-8.9); NEUTROPHILS % (AUTO) 75.6 % (43.0-81.0); PLATELET COUNT (AUTO) 304 /CMM (150-450); RED BLOOD CELL COUNT(AUTO) 2.79 MIL/uL (4.5-6.0); WHITE BLOOD COUNT (AUTO) 5.2 K/uL (4.3-11.0)
[2020-04-05 04:19] LABS: CALCIUM, SERUM 7.8 mg/dL (8.5-10.1); CREATININE 0.6 mg/dL (0.6-1.3); MAGNESIUM 2.2 mg/dL (1.8-2.4); PHOSPHORUS 3.6 mg/dL (2.5-4.9); POTASSIUM 4.5 mmol/L (3.5-5.1)
[2020-04-05] MEDS: METOPROLOL TARTRATE 50 MG TABLET PO SCH ×4 (05:48→23:59)
--- NOTE | 2020-04-05 06:25 | NUR ---
Patient remains in no acute distress in bed. patient did not have any significant change in condition during shift. all needs met, all orders carried out. Patient turned and repositioned q2h. Patient tolerating vent setting and is well sedated on versed and fentanyl. bed in low lock position with rials up x 2. call light within reach and all safety measures ensured and carried out. will endorse care to am RN for continuity of care.
[2020-04-05] MEDS: PANTOPRAZOLE 40 MG VIAL IV SCH ×2 (08:21→21:02)
[2020-04-05] MEDS: CHOLECALCIFEROL 1,000 UNIT TABLET (VIT D3) PO SCH (08:21)
[2020-04-05] MEDS: TAMSULOSIN 0.4 MG CAP.SR.24H PO SCH (08:21)
[2020-04-05] MEDS: DOCUSATE SODIUM LIQ 100 MG/10 ML UDC NG SCH ×2 (08:21→21:02)
[2020-04-05] MEDS: PROSOURCE / PROSTAT (PYXIS) 30 ML UDC GT SCH ×2 (08:22→17:07)
[2020-04-05] MEDS: FINASTERIDE (5 MG) 5 MG TABLET PO SCH (08:22)
[2020-04-05] MEDS: ZINC SULFATE 220 MG CAPSULE PO SCH (08:22)
[2020-04-05] MEDS: CLOTRIMAZOLE 1% 15 GM TUBE TP SCH ×2 (08:22→17:07)
--- NOTE | 2020-04-05 08:26 | NUR ---
FIO2 TITRATE DOWN TO 50% DUE TO 98% SPO2 Addendum: 04/05/20 at 0827 by MIKAL ROSENBAUM RT Amended: Links added.
[2020-04-05] MEDS: APIXABAN 2.5 MG TABLET PO SCH ×2 (09:00→17:00)
[2020-04-05] MEDS: FENTANYL CITRAT IV 2,500 MCG in IV NS 0.9% 200 ML IV PRN (11:14)
[2020-04-05] MEDS: MIDAZOLAM HCL 100 MG in IV NS 0.9% 80 ML IV PRN (12:41)
[2020-04-05] MEDS: GLUCERNA 1.2 1,000 ML BOTTLE NG PRN (14:27)
--- NOTE | 2020-04-05 16:54 | NUR ---
FIO2 INCREASE TO 60% DUE TO 92% SPO2 Addendum: 04/05/20 at 1654 by MIKAL ROSENBAUM RT Amended: Links added.
--- NOTE | 2020-04-05 18:27 | NUR ---
RN CLOSING NOTES PT REMAINS INTUBATED, ON VENT. KEPT HOB ELEVATED. REMAINS ON FENTANYL AND VERSED DRIP. TOLERTAIGN TUBE FEEDING WELL. JEFFERSON IN PLACE. KEPT COMFORTABLE. FOR POSSIBLE TRACH PLACEMENT IN AM. CONSENT OBTAINED FROM SON. WILL ENDORSE FOR CONTINUITY OF CARE.
--- NOTE | 2020-04-05 19:00 | NUR ---
Received patient orally intubated to the ventilator on AC mode,FIO@ 60 % ,PEEP =5, PIP=33.Breathing regular and non labored,(-) cough,(-) gag, but with slight movement of mouth/lips when oral care done,no respond to pain ,Sedated on Versed drip and Fentanyl drip.PICC line on bilateral arms( old Picc on TRINITY, flushes but no blood return),new PICC MIRTA.OGT with on going feeding ,fairly tolerating (residual =40 ml).ASpiration Precaution observed. For tracheostomy in am. NPO post midnight.
--- NOTE | 2020-04-05 21:25 | NUR ---
FIO2 down to 50 %, RT at bedside monitoring patient,tolerating well saturating 95 %, no sign of respiratory diatress.Will continue to closely monitor.
--- NOTE | 2020-04-05 22:00 | NUR ---
Repositioned,turned to the left.Noted HR to go down into the 60's when being turned/repositioned.But goes back up slowly into 70's after moving patient . Also obseved to be saturating better/higher when on his back compared to when he's turned on his side.( on supine alvarado'sposition saturating 94-95 %, on his left saturating 92-93 %).
[2020-04-06] VITALS (50 sets, daily range): BP systolic 105–164; BP diastolic 54–98
--- NOTE | 2020-04-06 | NUR ---
Heart rate observed to be in the 100's (105-110),also noted patient to be breathing with deeper inspiratory effort and BP 130's -140's systolic, PIP=35-37. Stillmsaturating same 92-93 % with FIO2 of 50 %. Due Lopressor via OGT given, patient is afebrile. Increase Versed drip for now to 4.5 mg/hr. Will closely monitor for now .Repositioned .place on supine,back skin care done.
--- NOTE | 2020-04-06 | NUR ---
NPO from now.(feeding off). For possible tracheostomy in am
--- NOTE | 2020-04-06 01:00 | NUR ---
HR now 80's, breathing non labored,BP 121/74, sat 94 %. Versed drip maintained @ 4 mg/hr .
[2020-04-06] MEDS: FENTANYL CITRAT IV 2,500 MCG in IV NS 0.9% 200 ML IV PRN ×2 (01:36→15:13)
[2020-04-06 03:45] LABS: BASOPHILS % (AUTO) 0.1 % (0.0-2.0); EOSINOPHILS % (AUTO) 12.6 % (0.0-6.0); HEMATOCRIT 26 % (39-51); HEMOGLOBIN 8.5 g/dL (13.5-17.5); LYMPHOCYTES # (AUTO) 0.6 /CMM (0.8-4.8); LYMPHOCYTES % (AUTO) 9.1 % (20.0-44.0); MEAN CORPUSCULAR HGB CONC 32 g/dl (31.0-36.0); MEAN CORPUSCULAR VOLUME 93 fL (80-96); MONOCYTES # (AUTO) 0.3 /CMM (0.1-1.30); MONOCYTES % (AUTO) 5.6 % (2.0-12.0); NEUTROPHILS # (AUTO) 4.6 /CMM (1.8-8.9); NEUTROPHILS % (AUTO) 72.6 % (43.0-81.0); PLATELET COUNT (AUTO) 349 /CMM (150-450); RED BLOOD CELL COUNT(AUTO) 2.83 MIL/uL (4.5-6.0); WHITE BLOOD COUNT (AUTO) 6.3 K/uL (4.3-11.0)
--- NOTE | 2020-04-06 04:00 | NUR ---
Noted to be tachypneic,RR=30 and more labored (with deep inspiratory effort),but PIP=29 only. Heart also going up on and off in the 120's. Suctioned but no secretions obtained.Taylorll increase sedation.
[2020-04-06 04:10] LABS: CALCIUM, SERUM 7.9 mg/dL (8.5-10.1); CARBON DIOXIDE 39 mmol/L (21-32); CHLORIDE 105 mmol/L (98-107); CREATININE 0.5 mg/dL (0.6-1.3); GLUCOSE 88 mg/dL (74-106); MAGNESIUM 2.5 mg/dL (1.8-2.4); POTASSIUM 4.6 mmol/L (3.5-5.1); SODIUM SERUM 143 mmol/L (136-145); UREA NITROGEN, BLOOD 22 mg/dL (7-18)
--- NOTE | 2020-04-06 04:30 | NUR ---
Still breathing labored ,saturating 91-92 % with FIO2 of 50 % ,B)P still elevated . Will increase Versed drip ,FIO2 increase to 60 % by RT.
--- NOTE | 2020-04-06 05:00 | NUR ---
Versed drip up to 6 mg/hr . breathing less labored,will wean down as tolertaed.
[2020-04-06] MEDS: METOPROLOL TARTRATE 50 MG TABLET PO SCH ×3 (05:20→17:59)
--- NOTE | 2020-04-06 05:30 | NUR ---
water flush via OGT ,held,stef Renteria, but Meds given(metoprolol ) due to HR going up on and off ,bp stable.
[2020-04-06] MEDS: MIDAZOLAM HCL 100 MG in IV NS 0.9% 80 ML IV PRN (06:59)
--- NOTE | 2020-04-06 07:00 | NUR ---
sTABLE NOW, hr IN THE 70'S, BREATHING NOT LABORED, oN fio2 60 % .,SATURATING 93 -94 %. mAINTAIN npo ,FOR TRCAHEOSTOMY TODAY.
[2020-04-06] MEDS: PANTOPRAZOLE 40 MG VIAL IV SCH ×2 (08:20→22:09)
[2020-04-06] MEDS: ZINC SULFATE 220 MG CAPSULE PO SCH (09:00)
[2020-04-06] MEDS: FINASTERIDE (5 MG) 5 MG TABLET PO SCH (09:00)
[2020-04-06] MEDS: TAMSULOSIN 0.4 MG CAP.SR.24H PO SCH (09:00)
[2020-04-06] MEDS: DOCUSATE SODIUM LIQ 100 MG/10 ML UDC NG SCH ×2 (09:00→22:08)
[2020-04-06] MEDS: APIXABAN 2.5 MG TABLET PO SCH ×2 (09:00→18:01)
[2020-04-06] MEDS: CHOLECALCIFEROL 1,000 UNIT TABLET (VIT D3) PO SCH (09:00)
[2020-04-06] MEDS: PROSOURCE / PROSTAT (PYXIS) 30 ML UDC GT SCH ×2 (09:00→18:01)
[2020-04-06] MEDS: CLOTRIMAZOLE 1% 15 GM TUBE TP SCH ×2 (10:48→18:00)
[2020-04-06] MEDS: GLUCERNA 1.2 1,000 ML BOTTLE NG PRN (18:22)
--- NOTE | 2020-04-06 18:40 | NUR ---
RN CLOSING NOTES TRACH PLACEMENT DONE. NO ACTIVE BLEEDING ON SITE NOTED. TOLERATING VENT WELL. KEPT HOB ELEVATED. REMAINS ON FENTANYL AND VERSED DRIP. TUBE FEEDING RESTARTED AT 1800. JEFFERSON IN PLACE. KEPT COMFORTABLE. WILL ENDORSE FOR CONTINUITY OF CARE.
--- NOTE | 2020-04-06 19:15 | NUR ---
FEEDER/FOLDER. INITIAL ASSESSMENT. RECEIVED THE PT REST ON THE BED.TRACH TO VENT CONNECTED. TRACH SHILEY#8,AC 24,TV 450,FIO2 80%,PEEP 5. SAT 98%. NO ACUTE DISTRESS NOTED. DOMESTIC FREIGHT FORWARDER SHOWING NSR. IV RT AND LT UPPER ARM PICC LINE VERSED 4MG/H.FENTANYL 2MCG/KG/MIN, RT NARE NGT GLUCERNA 40ML/H, FC PATENT. WILL CONTINUE TO MONITOR VITALS.
--- NOTE | 2020-04-06 19:53 | NUR ---
ENVIRONMENTAL AID. FIO2 TITRATE DOWN. SAT 97%. NO ACUTE DISTRESS NOTED. WILL CONTINUE TO MONITOR VITALS.
[2020-04-07] VITALS (63 sets, daily range): BP systolic 97–161; BP diastolic 50–92
[2020-04-07] MEDS: METOPROLOL TARTRATE 50 MG TABLET PO SCH ×4 (00:15→18:20)
--- NOTE | 2020-04-07 00:59 | NUR ---
curriculum development manager. remaining same vent setting tolerated well. sat 97%, no acute distress noted.
[2020-04-07] MEDS: FENTANYL CITRAT IV 2,500 MCG in IV NS 0.9% 200 ML IV PRN ×2 (03:46→18:22)
[2020-04-07 04:08] LABS: BASOPHILS % (AUTO) 0.2 % (0.0-2.0); EOSINOPHILS % (AUTO) 9.6 % (0.0-6.0); HEMATOCRIT 26 % (39-51); HEMOGLOBIN 8.4 g/dL (13.5-17.5); LYMPHOCYTES # (AUTO) 0.5 /CMM (0.8-4.8); LYMPHOCYTES % (AUTO) 7.7 % (20.0-44.0); MEAN CORPUSCULAR HGB CONC 32 g/dl (31.0-36.0); MEAN CORPUSCULAR VOLUME 93 fL (80-96); MONOCYTES # (AUTO) 0.4 /CMM (0.1-1.30); MONOCYTES % (AUTO) 6.4 % (2.0-12.0); NEUTROPHILS % (AUTO) 76.1 % (43.0-81.0); PLATELET COUNT (AUTO) 349 /CMM (150-450); WHITE BLOOD COUNT (AUTO) 6.5 K/uL (4.3-11.0)
[2020-04-07] MEDS: MIDAZOLAM HCL 100 MG in IV NS 0.9% 80 ML IV PRN ×2 (04:17→23:24)
--- NOTE | 2020-04-07 04:18 | NUR ---
curriculum and instruction director. rt upper arm old picc line removed. no bleeding noted
[2020-04-07 04:25] LABS: ALANINE AMINOTRANSFERASE 28 U/L (12-78); ALKALINE PHOSPHATASE 55 U/L (46-116); ASPARTATE AMINOTRANSFERASE 21 U/L (15-37); BILIRUBIN,TOTAL 0.4 mg/dL (0.2-1.0); CALCIUM, SERUM 7.8 mg/dL (8.5-10.1); CHLORIDE 106 mmol/L (98-107); CREATININE 0.5 mg/dL (0.6-1.3); GLUCOSE 108 mg/dL (74-106); PHOSPHORUS 3.4 mg/dL (2.5-4.9); POTASSIUM 4.2 mmol/L (3.5-5.1); SODIUM SERUM 146 mmol/L (136-145); TOTAL PROTEIN, SERUM 6.1 g/dL (6.4-8.2); UREA NITROGEN, BLOOD 18 mg/dL (7-18)
[2020-04-07 04:42] LABS: ALBUMIN 1.4 g/dL (3.4-5.0); CARBON DIOXIDE 42 mmol/L (21-32)
--- NOTE | 2020-04-07 04:54 | NUR ---
curriculum facilitator. am care, given. linen changed. remaining same vent setting tolerated well. sat 98%, no acute distress noted, desk monitor showing nsr, iv lt upper arm picc line, versed 4mcg/min,fentanyl 2mcg/kg/min hob elevated. ngt feeding tolerated well. fc patent. urine draining. will continue to monitor vitals.
--- NOTE | 2020-04-07 05:51 | NUR ---
manager nicu. co2 42. notified match up person casework manager lou. new order received. bicarb 1 amp iv given.
[2020-04-07] MEDS ORDERED: SODIUM BICARBONATE SYR 50 MEQ/50 ML DISP.SYRIN ONE (05:56)
[2020-04-07] MEDS ORDERED: SODIUM BICARBONATE SYR 50 MEQ/50 ML DISP.SYRIN IV ONE (06:00)
[2020-04-07] MEDS: TAMSULOSIN 0.4 MG CAP.SR.24H PO SCH (08:24)
[2020-04-07] MEDS: ZINC SULFATE 220 MG CAPSULE PO SCH (08:24)
[2020-04-07] MEDS: FINASTERIDE (5 MG) 5 MG TABLET PO SCH (08:24)
[2020-04-07] MEDS: CHOLECALCIFEROL 1,000 UNIT TABLET (VIT D3) PO SCH (08:24)
[2020-04-07] MEDS: PANTOPRAZOLE 40 MG VIAL IV SCH ×2 (08:24→20:57)
[2020-04-07] MEDS: DOCUSATE SODIUM LIQ 100 MG/10 ML UDC NG SCH ×2 (08:24→20:57)
[2020-04-07] MEDS: APIXABAN 2.5 MG TABLET PO SCH (08:25)
[2020-04-07] MEDS: PROSOURCE / PROSTAT (PYXIS) 30 ML UDC GT SCH ×2 (08:26→16:10)
[2020-04-07] MEDS: CLOTRIMAZOLE 1% 15 GM TUBE TP SCH ×2 (08:27→16:10)
--- NOTE | 2020-04-07 09:00 | NUR ---
ICU/RN PT HAS NEW TRACH ON THE VENT.FIO2-50%,PEEP-5.SAT O2-92-96%.V/S STABLE AFEBRILE.SEDATED ON VERSED AND FENTANYL DRIP.NO SEDATION VACATION PROVIDED.DUE TO UNSTABLE CONDITION PT SAT O2 DECREASE AND HR INCREASED ,RR INCREASED..NG TUBE INFUSING WITH GLUCERNA ,NO RESIDUAL NOTED.GENERALIZED EDEMA PRESENT.F/C DRAINING WITH RADHIKA URINE.ABDOMEN DISTENDED.BOWEL SOUNDS PRESENT.LOWER BACK WOUND COVERED WITH MEPILEX.SUCTION PROVIDED.BLOODY SECRETION NOTED.REPOSITION FOR COMFORT. DUE MEDS ARE GIVEN ORDERED.LABS REVIEW. NOTIFIED.CONTINUE MONITORING.
[2020-04-07 12:03] LABS: ABG BASE EXCESS 14.6 mmol/L; ABG OXYGEN SATURATION 87.9 % (92.0-98.5); ABG PO2 55.4 mmHg (75.0-100.0); AaDO2 216.7 mmHg; COHb 0.8 % (0.5-1.5); MetHb 0.1 % (0.0-1.5); O2Hb 87.1 % (94.0-97.0); PEEP,BG 5 cm H2O; SITE, ABG Right Radial; VT, ABG 450 mL
[2020-04-07] MEDS: LACTULOSE 10 G/15 ML UDC (PYXIS) PO PRN (12:28)
[2020-04-07] MEDS: GLUCERNA 1.2 1,000 ML BOTTLE NG PRN (15:44)
[2020-04-07] MEDS: IV NS 0.9% 250 ML IV PRN (15:45)
[2020-04-07] MEDS: APIXABAN 5 MG TABLET PO SCH (16:10)
--- NOTE | 2020-04-07 19:15 | NUR ---
SENIOR PRINCIPAL SOFTWARE ENGINEER. TEMPERATURE 100, TYLENOL GIVEN PER ORDERED
[2020-04-07] MEDS: ACETAMINOPHEN 650 MG/20.3 ML UDC NG PRN (19:22)
--- NOTE | 2020-04-07 20:01 | NUR ---
FUEL CELL DESIGNER. INITIAL ASSESSMENT. RECEIVED THE PT REST ON THE BED. TRACH TO VENT CONNECTED. TRACH SHILEY#8,AC 24,TV 450,FIO2 70%,PEEP 5. SAT 96%. NO ACUTE DISTRESS NOTED. OPERATIONS PLANT ATTENDANT SHOWING NSR. IV LT UPPER ARM PICC LINE FENTANYL 2MCG/KG/MIN,VERSED 4MG/H.FC PATENT. ZAC SOFT WRIST RESTRAINT CHECKED AND RELEASED. NO INJURY OR REDNESS NOTEDRT NARE NGT INTACT, GLUCERNA 60ML/H. HOB ELEVATED. WILL CONTINUE TO MONITOR VITALS.
[2020-04-08] VITALS (49 sets, daily range): BP systolic 100–148; BP diastolic 53–90
[2020-04-08] MEDS: METOPROLOL TARTRATE 50 MG TABLET PO SCH ×4 (00:50→17:30)
--- NOTE | 2020-04-08 04:00 | NUR ---
agricultural real estate agent, am care given. remaining same vent setting tolerated well. sat 94%, no acute distress noted, quality assurance monitor body showing nsr, iv lt upper arm picc line versed 4mg/h. ,fentanyl 2mcg/kg/min. hob elevated. ngt feeding tolerated well. fc patent. urine draining, afebrile. turn nad reposition q2h. will continue to monitor.
[2020-04-08 05:20] LABS: BASOPHILS % (AUTO) 0.2 % (0.0-2.0); EOSINOPHILS % (AUTO) 9.8 % (0.0-6.0); HEMATOCRIT 26 % (39-51); HEMOGLOBIN 8.1 g/dL (13.5-17.5); LYMPHOCYTES # (AUTO) 0.6 /CMM (0.8-4.8); LYMPHOCYTES % (AUTO) 8.9 % (20.0-44.0); MEAN CORPUSCULAR HGB CONC 32 g/dl (31.0-36.0); MEAN CORPUSCULAR VOLUME 93 fL (80-96); MONOCYTES # (AUTO) 0.6 /CMM (0.1-1.30); MONOCYTES % (AUTO) 7.7 % (2.0-12.0); NEUTROPHILS # (AUTO) 5.3 /CMM (1.8-8.9); NEUTROPHILS % (AUTO) 73.4 % (43.0-81.0); PLATELET COUNT (AUTO) 359 /CMM (150-450); RED BLOOD CELL COUNT(AUTO) 2.74 MIL/uL (4.5-6.0); WHITE BLOOD COUNT (AUTO) 7.3 K/uL (4.3-11.0)
[2020-04-08 05:41] LABS: ALANINE AMINOTRANSFERASE 33 U/L (12-78); ALKALINE PHOSPHATASE 58 U/L (46-116); ASPARTATE AMINOTRANSFERASE 26 U/L (15-37); BILIRUBIN,TOTAL 0.3 mg/dL (0.2-1.0); CALCIUM, SERUM 7.9 mg/dL (8.5-10.1); CHLORIDE 105 mmol/L (98-107); CREATININE 0.5 mg/dL (0.6-1.3); GLUCOSE 113 mg/dL (74-106); MAGNESIUM 2.3 mg/dL (1.8-2.4); PHOSPHORUS 3.2 mg/dL (2.5-4.9); POTASSIUM 4.4 mmol/L (3.5-5.1); SODIUM SERUM 146 mmol/L (136-145); TOTAL PROTEIN, SERUM 6.3 g/dL (6.4-8.2); UREA NITROGEN, BLOOD 21 mg/dL (7-18)
[2020-04-08 05:52] LABS: ALBUMIN 1.4 g/dL (3.4-5.0); CARBON DIOXIDE 43 mmol/L (21-32)
[2020-04-08 06:49] LABS: ABG BASE EXCESS 14.3 mmol/L; ABG OXYGEN SATURATION 89.4 % (92.0-98.5); ABG PCO2 74.7 mmHg (35.0-45.0); ABG PH 7.367 (7.350-7.450); ABG PO2 57.7 mmHg (75.0-100.0); AaDO2 251.4 mmHg; COHb 1.3 % (0.5-1.5); MetHb 0.1 % (0.0-1.5); O2Hb 88.1 % (94.0-97.0); PEEP,BG 5 cm H2O; SITE, ABG Right Radial; VENT MODE, BG ac 24 450 55% +5; VT, ABG 450 mL
--- NOTE | 2020-04-08 06:58 | NUR ---
travel registered nurse nicu. no new changes, turn and reposition tolerated well
--- NOTE | 2020-04-08 08:00 | NUR ---
RN NOTES RECEIVED ON TRACH / VENT DEPENDENT AT THIS TIME. TRACH SHILEY#8,AC 24,TV 465, FIO2 54 %,PEEP 5. SAT 96%. NO ACUTE RESPIRATORY DISTRESS NOTED. WAITANGI TRIBUNAL MEMBER SHOWING NSR 90. IV LT UPPER ARM PICC LINE FENTANYL 2 MCG/KG/MIN,VERSED 4MG/HR. PATIENT ON ZAC SOFT WRIST RESTRAINT CHECKED AND RELEASED Q 2HR, FOR CIRCULATION. RUNNING GLUCERNA 1.2 60 CC/HR HR NO RESIDUAL, PLACEMENT ALSO CHECKED NGT. JEFFERSON DRAINING BY GRAVITY, ASSIST TURN AND REPOSTION Q 2 HR, HOB ELEVATED FOR ASPIRATION PRECAUTION. CALL LIGHT WITHIN TO REACH. WILL MONITORING.
[2020-04-08] MEDS: CHOLECALCIFEROL 1,000 UNIT TABLET (VIT D3) PO SCH (08:56)
[2020-04-08] MEDS: FINASTERIDE (5 MG) 5 MG TABLET PO SCH (08:56)
[2020-04-08] MEDS: PANTOPRAZOLE 40 MG VIAL IV SCH ×2 (08:56→20:25)
[2020-04-08] MEDS: TAMSULOSIN 0.4 MG CAP.SR.24H PO SCH (08:56)
[2020-04-08] MEDS: DOCUSATE SODIUM LIQ 100 MG/10 ML UDC NG SCH ×2 (08:56→20:25)
[2020-04-08] MEDS: APIXABAN 5 MG TABLET PO SCH ×2 (08:57→17:29)
[2020-04-08] MEDS: ZINC SULFATE 220 MG CAPSULE PO SCH (08:57)
[2020-04-08] MEDS: PROSOURCE / PROSTAT (PYXIS) 30 ML UDC GT SCH ×2 (09:00→17:26)
[2020-04-08] MEDS: FENTANYL CITRAT IV 2,500 MCG in IV NS 0.9% 200 ML IV PRN ×2 (09:01→21:25)
[2020-04-08] MEDS: CLOTRIMAZOLE 1% 15 GM TUBE TP SCH ×2 (09:05→17:25)
[2020-04-08] MEDS ORDERED: APIXABAN 5 MG TABLET PO SCH (12:30)
--- NOTE | 2020-04-08 12:57 | NUR ---
rn notes increase PEEP to [address] Barrera, bacuse of hr increased to 126, administered scheduled medication, flashed NGT 250 ml of water.
[2020-04-08] MEDS: LACTULOSE 10 G/15 ML UDC (PYXIS) PO PRN (13:06)
--- NOTE | 2020-04-08 13:14 | NUR ---
rn notes administered lactulose 15 ml via ngt for constipation.
[2020-04-08] MEDS: GLUCERNA 1.2 1,000 ML BOTTLE NG PRN (14:54)
--- NOTE | 2020-04-08 18:39 | NUR ---
RN NOTES PATIENT V/S WNL AT THIS TIME, AFTER INCREASED SEDATION FENTANYL 3MCG/KG/HR, AND VERSED 6 MG/ML/HR. PATIENT PM CARE DONE, APPLIED Z-GUARD, AND MEPILEX BILATERAL BUTTOCKS WOUND , ASSIST TURN AND REPOSTION Q 2 HR, ADMINISTERED SCHEDULED MEDICATION,. RUNNING GLUCERNA 1.2 60 CC/HR TOLERATING WELL. FLASHED 250 ML/ OF WATER. CALL LIGHT WITH IN TO TEACH. ENDORSED ONCOMING NURSE FOLLOW PLAN OF CARE.
[2020-04-08] MEDS: MIDAZOLAM HCL 100 MG in IV NS 0.9% 80 ML IV PRN (20:24)
--- NOTE | 2020-04-08 21:40 | NUR ---
RN NOTES FIO2 TITRATE TO 55% BY RT SATURATION 96% NO RESP DISTRESS WILL CONT. TO MONITOR.
[2020-04-08] MEDS: IV NS 0.9% 250 ML IV PRN (22:22)
[2020-04-09] VITALS (88 sets, daily range): BP systolic 30–189; BP diastolic 19–103
[2020-04-09] MEDS: METOPROLOL TARTRATE 50 MG TABLET PO SCH ×5 (01:26→18:48)
--- NOTE | 2020-04-09 02:30 | NUR ---
RN NOTES BEDBATH DONE TOLERATED WELL. SATURATION REMAINED >92%. AFEBRILE. CONT. TO TURN AND REPOSITION Q2H AND PRN PT COMFORTABLE.
[2020-04-09 05:04] LABS: BASOPHILS % (AUTO) 0.1 % (0.0-2.0); EOSINOPHILS % (AUTO) 10.3 % (0.0-6.0); HEMATOCRIT 25 % (39-51); HEMOGLOBIN 7.9 g/dL (13.5-17.5); LYMPHOCYTES # (AUTO) 0.7 /CMM (0.8-4.8); LYMPHOCYTES % (AUTO) 8.3 % (20.0-44.0); MEAN CORPUSCULAR HGB CONC 32 g/dl (31.0-36.0); MEAN CORPUSCULAR VOLUME 93 fL (80-96); MONOCYTES # (AUTO) 0.6 /CMM (0.1-1.30); MONOCYTES % (AUTO) 7.5 % (2.0-12.0); NEUTROPHILS # (AUTO) 5.8 /CMM (1.8-8.9); NEUTROPHILS % (AUTO) 73.8 % (43.0-81.0); PLATELET COUNT (AUTO) 348 /CMM (150-450); RED BLOOD CELL COUNT(AUTO) 2.66 MIL/uL (4.5-6.0); WHITE BLOOD COUNT (AUTO) 7.9 K/uL (4.3-11.0)
[2020-04-09 05:05] LABS: CALCIUM, SERUM 7.6 mg/dL (8.5-10.1); CREATININE 0.6 mg/dL (0.6-1.3); MAGNESIUM 1.8 mg/dL (1.8-2.4); PHOSPHORUS 3.7 mg/dL (2.5-4.9); POTASSIUM 4.3 mmol/L (3.5-5.1)
--- NOTE | 2020-04-09 07:30 | NUR ---
RN NOTES TRACH AND VENT TOLERATED WELL. NSR ON TELE MONITOR WITH EPISODE OF SINUS TACH. AFEBRILE. TMAX 99.4 DEGREE FARENHEIGHT. LAST TEMP 98.4. CONTINUE ON SEDATION FENTANYL AND VERSED TITRATED PROTOCOL ORDERED. NO SIGNS OF DISTRESS. KEPT PT CLEAN AND DRY. TURNED AND REPOSITIONED Q2H AND PRN PT COMFORTABLE. ALL IV ATB ADMINISTERED AND TOLERATED WELL. KEPT PT CLEAN AND DRY. WILL CONTINUE POC.
--- NOTE | 2020-04-09 07:57 | NUR ---
WOUND CARE FOLLOW UP: REVIEWED CHART, NURSING DOCUMENTATION AND PHOTOS. SPOKE WITH NURSING STAFF. PER PHOTOS AND RN REPORT, LEFT EAR DEEP TISSUE INJURY IS NOW RESOLVED. SACRAL DEEP TISSUE INJURY IS NOW IN EVOLUTION. RECOMMENDATIONS MADE FOR SKIN PROTECTION AND WOUND CARE DISCUSSED WITH NURSING STAFF. TREATMENT ORDERS UPDATED. MD IN AGREEMENT WITH PLAN OF CARE. PT IS ON REX ISOFLEX LOW AIRLOSS BED.
--- NOTE | 2020-04-09 08:01 | NUR ---
RN NOTES Endotracheal tube is in satisfactory position at the thoracic inlet. Enteric tube extends into the left abdomen and beyond the field of view. Left PICC positioned at the upper SVC. Generalized interstitial prominence and heterogeneous air space opacity throughout both lungs. Mediastinal contours are unchanged. Heterogeneous bilateral infiltrates unchanged. Support apparatus as detailed above. seen patient wound nurse new order for openings of sacral DTI in evolution. clen with ns, pat dry, and apply oil emulsion to open area, and cover abd pad , change position q2 hr.
[2020-04-09] MEDS: TAMSULOSIN 0.4 MG CAP.SR.24H PO SCH (09:15)
[2020-04-09] MEDS: CHOLECALCIFEROL 1,000 UNIT TABLET (VIT D3) PO SCH (09:15)
[2020-04-09] MEDS: PANTOPRAZOLE 40 MG VIAL IV SCH ×2 (09:15→20:53)
[2020-04-09] MEDS: DOCUSATE SODIUM LIQ 100 MG/10 ML UDC NG SCH ×2 (09:15→20:53)
[2020-04-09] MEDS: FINASTERIDE (5 MG) 5 MG TABLET PO SCH (09:15)
[2020-04-09] MEDS: APIXABAN 5 MG TABLET PO SCH ×2 (09:16→17:07)
[2020-04-09] MEDS: ZINC SULFATE 220 MG CAPSULE PO SCH (09:16)
[2020-04-09] MEDS: FENTANYL CITRAT IV 2,500 MCG in IV NS 0.9% 200 ML IV PRN ×2 (09:18→20:25)
[2020-04-09] MEDS: PROPOFOL 100 ML IV PRN ×7 (09:22→22:25)
[2020-04-09] MEDS: GLUCERNA 1.2 1,000 ML BOTTLE NG PRN (09:39)
[2020-04-09] MEDS: CLOTRIMAZOLE 1% 15 GM TUBE TP SCH ×2 (09:45→17:07)
[2020-04-09] MEDS: PROSOURCE / PROSTAT (PYXIS) 30 ML UDC GT SCH ×2 (09:45→17:08)
[2020-04-09] MEDS: NOREPINEPHRINE 8 MG in IV NS 0.9% 242 ML IV PRN ×2 (11:05→15:38)
[2020-04-09 14:55] LABS: C-REACTIVE PROTEIN 11.7 mg/dL (0.0-0.9)
[2020-04-09] MEDS: LACTULOSE 10 G/15 ML UDC (PYXIS) PO PRN (17:09)
--- NOTE | 2020-04-09 17:09 | NUR ---
rn notes am care done, suction, , mouth care, wound care done , held metoprolol because of low bp 82/42, administered scheduled medication and lactulose 20 mg vis ngt. keep hob elevated, assist turn and reposition q 2 hr.
--- NOTE | 2020-04-09 18:45 | NUR ---
rn notes ashley note mentioned held metoprolol , but because of bp increase 175/71 administered metoprolol 25 mg. Flashed ngt with 250 ml of water. infusing Levophed 0.2 mcg/kg/hr, Diprivan 90mcg/kg/hr, and fentanyl 3 mcg/kg/hr . intact. stop versed. assist turn and reposition. Frank draining by gravity. endorsed oncoming nurse follow plan of care.
[2020-04-09] MEDS: NOREPINEPHRINE 32 MG in IV NS 0.9% 218 ML IV PRN (20:38)
[2020-04-09] MEDS: IV NS 0.9% 250 ML IV PRN (21:54)
[2020-04-10] VITALS (99 sets, daily range): BP systolic 75–140; BP diastolic 36–86
[2020-04-10] MEDS: METOPROLOL TARTRATE 50 MG TABLET PO SCH ×4 (00:56→18:00)
[2020-04-10] MEDS: PROPOFOL 100 ML IV PRN ×11 (00:57→23:39)
[2020-04-10 04:26] LABS: CALCIUM, SERUM 7.6 mg/dL (8.5-10.1); CREATININE 0.6 mg/dL (0.6-1.3); MAGNESIUM 1.8 mg/dL (1.8-2.4); PHOSPHORUS 4.6 mg/dL (2.5-4.9); POTASSIUM 4.5 mmol/L (3.5-5.1)
[2020-04-10 05:05] LABS: BASOPHILS % (AUTO) 0.3 % (0.0-2.0); EOSINOPHILS % (AUTO) 9.9 % (0.0-6.0); HEMATOCRIT 26 % (39-51); HEMOGLOBIN 8.2 g/dL (13.5-17.5); LYMPHOCYTES # (AUTO) 0.6 /CMM (0.8-4.8); LYMPHOCYTES % (AUTO) 5.2 % (20.0-44.0); MEAN CORPUSCULAR HGB CONC 32 g/dl (31.0-36.0); MEAN CORPUSCULAR VOLUME 94 fL (80-96); MONOCYTES # (AUTO) 0.6 /CMM (0.1-1.30); MONOCYTES % (AUTO) 5.5 % (2.0-12.0); NEUTROPHILS # (AUTO) 8.8 /CMM (1.8-8.9); NEUTROPHILS % (AUTO) 79.1 % (43.0-81.0); PLATELET COUNT (AUTO) 380 /CMM (150-450); WHITE BLOOD COUNT (AUTO) 11.2 K/uL (4.3-11.0)
[2020-04-10] MEDS: FENTANYL CITRAT IV 2,500 MCG in IV NS 0.9% 200 ML IV PRN ×2 (06:17→16:16)
[2020-04-10] MEDS: GLUCERNA 1.2 1,000 ML BOTTLE NG PRN ×2 (06:48→21:55)
--- NOTE | 2020-04-10 07:30 | NUR ---
RN NOTES PATIENT TRACH AND VENT OF FIO2 65% AND PEEP 8 TOLERATED WELL CONTINUE ON SEDATION PROPOFOL AND FENTANYL TOLERATED WELL. LEVOPHED TITRATED ORDERED TO KEEP SBP >90 MMHG. NGT REMAINED INTACT AND PATENT. TURN AND REPOSITION Q2H AND PATIENT COMFORTABLE. BEDBATH DONE . ORAL CARE PROVIDED. KEPT PT CLEAN AND DRY. WILL CONT TO MONITOR.
[2020-04-10] MEDS: NOREPINEPHRINE 32 MG in IV NS 0.9% 218 ML IV PRN ×3 (07:42→23:42)
[2020-04-10] MEDS: DOCUSATE SODIUM LIQ 100 MG/10 ML UDC NG SCH ×2 (08:18→21:58)
[2020-04-10] MEDS: ZINC SULFATE 220 MG CAPSULE PO SCH (08:18)
[2020-04-10] MEDS: TAMSULOSIN 0.4 MG CAP.SR.24H PO SCH (08:18)
[2020-04-10] MEDS: FINASTERIDE (5 MG) 5 MG TABLET PO SCH (08:18)
[2020-04-10] MEDS: PANTOPRAZOLE 40 MG VIAL IV SCH ×2 (08:18→21:55)
[2020-04-10] MEDS: CHOLECALCIFEROL 1,000 UNIT TABLET (VIT D3) PO SCH (08:18)
[2020-04-10] MEDS: APIXABAN 5 MG TABLET PO SCH (08:18)
[2020-04-10] MEDS: CLOTRIMAZOLE 1% 15 GM TUBE TP SCH ×2 (08:19→16:43)
--- NOTE | 2020-04-10 08:19 | NUR ---
placed into 50% fio2 per dr. red Addendum: 04/10/20 at 0819 by MIKAL ROSENBAUM RT Amended: Links added.
[2020-04-10] MEDS: PROSOURCE / PROSTAT (PYXIS) 30 ML UDC GT SCH ×2 (08:22→16:42)
--- NOTE | 2020-04-10 09:00 | NUR ---
ICU/RN PT IS NEW TRACH ON THE VENT AC MODE,FIO2-65%,PEEP-8.SAT O2-94-95%.PT IS SEDATED ON DIPRIVAN AND FENTANYL DRIPS ON LEVOPHED DRIP .AFEBRILE,NO PAIN REPORTED AT THIS TIME.NG TUBE INFUSING WITH GLUCERNA NO RESIDUAL NOTED.F/C DRAINING WITH RADHIKA URINE.PT HAS LEFT UPPER ARM PICC LINE. LEFT ARM IS SWOLLEN. GENERALIZED EDEMA PRESENT .LOWER BACK WOUND COVERED WITH DRESSING.DUE MEDS ARE GIVEN ORDERED.LABS REVIEW.SUCTION PROVIDED.REPOSITION FOR COMFORT.
--- NOTE | 2020-04-10 09:16 | NUR ---
INCREASED FIO2 FROM 50 - 55% DUE TO 89% SPO2. Addendum: 04/10/20 at 0917 by MIKAL ROSENBAUM RT Amended: Links added.
[2020-04-10] MEDS ORDERED: LORAZEPAM INJ 2 MG/ML VIAL IV PRN (12:00)
--- NOTE | 2020-04-10 12:00 | NUR ---
ICU/RN UNABLE TO DECREASED FENTANYL DOWN .PT IS TACHYCARDIC AND TACHYPNEIC,BP DECREASED .MD NOTIFIED .ATIVAN ORDERED.
[2020-04-10] MEDS: ACETAMINOPHEN 650 MG/20.3 ML UDC NG PRN (15:09)
--- NOTE | 2020-04-10 18:00 | NUR ---
ICU/RN PM CARE PROVIDED.DUE MEDS ARE GIVEN ORDERED.PT PLACED ON [employer] MATRASS.WOUND DRESSING DONE ORDERED.PT IS VERY WEAK .SAT O2 DECREASED ,BP DECREASED,HR INCREASED .PT UNABLE TO TOLERATE ANY ACTIVITIES AT THIS TIME.CONTINUE MONITORING.
[2020-04-10] MEDS ORDERED: VANCOMYCIN 1.5 GM in IV D5W 500 ML IV ONE (21:00)
[2020-04-10] MEDS ORDERED: MEROPENEM 500 MG in IV NS 0.9% 50 ML IV SCH (21:00)
[2020-04-10] MEDS: ENOXAPARIN SODIUM 80 MG/0.8 ML DISP.SYRIN SQ SCH (21:56)
[2020-04-10] MEDS ORDERED: MEROPENEM 1 G in IV NS 0.9% 100 ML IV ONE (22:00)
[2020-04-11] VITALS (80 sets, daily range): BP systolic 36–127; BP diastolic 23–66
[2020-04-11] MEDS: METOPROLOL TARTRATE 50 MG TABLET PO SCH ×6 (00:30→23:21)
[2020-04-11] MEDS: FENTANYL CITRAT IV 2,500 MCG in IV NS 0.9% 200 ML IV PRN ×3 (01:47→20:37)
[2020-04-11] MEDS: PROPOFOL 100 ML IV PRN ×8 (01:57→18:34)
--- NOTE | 2020-04-11 04:00 | NUR ---
RN NOTES PATIENT SATURATION 98%. BEDBATH DONE TOLERATED WELL. TURNED AND REPOSITION CONTINUE TO PROVIDED, WOUND CARE PROVIDED TX DONE ORDERED.
[2020-04-11 04:28] LABS: BASOPHILS % (AUTO) 0.4 % (0.0-2.0); EOSINOPHILS % (AUTO) 10.1 % (0.0-6.0); HEMATOCRIT 24 % (39-51); HEMOGLOBIN 7.7 g/dL (13.5-17.5); LYMPHOCYTES # (AUTO) 0.8 /CMM (0.8-4.8); LYMPHOCYTES % (AUTO) 7.1 % (20.0-44.0); MEAN CORPUSCULAR HGB CONC 33 g/dl (31.0-36.0); MEAN CORPUSCULAR VOLUME 94 fL (80-96); MONOCYTES # (AUTO) 0.5 /CMM (0.1-1.30); MONOCYTES % (AUTO) 4.6 % (2.0-12.0); NEUTROPHILS # (AUTO) 8.4 /CMM (1.8-8.9); NEUTROPHILS % (AUTO) 77.8 % (43.0-81.0); PLATELET COUNT (AUTO) 330 /CMM (150-450); WHITE BLOOD COUNT (AUTO) 10.8 K/uL (4.3-11.0)
[2020-04-11 04:43] LABS: CALCIUM, SERUM 7.2 mg/dL (8.5-10.1); CREATININE 0.7 mg/dL (0.6-1.3); POTASSIUM 5.3 mmol/L (3.5-5.1)
--- NOTE | 2020-04-11 05:00 | NUR ---
RN NOTES FIO2 TITRATED TO 80 % PATIENT TOLERATED WELL SATURATION AT THIS TIME 95% WILL CONTINUE TO MONITOR.
[2020-04-11 05:16] LABS: ABG BASE EXCESS 12.4 mmol/L; ABG OXYGEN SATURATION 98.2 % (92.0-98.5); ABG PCO2 99.7 mmHg (35.0-45.0); ABG PH 7.242 (7.350-7.450); ABG PO2 122.8 mmHg (75.0-100.0); AaDO2 416.7 mmHg; COHb 0.7 % (0.5-1.5); MetHb 0.2 % (0.0-1.5); O2Hb 97.3 % (94.0-97.0); PEEP,BG 8 cm H2O; SITE, ABG Right Brachial; VENT MODE, BG ac 24 450 90% +8; VT, ABG 450 mL
[2020-04-11] MEDS: MEROPENEM 1 G in IV NS 0.9% 100 ML IV SCH ×3 (06:23→22:27)
[2020-04-11] MEDS: IV NS 0.9% 250 ML IV PRN (07:58)
[2020-04-11] MEDS: NOREPINEPHRINE 32 MG in IV NS 0.9% 218 ML IV PRN ×3 (07:59→18:53)
--- NOTE | 2020-04-11 08:00 | NUR ---
ICU/RN PT IS INTUBATED ON THE VENT AC MODE.,FIO2-80%,SAT O2-94%.PT IS SEDATED ON PROPOFOL AND FENTANYL.ON LEVOPHED DRIP. AFEBRILE.LEFT UPPER ARM PICC LINE,ARM SWOLLEN. AWARE, WAITING FOR DVT TEST.NG TUBE INFUSING WITH GLUCERNA. 40 ML OF RESIDUAL NOTED.F/C IN PLACE DRAINING WITH YELLOW URINE.LOWER BACK WOUND COVERED WITH MEPILEX.PT IS ON [employer] MATRASS.GENERALIZED EDEMA PRESENT.ABG DONE DR JIMENEZ NOTIFIED.NEW ORDERS RELIEVED.LABS REVIEW.K-5.3.MD AWARE. H/H-7.7.DR RODRIGES ORDERED [address] JIMENEZ HOLD BLOOD TRANSFUSION TODAY. DUE MEDS ARE GIVEN ORDERED .SUCTION PROVIDED.REPOSITION FOR COMFORT.PT IS VERY SENSITIVE TO ANY MOVEMENTS.HR INCREASED ,RR INCREASED. CONTINUE MONITORING.
--- NOTE | 2020-04-11 08:19 | NUR ---
RN NOTES PATIENT WITH TRACH CONNECTED TO VENT SETTING AC 24 TV 550 FIO2 80% PEEP 8. SATURATION ON 93-95%. NSR ON TELE MONITOR. FIO2 TITRATED PATIENT TOLERANCE. AFEBRILE. TMAX 99.2 LAST TEMP THIS SHIFT WAS 98.6. CONTINUE ON IV FENTANYL, LEVOPHED AND PROPOFOL TITRATED PROTOCOL AND MD ORDERED. TURNED AND REPOSITION Q2H AND PRN PT COMFORTABLE. PATIENT IS TOLERATED LEFT SIDED POSITION MORE THAN RIGHT SIDE. SUCTION ORALLY AND ROSA TRACH. ALL DUE MEDICINE ADMINISTERED TROUGH TUBE TOLERATED BED KEPT ELEVATED. WITH MINIMAL RESIDUAL. BM X 1 WITH SMALL PASTY BLACK COLOR URINE. KEPT PT CLEAN AND DRY. BEDBATH TOLERATED . ENDORSED CONTINUITY OF CARE TO AM NURSE.
[2020-04-11] MEDS: PANTOPRAZOLE 40 MG VIAL IV SCH ×2 (08:23→22:15)
[2020-04-11] MEDS: ZINC SULFATE 220 MG CAPSULE PO SCH (08:23)
[2020-04-11] MEDS: CHOLECALCIFEROL 1,000 UNIT TABLET (VIT D3) PO SCH (08:23)
[2020-04-11] MEDS: TAMSULOSIN 0.4 MG CAP.SR.24H PO SCH (08:23)
[2020-04-11] MEDS: DOCUSATE SODIUM LIQ 100 MG/10 ML UDC NG SCH ×2 (08:23→22:28)
[2020-04-11] MEDS: VANCOMYCIN 1 GM in IV D5W 250 ML IV SCH ×2 (08:24→22:15)
[2020-04-11] MEDS: CLOTRIMAZOLE 1% 15 GM TUBE TP SCH ×2 (08:25→17:40)
[2020-04-11] MEDS: ENOXAPARIN SODIUM 80 MG/0.8 ML DISP.SYRIN SQ SCH ×2 (08:25→22:27)
[2020-04-11] MEDS: FINASTERIDE (5 MG) 5 MG TABLET PO SCH (08:26)
[2020-04-11] MEDS: PROSOURCE / PROSTAT (PYXIS) 30 ML UDC GT SCH ×2 (08:27→17:41)
[2020-04-11] MEDS: ACETAMINOPHEN 650 MG/20.3 ML UDC NG PRN ×2 (09:31→19:31)
--- NOTE | 2020-04-11 12:30 | NUR ---
ICU/RN TRIGLYCERIDES LEVEL 750.MD NOTIFIED .NEW ORDERS RECEIVED.WEAN OFF DIPRIVAN AND START PRECEDEX.
--- NOTE | 2020-04-11 15:10 | NUR ---
ICU/RN VENOUS DOPPLER TEST OF UPPER EXTREMITIES DONE . PT IS POSITIVE FOR DVT ON LEFT CEPHALIC VEIN.MD NOTIFIED.PT IS ON LOVENOX BID.
--- NOTE | 2020-04-11 16:10 | NUR ---
ICU/RN PM CARE PROVIDED.WOUND DRESSING DONE ORDERED.PT IS PLACED ON 100% FIO2.SAT O2-93%.DUE MEDS ARE GIVEN ORDERED.
[2020-04-11] MEDS: PRECEDEX 400 MCG/100 ML BOTTLE 100 ML IV PRN ×2 (17:40→22:37)
--- NOTE | 2020-04-11 17:40 | NUR ---
ICU/RN PRECEDEX STARTED ORDERED.
[2020-04-11] MEDS: PHENYLEPHRINE 50 MG in IV NS 0.9% 245 ML IV PRN (18:19)
--- NOTE | 2020-04-11 18:20 | NUR ---
ICU/RN BP DECREASED.LEVOPHED IS ON MAX DOSE.NEOSYNEPHRINE STARTED.PT HR-130 BPM.PRECEDEX INCREASED BY PROTOCOL.
--- NOTE | 2020-04-11 19:00 | NUR ---
ICU/RN REPORT GIVEN TO TRUE/RN.PT IS ON CRITICAL CONDITION.ON 2 PRESSORS .UNABLE TO WEAN FROM PROPOFOL. ON FENTANYL DRIP.ON DIPRIVAN AND PRECEDEX DRIP AT THIS TIME.CONTINUE MONITORING.
--- NOTE | 2020-04-11 19:00 | NUR ---
LOCOMOTIVE CRANE ENGINEER. RECEIVED THE PT REST ON THE BED. ORALLY INTUBATED. PT IS VERY UNSTABLE, HEART RATE IS 160.FIO2 100%, SAT 90%. IV LT UPPER ARM PICC LINE. PRECEDEX0.4MCG, FENTANYL 3MCG/KG/MIN, DIPRIVAN 90MCG/KG/MIN,FC PATENT, URINE DRAINING, HOB ELEVATED. RT NARE NGT INTACT. ZAC LOWER AND UPPER EXTREMITY SWELLING 3+. TEMPERATURE 99.9. TYLENOL GIVEN PER ORDERED. WILL CONTINUE TO MONITOR VITALS.
[2020-04-12] VITALS (31 sets, daily range): BP systolic 45–124; BP diastolic 21–65
--- NOTE | 2020-04-12 00:01 | NUR ---
PLACED PT WITH ORAL AIRWAYS PER FAMILY MEMBER REQUEST, ALLISON MCINTOSH AWARE.
[2020-04-12] MEDS: PROPOFOL 100 ML IV PRN (02:22)
[2020-04-12] MEDS: NOREPINEPHRINE 32 MG in IV NS 0.9% 218 ML IV PRN (02:50)
[2020-04-12] MEDS ORDERED: PHENYLEPHRINE 10 MG/ML VIAL ONE ×2 (03:29→06:17)
[2020-04-12] MEDS: PHENYLEPHRINE 50 MG in IV NS 0.9% 245 ML IV PRN (03:36)
[2020-04-12 04:32] LABS: BASOPHILS # (AUTO) 0.1 /CMM (0.0-0.2); BASOPHILS % (AUTO) 0.6 % (0.0-2.0); EOSINOPHILS % (AUTO) 3.3 % (0.0-6.0); HEMATOCRIT 24 % (39-51); HEMOGLOBIN 7.7 g/dL (13.5-17.5); LYMPHOCYTES # (AUTO) 0.9 /CMM (0.8-4.8); LYMPHOCYTES % (AUTO) 5.8 % (20.0-44.0); MEAN CORPUSCULAR HGB CONC 33 g/dl (31.0-36.0); MEAN CORPUSCULAR VOLUME 94 fL (80-96); MONOCYTES # (AUTO) 0.5 /CMM (0.1-1.30); MONOCYTES % (AUTO) 3.1 % (2.0-12.0); NEUTROPHILS # (AUTO) 13.4 /CMM (1.8-8.9); NEUTROPHILS % (AUTO) 87.2 % (43.0-81.0); PLATELET COUNT (AUTO) 346 /CMM (150-450); RED BLOOD CELL COUNT(AUTO) 2.54 MIL/uL (4.5-6.0); WHITE BLOOD COUNT (AUTO) 15.4 K/uL (4.3-11.0)
[2020-04-12 04:52] LABS: CREATININE 0.8 mg/dL (0.6-1.3); POTASSIUM 5.3 mmol/L (3.5-5.1)
[2020-04-12] MEDS: ACETAMINOPHEN 650 MG/20.3 ML UDC NG PRN (04:54)
[2020-04-12] MEDS: PRECEDEX 400 MCG/100 ML BOTTLE 100 ML IV PRN (04:54)
[2020-04-12] MEDS: MEROPENEM 1 G in IV NS 0.9% 100 ML IV SCH (05:06)
[2020-04-12] MEDS: METOPROLOL TARTRATE 50 MG TABLET PO SCH (05:08)
[2020-04-12] MEDS: FENTANYL CITRAT IV 2,500 MCG in IV NS 0.9% 200 ML IV PRN (06:47)
[2020-04-12] MEDS: ENOXAPARIN SODIUM 80 MG/0.8 ML DISP.SYRIN SQ SCH (07:29)
--- NOTE | 2020-04-12 07:31 | NUR ---
NPO FOR GT PLACEMENT
[2020-04-12] MEDS ORDERED: VASOPRESSIN INJ 40 UNIT in IV NS 0.9% 38 ML IV PRN (08:30)
--- NOTE | 2020-04-12 08:30 | NUR ---
RN NOTES PT HAS LOW BP , LOW O2 SAT , THIRD PRESSORS [facility],
--- NOTE | 2020-04-12 08:32 | NUR ---
RN NOTES ASYSTOLE NOTED ON MONITOR, PT HAS NO PULSE , NO BP , O2 SAT IN LOW 60'S , CODE BLUE INITIATED. CODE BLUE SUCCESSFUL , CONTINUE TO MONITOR . PLEASE SEE CODE BLUE SHEET.
--- NOTE | 2020-04-12 08:45 | NUR ---
RN NOTES ASYSTOLE NOTED , PT HAS NO PULSE , NO BP , NO O2 SAT , CODE BLUE INITIATED . PLEASE SEE CODE BLUE SHEET .
--- NOTE | 2020-04-12 08:58 | NUR ---
RN NOTES PT , CODE BLUE UNSUCCESSFUL, DR JIMENEZ AT THE BEDSIDE RUNNING THE CODE BLUE PT PRONOUNCED AT 08:[address] JIMENEZ, FAMILY AWARE , SIGNAL WORKER HELPER NOTIFED.
[2020-04-12] MEDS ORDERED: HYDROCORTISONE SOD SUCCINATE 100 MG/2 ML VIAL IV SCH (09:00)
[2020-04-12] MEDS ORDERED: EPINEPHRINE (1:1000) 5 MG in IV NS 0.9% 245 ML IV PRN ×4 (09:00)
--- NOTE | 2020-04-12 10:00 | NUR ---
RN NOTES POST MORTEM CARE DONE .
[2020-04-12] MEDS ORDERED: DEXTROSE 50%-WATER 50 ML DISP.SYRIN IV ONE (11:23)
[2020-04-12] MEDS ORDERED: CALCIUM CHLORIDE 1,000 MG/10 ML DISP.SYRIN IV ONE (11:23)
[2020-04-12] MEDS ORDERED: SODIUM BICARBONATE SYR 50 MEQ/50 ML DISP.SYRIN IV ONE (11:23)
[2020-04-12] MEDS ORDERED: EPINEPHRINE (1:10,000) SYRINGE 1 MG/10 ML DISP.SYRIN IVP ONE (11:23)
== END 2020-04-12 08:58 | disposition expired | DRG 4 ==
LOC: ER 08:09 → ICUOV 10:03 → ICU 03-13 06:38
PROVIDERS: ADMIT Student in an Organized Health Care Education/Training Program; ATTEND Nurse Practitioner Acute Care
PROC: 0BH18EZ Insertion of Endotracheal Airway into Trachea, Via Natural or Artificial Opening Endoscopic (ICD-10-PCS; principal; 2020-03-12)
PROC: 5A1955Z Respiratory Ventilation, Greater than 96 Consecutive Hours (ICD-10-PCS; 2020-03-12)
PROC: XW033E5 Introduction of Remdesivir Anti-infective into Peripheral Vein, Percutaneous Approach, New Technology Group 5 (ICD-10-PCS; 2020-03-12)
PROC: XW13325 Transfusion of Convalescent Plasma (Nonautologous) into Peripheral Vein, Percutaneous Approach, New Technology Group 5 (ICD-10-PCS; 2020-03-12)
PROC: 05HY33Z Insertion of Infusion Device into Upper Vein, Percutaneous Approach (ICD-10-PCS; 2020-03-12)
PROC: 0DB58ZX Excision of Esophagus, Via Natural or Artificial Opening Endoscopic, Diagnostic (ICD-10-PCS; 2020-03-23)
PROC: 0B113F4 Bypass Trachea to Cutaneous with Tracheostomy Device, Percutaneous Approach (ICD-10-PCS; 2020-04-06)
PROC: 0BJ08ZZ Inspection of Tracheobronchial Tree, Via Natural or Artificial Opening Endoscopic (ICD-10-PCS; 2020-04-06)
PROC: 5A2204Z Restoration of Cardiac Rhythm, Single (ICD-10-PCS; 2020-04-12)
DX: A41.89 Other specified sepsis (principal); U07.1 COVID-19; J12.82 Pneumonia due to coronavirus disease 2019; N17.0 Acute kidney failure with tubular necrosis; J96.01 Acute respiratory failure with hypoxia; R65.21 Severe sepsis with septic shock; J96.02 Acute respiratory failure with hypercapnia; I21.A1 Myocardial infarction type 2; K72.00 Acute and subacute hepatic failure without coma; E87.1 Hypo-osmolality and hyponatremia; E44.0 Moderate protein-calorie malnutrition; E87.2 Acidosis; B37.81 Candidal esophagitis; D68.59 Other primary thrombophilia; I50.30 Unspecified diastolic (congestive) heart failure; I47.2 Ventricular tachycardia; I48.92 Unspecified atrial flutter; K56.7 Ileus, unspecified; E87.0 Hyperosmolality and hypernatremia; I82.622 Acute embolism and thrombosis of deep veins of left upper extremity; E78.1 Pure hyperglyceridemia; K29.70 Gastritis, unspecified, without bleeding; N40.0 Benign prostatic hyperplasia without lower urinary tract symptoms; Z79.82 Long term (current) use of aspirin; I48.91 Unspecified atrial fibrillation; E86.0 Dehydration; E86.1 Hypovolemia; I11.0 Hypertensive heart disease with heart failure; I67.2 Cerebral atherosclerosis; N13.9 Obstructive and reflux uropathy, unspecified; I46.9 Cardiac arrest, cause unspecified; I08.0 Rheumatic disorders of both mitral and aortic valves; Z79.01 Long term (current) use of anticoagulants; Z87.891 Personal history of nicotine dependence; Z74.09 Other reduced mobility
CPT/HCPCS: 31720; 36415; 36569; 36600; 70450-TC; 71045-TC; 74018; 76705-TC; 80048-TC; 80053-TC; 80061-TC; 80076-TC; 82140-TC; 82272-TC; 82533; 82550-TC; 82728-TC; 82803-TC; 82962-TC; 83605-TC; 83615-TC; 83735-TC; 83880; 84100-TC; 84132-TC; 84439-TC; 84443-TC; 84478-TC; 84484-TC; 85025-TC; 85378-TC; 85610-TC; 85730-TC; 86140-TC; 86850-TC; 87040-TC; 87070-TC; 87081-TC; 87086-TC; 87186-TC; 88305-TC; 88312-TC; 92950-TC; 93307-TC; 93970-TC; 94002-TC; 94003-TC; 94640-TC; 94760-TC; 94762-TC; 94799-TC; 99082-TC; A4216; A4217; A6253; A6403; A7526; C1751; C9113; G0378; J0171; J0282; J0692; J0696; J1100; J1650; J1720; J1940; J2001; J2060; J2185; J2248; J2250; J2370; J2543; J2997; J3010; J3370; J3490; J7030; J7040; J7042; J7050; J7060; J7070; P9017-BL; U0003